=== PATIENT | female | born 1985 | race Caucasian/White ===

== ENCOUNTER 2022-04-27 12:28 | Outpatient (CLI) | payer BC, SELFPAY ==
[2022-04-27 14:29] LABS: Chloride* 105 mmol/L (96-114)
[2022-04-27 14:30] LABS: Potassium* 5.1 mmol/L (3.6-5.1); Sodium* 136 mmol/L (135-149)
[2022-04-27 14:32] LABS: Carbon Dioxide* 24 mmol/L (20-32); Creatinine* 0.7 mg/dL (0.5-1.5); Estimated Glomerular Filt Rate 114.88
[2022-04-27 14:33] LABS: Blood Urea Nitrogen* 11 mg/dL (5-24); Calcium* 9.3 mg/dL (8.4-10.6); Glucose* 92 mg/dL (60-115)
== END 2022-04-27 12:29 | disposition home or self-care (01) ==
LOC: FBOREF 12:33
PROVIDERS: PCP Family Medicine; Visit Provider Family Medicine
DX: Z01.818 Encounter for other preprocedural examination (principal); M25.561 Pain in right knee
CPT/HCPCS: 80048

== ENCOUNTER 2022-05-15 17:19 | Emergency (ER) | payer BC, SELFPAY ==
[2022-05-15 17:32] VITALS: BP 103/67; PULSE 86; RESP 18; TEMP 36.3; O2SAT 99; BMI 28.3
--- NOTE | 2022-05-15 17:51 | ED.GENADULT ---
HPI - General Adult General Time Seen by Provider: 17:51 Date Seen: 05/15/22 Chief complaint: Jaw Injury/Pain Stated complaint: RIGHT JAW SWELLING,HEADACHE,NAUSEA,CONGESTION Time Seen by Provider: 05/15/22 17:25 Source: patient Mode of arrival: ambulatory Limitations: no limitations History of Present Illness HPI narrative: Patient is a 37 year white female who is scheduled for tubal ligation on Monday, but presents with right neck lymph node swelling over the last 2 days. She has no other real symptoms other than occasional fatigue little bit of diarrhea. She has not had loss of taste or smell or other COVID symptoms. No cough. Nursing staff reports that she has had some congestion and a headache. She denies abdominal pain. She has not been recently ill other than the nasal congestion. We will run a COVID test today. Related Data Home Medications Medication Instructions Recorded Confirmed metformin 500 mg tablet,extended 500 mg PO BID tab 04/27/22 04/27/22 release 24 hr metoprolol succinate 50 mg 50 mg PO QDAY tab 04/27/22 04/27/22 tablet,extended release 24 hr Previous Rx's Medication Instructions Recorded bupropion HCl 300 mg 24 hr tablet, 300 mg PO QDAY #90 tab 04/27/22 extended release clonazepam 1 mg tablet 0.5 - 1 mg PO BID PRN #60 tab 04/27/22 meloxicam 15 mg tablet 15 mg PO QDAY #30 tab 04/27/22 metformin 750 mg tablet,extended 1,500 mg PO QDAY #180 tab 04/28/22 release 24 hr cephalexin 500 mg capsule 500 mg PO BID #14 cap 05/15/22 Allergies Allergy/AdvReac Type Severity Reaction Status Date / Time tramadol Allergy Unknown Verified 04/27/22 12:03 Guinea pig epithelium Allergy Unknown Uncoded 04/27/22 12:03 Review of Systems Status of ROS: Reports: 6 or more systems reviewed and unremarkable except as noted in History and below [facility] Medical History Acute gastric ulcer without hemorrhage or perforation (11/02/18) 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) Cervical intraepithelial neoplasia grade 1 Gastroesophageal reflux disease Generalized anxiety disorder with panic attacks History of herpes simplex infection History of insulin resistance Hyperhidrosis of axilla Irritable bowel syndrome with diarrhea Palpitations Polycystic ovary syndrome Posttraumatic stress disorder (10/05/18) Restless legs syndrome 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) Surgical History History of laparoscopy Status post surgical removal of pilonidal cyst Social History Narrative: Medical marijuana use Single , 1 son, [employer] for mother, THC Smoking Status: Current every day smoker Exam Narrative: Exam Narrative: Objective: HEENT is unremarkable other than a right angle of the jaw as cervical adenitis mild tenderness, lymph node is swollen, mobile. Neck is supple Rest of HEENT is unremarkable Const: Vital Signs, click to edit/add: Vital Signs - 24 hr 05/15/22 17:32 Temperature 97.4 F L Pulse Rate [Pulse Oximeter] 86 Respiratory Rate 18 [facility] 103/67 Pulse Oximetry 99 Course Vital Signs Vital signs: Initial Vital Signs Temperature 97.4 F L 05/15/22 17:32 Temperature Source Temporal Artery Scan 05/15/22 17:32 Pulse Rate 86 05/15/22 17:32 Respiratory Rate 18 05/15/22 17:32 Blood Pressure 103/67 05/15/22 17:32 Blood Pressure Mean 79 05/15/22 17:32 Blood Pressure Position Supine 05/15/22 17:32 Pulse Oximetry 99 05/15/22 17:32 Oxygen Delivery Method 05/15/22 17:32 Vital Signs Temperature 97.4 F L 05/15/22 17:32 Pulse Rate 86 05/15/22 17:32 Respiratory Rate 18 05/15/22 17:32 Blood Pressure 103/67 05/15/22 17:32 Pulse Oximetry 99 05/15/22 17:32 Temperature 97.4 F L 05/15/22 17:32 Pulse Rate 86 05/15/22 17:32 Respiratory Rate 18 05/15/22 17:32 Blood Pressure 103/67 05/15/22 17:32 Pulse Oximetry 99 05/15/22 17:32 Medical Decision Making MDM Narrative Medical decision making narrative: Patient has cervical adenitis, will start her on Keflex 5 500 mg 2 tablets now in the ED, will check a SARs COVID test, she will cancel her surgery for Monday as she this is elective surgery. Should be on antibiotics for. Time, see some resolution of the right cervical adenitis. Before proceeding with surgery would recommend recheck with regular doctor in the next 4-5 days, will call back with the SARs/COVID result when it returns. Have her on Keflex 500 b.i.d. x7 days. Discharge Plan Discharge Clinical Impression: Acute cervical adenitis Patient Disposition: Home, Self-Care Condition: Stable Additional Instructions: rest, fluids, keflex x 7 days, update primary 2 days, cancel surgery this week Activity Level: Light activity Discharge Diet: Regular Prescriptions: New cephalexin 500 mg capsule 500 mg PO BID Qty: 14 0RF No Action metoprolol succinate 50 mg tablet extended release 24 hr 50 mg PO QDAY 0RF Label Comments: TAKE 1 TABLET BY MOUTH DAILY metformin 500 mg tablet extended release 24 hr 500 mg PO BID 0RF meloxicam 15 mg tablet 15 mg PO QDAY Qty: 30 0RF bupropion HCl 300 mg tablet extended release 24 hr 300 mg PO QDAY Qty: 90 1RF clonazepam 1 mg tablet 0.5 - 1 mg PO BID PRN (Reason: anxiety) Qty: 60 0RF metformin 750 mg tablet extended release 24 hr 1,500 mg PO QDAY Qty: 180 3RF Follow Up/Referrals: Calin Arango MD [Primary Care Provider] - Stand Alone Forms: [employer] Info Instructions
[2022-05-15] MEDS: cephALEXin 500 MG CAPSULE 1000 MG PO (17:53)
--- NOTE | 2022-05-15 18:03 | ED.NURSE ---
FAMILY THERAPIST swab for covid, pt would like to be called with results
[2022-05-15 23:21] LABS: SARS PCR* Negative SARS-CoV-2 (Negative)
== END 2022-05-15 18:05 | disposition home or self-care (01) ==
LOC: ED 17:55
PROVIDERS: Emergency Provider Family Medicine; PCP Family Medicine
DX: L04.0 Acute lymphadenitis of face, head and neck (principal)
CPT/HCPCS: 87635; 99283; A9270

== ENCOUNTER 2022-05-18 08:35 | Outpatient (CLI) | payer BC, SELFPAY ==
--- NOTE | 2022-05-18 10:00 | CRLHL7_ITS ---
For Patients: As a result of the Century Cures Act, medical imaging exams and procedure reports are released immediately into your electronic medical record. You may view this report before your referring provider. If you have questions, please contact your health care provider. INDICATION: Neck mass, tumor, or lymph node. TECHNIQUE: CT soft tissue of the neck was acquired with 95 cc of Isovue 370 IV contrast. COMPARISON: None. FINDINGS: Hypodense mass lesion in the right neck anteromedial to the sternocleidomastoid, deep to the parotid, and lateral to the carotid sheath. The mass measures 1.9 x 2.6 x 2.6 cm with nonuniform slightly enhancing rim. Hypodense central measures 26 HU No other mass or lymph node. Skull base: Unremarkable. Pharynx/Larynx/Trachea: Epiglottis is normal. Airway is patent. Adjacent soft tissues are normal. Salivary glands: Unremarkable. Thyroid gland: Unremarkable. No significant nodules. Lymph nodes: No lymphadenopathy. Vessels: Unremarkable for age. Bones: Unremarkable for age. Misc: No inflammation, mass or fluid collection. Lung apices: Unremarkable. IMPRESSION: Hypodense mass lesion in the right neck likely 2nd brachial cleft cyst with slightly prominent rim possibly due to superimposed infection. Necrotic lymph node is less likely although not entirely excluded. Recommend ENT consultation for further management and possible FNA. Please note that all CT scans at this facility use dose modulation, iterative reconstruction, and/or weight-based dosing when appropriate to reduce radiation dose to as low as reasonably achievable. Dictated by Ari Tidwell MD @ 05/18/2022 11:30:48 AM (Electronically Signed)
== END 2022-05-18 08:36 | disposition home or self-care (01) ==
PROVIDERS: PCP Family Medicine; Visit Provider Family Medicine
DX: R22.1 Localized swelling, mass and lump, neck (principal); Q18.0 Sinus, fistula and cyst of branchial cleft
CPT/HCPCS: 70491; Q9967

== ENCOUNTER 2022-06-08 11:03 | Outpatient (RCR) | payer BC, SELFPAY ==
--- NOTE | 2022-06-08 15:15 | PT.OPEX ---
PT [facility] Outpatient Eval PT [facility] Outpatient Eval Start: 06/08/22 07:58 Freq: Status: Active Protocol: Document 06/08/22 07:58 ENM (Rec: 06/08/22 12:06 ENM [id number]) E-signed By Hillary Ponce, DPT Physical Therapy Outpatient Evaluation Insurance Information Insurance Name Medicaid,Blue Cross/Blue Shield Insurance Information/Comments [place] Medical Diagnosis pain in right knee Treating Diagnosis pain in right knee knee, decreased proximal hip strength, impaired balance, decreased glute strength Referring MD Arango Subjective Subjective Patient presents to PT for complaints of the right knee giving out on her. Recently these feelings are becoming more frequent. She feels that every time she moves the knee there is a click and it will pop out. She denies any recent injuries. Back in 6th grade she did dislocate it. Will notice it with walking or going from sitting to standing . States that she feels like the knee is going sideways. She is nervous when performing the stairs, she leads with her left and then holds on tight to the railing. She has pains when the knees give out otherwise she doesn't have much significant discomfort. Does have a constant ache at the top of her knee cap. 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 Images in 2019 No MRI evidence of meniscal tear, ligamentous injury, fracture or osteochondral lesion. 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 Objective Other/Pertinent Objective ROM L knee 3-0-126 R knee 2-0-125 + for pain with knee ext hip flexion IR WNL B no pains ER WNL B no pains ankle DF and PF within normal limits, calf tightness B strength: knee extensors L 3+/5 R 4/5 hip flexors L 3+/5 R 4/5 hip abductors 4-/5 B hip extensors 4-/5 B palpation/joint mobility: patellar mobility normal mobility B + for pain palpating quad tendon and bilateral anterior joint line gait/balance: Patient ambulating with knee hyperextension bilaterally SLS no difficulty on the L, R difficulty maintaining knee extension and stability posture: bilateral increased knee extension, calcaneal eversion greater on R compared to L, 0.5 finger under the arch special tests: anterior drawer - posterior drawer - varus - valgus + for lateral joint line pains and slightly increased laxity Mcmurrays + for clicking and slight pains with IR and ER thessaly + for sharper pains with ER squat- patient with with deep squat, ankle pronation B, heels coming up off floor, wide hips and instability of the knee while performing sit to stand knee valgus and ankle pronation while performing Functional Test Performed & Score LEFS 38/80 Assessment Assessment/Impression Patient is a 37 year old female presenting with right knee pains and feelings of instability. Patient has had these pains and instability for a while but more lately they have been more frequent. They are often brought on with walking, sitting to stand and performing the stairs. She had an MRI 2 years ago with no significant findings although symptoms were present at that time. 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 Her primary goal for PT is to improve pain and knee stability. Upon assessment patients concordant pains brought on with end range knee extension, palpation of joint line and superior patella, Mcmurrays, Thessaly and Valgus knee testing. Patient displays significant ankle pronation with squatting and sit to stands. As well as knee hyperextension bilaterally in standing and with ambulation. Global proximal hip and glute weakness noted with MMT. As well as significant difficulty maintaining balance and stability with R SLS. Symptoms consistent with likely meniscus pathology. Patient would greatly benefit from skilled PT to address impairments stated above in order to be able to perform all functional mobility and caregiving activities without significant discomfort or difficulty Primary Functional Limitations walking, stairs, sit to stands Plan of Care Rehabilitation Potential Good Physical Therapy Goals In 8 weeks: 1. Patient will be IND with HEP and self management of symptoms 2. Patient will be able to walk with less than 2/10 and no reports of knee buckling to demonstrate improvements in walking tolerance 3. Patient will be able to perform the stairs with less reliance of railing and improved confidence for household navigation 3. Patient will be able to perform x5 squat with improved knee form and posture to decrease risk of reinjury with caregiving activities 4. Patient will perform sit to stands consistently throughout her day without reports of knee catching or instability for improved ease of transfers 5. Patient will improve LEFS from 38 to 47 (MDC 9) to demonstrate improvements in LE functional ability Coordination/Communication With Referral Source Treatment Plan/Direct Interventions Electrical Stimulation,Gait Training,Ice/Cold/ Vasopneumatic,Joint Mobilization,Manual Therapy, Neuromuscular Re-ed,Self-Care/ Home Management,Therapeutic Activities,Therapeutic Exercises Frequency/Duration 1x a week for 8 weeks, as needed for 2-3 visits Patient Will Be Discharged From Therapy Completion of LTG(s), Independent w/HEP Evaluation Billing Untimed Code Treatment Minutes 29 Complexity Moderate Certification Information Initial Certification Date 06/08/22 Ending Certification Date 08/31/22 Provider Signature Shows Agreement With POC & Medical Necessity Physician Comment/Change Comment or Changes Physician NPI Number #
== END 2022-08-24 13:51 | disposition home or self-care (01) ==
PROVIDERS: PCP Family Medicine; Visit Provider Family Medicine
DX: M25.561 Pain in right knee (principal); Z51.89 Encounter for other specified aftercare
CPT/HCPCS: 97110; 97162

== ENCOUNTER 2022-06-09 09:03 | Day surgery (SDC) | payer BC, SELFPAY ==
[2022-06-09] VITALS (20 sets, daily range): BP systolic 66–108; BP diastolic 21–73; PULSE 44–90; RESP 10–16; TEMP 35.9–36.6; O2SAT 90–100; BMI 33.7
[2022-06-09] MEDS: LACTATED RINGERS 1000 ML 1,000 ML 100 ML IV (09:30)
[2022-06-09] MEDS: LACTATED RINGERS 1000 ML 1,000 ML 35 ML IV (09:30)
[2022-06-09] MEDS: SODIUM CHLORIDE 0.9 % (FLUSH) 10 ML SYRINGE IVF (09:30)
--- NOTE | 2022-06-09 12:36 | W.ANESCHARGE ---
Anesthesia Charges Start Date/Time Anesthesia Start Date: 06/09/22 Anesthesia Start Time: 11:25 Stop Date/Time Anesthesia Stop Date: 06/09/22 Anesthesia Stop Time: 12:35 Summary Emergency: No
--- NOTE | 2022-06-09 12:44 | W.PM.GYNPROC ---
Procedure Note Date Seen: 06/09/22 Procedure Details: PREOPERATIVE DIAGNOSIS: Undesired fertility POSTOPERATIVE DIAGNOSIS: Same PROCEDURE: Laparoscopic bilateral salpingectomy SURGEON: Neelam Leong MD ANESTHESIA: General IV FLUIDS: 800 mL crystalloid URINE OUTPUT: 100 mL EBL: Less than 5 mL FINDINGS: 1. Upon pelvic exam under anesthesia, the cervix and vagina were normal in appearance. Uterus was mobile and anteverted, of normal size and texture. There were no palpable adnexal masses. 2. Upon laparoscopy, survey of the upper abdomen revealed a normal appearance to the inferior edge of the liver, gallbladder and stomach. Bowels were grossly normal appearance, as was the appendix. Survey of the pelvis revealed normal appearance to the uterus. Bilateral tubes and ovaries were normal in appearance. The cul-de-sac and bladder reflection were normal in appearance. COMPLICATIONS: None PROCEDURE IN DETAIL: Patient was taken to the operating room with IV running. She was positioned in dorsal lithotomy position with her legs fully supported in Yellofin stirrups. General anesthesia was administered. She was prepped and draped in the usual sterile fashion. Bimanual exam was performed for the above-noted findings. Speculum was inserted. A single-toothed uterine manipulator was inserted through the cervix into the lower uterine segment, and affixed to the anterior cervical lip. Speculum was removed. Johnson catheter was placed. Patient's legs were placed in neutral position. Attention was turned to patient's abdomen. The infraumbilical area was infiltrated with small amount of Marcaine. An infraumbilical incision was made with a scalpel and carried through to the underlying layer of fascia with a hemostat. The 5 mm Fios Kii trocar was assembled with laparoscope within, and insufflator attached. While tenting up the abdomen manually, the trocar was passed through the anterior abdominal wall into the peritoneal cavity. Trocar was removed. Pneumoperitoneum was achieved. Survey of abdomen and pelvis revealed the above-noted findings. Two additional port sites were created. The first was in the patient's left lower quadrant, just superior medial to the left ASIS. The second was a hand's breath superior to and slightly medial to the 1st. Each was infiltrated with small amount of Marcaine prior to incision. A 5 mm incision was made at each site, making sure the large vessels were out of harm's way. A 5 mm Fios Kii port was inserted at each site, under direct visualization and without complication. The balloon on each of the ports was inflated, holding each in place. The left fallopian tube was grasped at its fimbriated edge. It was divided from its vascular supply with the LigaSure device, and dissection was moved laterally to medially through the mesosalpinx, reaching the left uterine cornua. The tube was then cauterized and transected at the cornua. It was removed from the abdomen and sent to pathology. Attention was then turned to the right fallopian tube, for which the vascular supply was similarly cauterized and transected with the LigaSure. Dissection moved laterally to medially through the mesosalpinx, reaching the right uterine cornua. Tube was cauterized and transected at the cornua. Hemostasis was noted at both sites. All instruments were removed from the laparoscopic ports. Insufflation was released. Balloon tips on all port sites were deflated. Each port was removed. The skin of each port site was closed with a subcuticular stitch of 4-0 Monocryl. Surgical glue was applied above this. The uterine manipulator was removed. Speculum exam revealed some bleeding of the anterior lip of the cervix, addressed with silver nitrate stick. Johnson catheter was removed. Patient tolerated procedure well and was taken to recovery area in stable condition.
[2022-06-09] MEDS: ePHEDrine sulfate 5 MG/ML inj IVP ×2 (12:55→13:29)
[2022-06-09] MEDS: diphenhydrAMINE 50 MG/ML inj IVP (12:57)
[2022-06-09] MEDS: PHENYLEPHRINE 100 MCG/ML SYRINGE IVP ×4 (13:10→13:45)
--- NOTE | 2022-06-09 14:39 | PC.NURSE ---
anesthesia is aware of low bp. pt is completely asymptomatic. she is fully alert, eating drinking. head is only very slightly elevated so she can safely drink. fluids are open. cuff has been changed, site changed. no difference
[2022-06-10 09:01] LABS: Ur HCG Qualitative* Negative (Negative)
--- NOTE | 2022-06-20 09:35 | SUR.OPER ---
OUT OF ROOM AND ANESTHESIA END TIMES CALCULATED FROM ANESTHESIA'S DOCUMENTATION OF THEIR TIMES.
== END 2022-06-09 15:07 | disposition home or self-care (01) ==
PROVIDERS: Obstetrics & Gynecology; PCP Family Medicine; Visit Provider Obstetrics & Gynecology
PROC: (CPT 58661; principal; 2022-06-09 10:15)
DX: Z30.2 Encounter for sterilization (principal)
CPT/HCPCS: 58661; 00840; 36415; 81025; 84703; 85018; 86850; 86900; 86901; 88302; J0330; J1100; J1200; J1885; J2250; J2370; J2405; J2704; J2710; J3010; J7120

== ENCOUNTER 2022-08-08 08:51 | Outpatient (CLI) | payer BC, SELFPAY ==
[2022-08-08 13:46] LABS: Chloride* 101 mmol/L (96-114); Sodium* 138 mmol/L (135-149)
[2022-08-08 13:48] LABS: Creatinine* 0.9 mg/dL (0.5-1.5); Estimated Glomerular Filt Rate 85 ml/min
[2022-08-08 13:49] LABS: Blood Urea Nitrogen* 18 mg/dL (5-24); Carbon Dioxide* 27 mmol/L (20-32); Glucose* 89 mg/dL (60-115)
[2022-08-08 14:39] LABS: SARS PCR* Negative SARS-CoV-2 (Negative)
== END 2022-08-08 08:52 | disposition home or self-care (01) ==
PROVIDERS: PCP Family Medicine; Visit Provider Family Medicine
DX: Z01.818 Encounter for other preprocedural examination (principal)
CPT/HCPCS: 80048; 87635

== ENCOUNTER 2022-11-16 14:04 | Outpatient (CLI) | payer BC, SELFPAY ==
[2022-11-16 17:35] LABS: Albumin* 3.8 g/dL (3.3-5.0); Chloride* 110 mmol/L (96-114); Potassium* 4.3 mmol/L (3.6-5.1); Sodium* 139 mmol/L (135-149)
[2022-11-16 17:37] LABS: Bilirubin Total* 0.6 mg/dL (0.1-1.5); Carbon Dioxide* 25 mmol/L (20-32); Creatinine* 0.6 mg/dL (0.5-1.5); Estimated Glomerular Filt Rate 119 ml/min
[2022-11-16 17:38] LABS: Alanine Aminotransferase* 50 U/L (4-35); Alkaline Phosphatase* 39 U/L (40-150); Aspartate Amino Transferase* 113 U/L (12-35); Blood Urea Nitrogen* 6 mg/dL (5-24); Calcium* 9.3 mg/dL (8.4-10.6); Glucose* 85 mg/dL (60-115); Total Protein* 6.4 g/dL (6.0-8.3)
[2022-11-16 20:54] LABS: Creatine Kinase* 4253 U/L (41-117)
== END 2022-11-16 14:05 | disposition home or self-care (01) ==
PROVIDERS: PCP Family Medicine; Visit Provider Internal Medicine
DX: M62.82 Rhabdomyolysis (principal)
CPT/HCPCS: 80053; 82550; 87086

== ENCOUNTER 2022-11-21 11:07 | Emergency (ER) | payer BC, SELFPAY ==
[2022-11-21 11:11] VITALS: BP 110/71; PULSE 65; RESP 18; TEMP 36.8; O2SAT 100; BMI 27.8
[2022-11-21] MEDS: 0.9 % SODIUM CHLORIDE 1000 ml 1,000 ML 6000 ML IV (11:53)
[2022-11-21 12:00] LABS: Basophils Absolute Auto 0.01 K/uL (0.00-0.30); Basophils Percent Auto 0.1 % (0.0-3.0); Eosinophils Absolute Auto 0.28 K/uL (0.00-0.50); Eosinophils Percent Auto 3.7 % (0.0-7.0); Hematocrit 34.3 % (33.0-51.0); Hemoglobin* 11.8 gm/dL (12.0-16.0); Immature Granulocytes Abs Auto 0.01 K/uL (0.00-0.30); Immature Granulocytes Pct Auto 0.1 %; Lymphocytes Absolute Auto 2.44 K/uL (0.90-2.90); Lymphocytes Percent Auto 32.1 % (20-44); Mean Corpuscular HGB Conc 34 gm/dL (32-36); Mean Corpuscular Hemoglobin 31 pg (26-34); Mean Corpuscular Volume 90 fL (80-100); Monocytes Percent Auto 5.7 % (0.0-11.0); Neutrophils Absolute Auto 4.43 K/uL (1.7-7.0); Neutrophils Percent Auto 58.3 % (42.0-72.0); Platelet Count* 503 K/uL (140-440); RDW Coefficient of Variation % 13.6 % (11.5-15.5); Red Blood Count 3.81 m/uL (4.00-5.20)
[2022-11-21 12:03] LABS: Slide Review Reflex No
[2022-11-21 12:11] LABS: Chloride* 110 mmol/L (96-114); Sodium* 140 mmol/L (135-149)
[2022-11-21 12:12] LABS: Potassium* 3.4 mmol/L (3.6-5.1)
[2022-11-21 12:14] LABS: Carbon Dioxide* 27 mmol/L (20-32); Creatinine* 0.7 mg/dL (0.5-1.5); Est. Creatinine Clearance* 95.94; Estimated Glomerular Filt Rate 115 ml/min
[2022-11-21 12:15] LABS: Alanine Aminotransferase* 29 U/L (4-35); Alkaline Phosphatase* 45 U/L (40-150); Amylase* 83 U/L (18-89); Aspartate Amino Transferase* 22 U/L (12-35); Bilirubin Direct* 0.2 mg/dL (0.0-0.5); Bilirubin Total* 0.4 mg/dL (0.1-1.5); Blood Urea Nitrogen* 17 mg/dL (5-24); Creatine Kinase* 84 U/L (41-117); Glucose* 97 mg/dL (60-115); Total Protein* 6.8 g/dL (6.0-8.3)
[2022-11-21 12:19] LABS: C Reactive Protein* < 0.5 mg/dL (0.5-1.0)
--- NOTE | 2022-11-21 12:34 | ED_ITS ---
"HPI - General Adult General Chief complaint: Back Injury/Pain Stated complaint: mid lower back pain Time Seen by Provider: 11/21/22 11:08 History of Present Illness HPI narrative: Patient is a 37 year white female who has got multiple medical issues, follows with Dr. Arango, was admitted by her report with rhabdomyolysis to the [facility] for an overnight hydration episode within the last week or 2. She is feeling better and then today feels a little more fatigued presents to the ED. she reports she has had a history kidney stones, her medication and chart is reviewed. She denies hematuria, denies shortness of breath, denies chest pain, she gets occasional achiness in her back. She has no skin rashes no fever. Related Data Home Medications Medication Instructions Recorded Confirmed valacyclovir 1 gram tablet 1,000 mg PO DAILY 05/23/22 10/10/22 Cannabinoids PO 08/05/22 10/10/22 Previous Rx's Medication Instructions Recorded metformin 750 mg tablet,extended 1,500 mg PO QDAY #180 tabs 04/28/22 release 24 hr metoprolol succinate 50 mg 50 mg PO QDAY #90 tabs 07/11/22 tablet,extended release 24 hr meloxicam 15 mg tablet 15 mg PO QDAY #90 tabs 09/06/22 prochlorperazine maleate 10 mg 10 mg PO TID PRN nausea and 09/15/22 tablet (Compazine) vomiting #30 tabs escitalopram oxalate 5 mg tablet 5 - 20 mg PO QDAY #70 tabs 10/04/22 (Lexapro) sumatriptan succinate 6 mg/0.5 mL 6 mg (0.5 mL) subcut BID PRN 10/18/22 subcutaneous solution migraine headache #2.5 mL dextroamphetamine-amphetamine ER 10 mg PO QAM #7 caps 10/20/22 10 mg 24hr capsule,extend release (Adderall XR) dextroamphetamine-amphetamine ER 20 mg PO QAM #90 caps 10/20/22 20 mg 24hr capsule,extend release (Adderall XR) clonazepam 1 mg tablet 0.5 - 1 mg PO BID PRN anxiety #60 11/14/22 tabs Allergies Allergy/AdvReac Type Severity Reaction Status Date / Time tramadol Allergy Unknown Verified 11/16/22 13:43 Guinea pig epithelium Allergy Unknown Uncoded 11/16/22 13:43 Review of Systems Status of ROS: Reports: 10 or more systems reviewed and unremarkable except as noted in History and below PFSH FOR[facility]LY [facility] Medical History Acute gastric ulcer without hemorrhage or perforation (11/02/18) Anxiety 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) Borderline personality disorder Cervical intraepithelial neoplasia grade 1 Depression Gastroesophageal reflux disease Generalized anxiety disorder with panic attacks History of herpes simplex infection History of insulin resistance Hyperhidrosis of axilla Irritable bowel syndrome with diarrhea Marijuana use Migraine Palpitations Polycystic ovary syndrome Post-traumatic stress Posttraumatic stress disorder (10/05/18) Restless legs syndrome Rhabdomyolysis 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) Surgical History History of laparoscopy History of tubal ligation Second branchial cleft cyst Status post surgical removal of pilonidal cyst Social History Narrative: Medical marijuana use 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, 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, 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, 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 Smoking Status: Current every day smoker How often do you have a drink containing alcohol: monthly or less How many standard drinks containing alcohol do you have on a typical day: 1 or 2 AUDIT-C Alcohol total score: 1 Non-prescribed substance use: denies use Caffeine: Yes Little interest or pleasure in doing things: more than half the days Feeling down, depressed, or hopeless: nearly every day service: No Exam Narrative: Exam Narrative: Objective: Patient's vital signs unremarkable she is alert orient x3, no distress, no cyanosis HEENT unremarkable pulse regular abdomen benign soft nontender back exam is unremarkable no CVA tenderness Extremities good perfusion neurologic nonfocal Const: Vital Signs, click to edit/add: Vital Signs - 24 hr 11/21/22 11:11 Temperature 98.2 F Pulse Rate [Right Pulse Oximeter] 65 Respiratory Rate 18 Blood Pressure [Ri ght Upper Arm] 110/71 Pulse Oximetry 100 Oxygen Delivery Me thod Room Air Course Vital Signs Vital signs: Initial Vital Signs Temperature 98.2 F 11/21/22 11:11 Temperature Source Temporal Artery Scan 11/21/22 11:11 Pulse Rate 65 11/21/22 11:11 Respiratory Rate 18 11/21/22 11:11 Blood Pressure 110/71 11/21/22 11:11 Blood Pressure Mean 84 11/21/22 11:11 Blood Pressure Position Sitting 11/21/22 11:11 Pulse Oximetry 100 11/21/22 11:11 Oxygen Delivery Method 11/21/22 11:11 Vital Signs Temperature 98.2 F 11/21/22 11:11 Pulse Rate 65 11/21/22 11:11 Respiratory Rate 18 11/21/22 11:11 Blood Pressure 110/71 11/21/22 11:11 Pulse Oximetry 100 11/21/22 11:11 Oxygen Delivery Method 11/21/22 11:11 Temperature 98.2 F 11/21/22 11:11 Pulse Rate 65 11/21/22 11:11 Respiratory Rate 18 11/21/22 11:11 Blood Pressure 110/71 11/21/22 11:11 Pulse Oximetry 100 11/21/22 11:11 Oxygen Delivery Method 11/21/22 11:11 Medical Decision Making MDM Narrative Medical decision making narrative: Patient is a 37 year white female on multiple medicines and has multiple medical problems with an episode of rhabdomyolysis by her history at [place]. Will recheck her CK recheck her electrolytes given IV fluid bolus of 1 L. Addendum: Patient's laboratory studies look very reassuring specifically her CK is normal sees, CRP is negative, white count is normal, hemoglobin is 11.8, platelet count is slightly elevated at 503,000 hundred three thousand potassium low normal at 3.4. Liver function profile negative., amylase normal. This point I would recommend for many that she go home rest light activity, continue her present medications, follow-up with primary care in the next 2-3 days. Push adequate fluids. Return as needed. Lab Data Labs: Lab Results 11/21/22 11/21/22 11/21/22 Range/Units 11:45 11:45 11:45 WBC 7.60 (4.50-11.00) K/uL RBC 3.81 L (4.00-5.20) m/uL Hgb 11.8 L (12.0-16.0) gm/dL Hct 34.3 (33.0-51.0) % MCV 90 (80-100) fL MCH 31 (26-34) pg MCHC 34 (32-36) gm/dL RDW Coeff of Shira 13.6 (11.5-15.5) % Plt Count 503 H (140-440) K/uL Neut % (Auto) 58.3 (42.0-72.0) % Lymph % (Auto) 32.1 (20-44) % Terrell % (Auto) 5.7 (0.0-11.0) % Eos % (Auto) 3.7 (0.0-7.0) % Baso % (Auto) 0.1 (0.0-3.0) % Neut # (Auto) 4.43 (1.7-7.0) K/uL Lymph # (Auto) 2.44 (0.90-2.90) K/uL Terrell # (Auto) 0.40 (0.00-0.90) K/UL Eos # (Auto) 0.28 (0.00-0.50) K/uL Baso # (Auto) 0.01 (0.00-0.30) K/uL Sodium 140 (135-149) mmol/L Potassium 3.4 L (3.6-5.1) mmol/L Chloride 110 (96-114) mmol/L Carbon Dioxide 27 (20-32) mmol/L BUN 17 (5-24) mg/dL Creatinine 0.7 (0.5-1.5) mg/dL Estimated Creat Clear 95.94 Estimated GFR 115 ml/min Glucose 97 (60-115) mg/dL Calcium 9.0 (8.4-10.6) mg/dL Total Bilirubin 0.4 (0.1-1.5) mg/dL Direct Bilirubin 0.2 (0.0-0.5) mg/dL AST 22 (12-35) U/L ALT 29 (4-35) U/L Alkaline Phosphatase 45 (40-150) U/L Total Creatine Kinase 84 (41-117) U/L C-Reactive Protein < 0.5 L (0.5-1.0) mg/dL Total Protein 6.8 (6.0-8.3) g/dL Albumin 4.0 (3.3-5.0) g/dL Amylase 83 (18-89) U/L Discharge Plan Discharge Clinical Impression: Fatigue Patient Disposition: Home w/ Parent or Adult Condition: Stable Additional Instructions: Rest, fluids, Tylenol as needed, follow-up with primary care in the next couple of days. Lab studies today look reassuring. Activity Level: Light activity Discharge Diet: Regular Prescriptions: No Action Cannabinoids PO escitalopram oxalate [Lexapro] 5 mg tablet 5 - 20 mg PO QDAY Qty: 70 0RF Rx Instructions: take 1 t qd x 1 wk, then 2 t qd x 1 wk, then 3 t qd x 1 wk, then 4 t qd for anxiety valacyclovir 1 gram tablet 1,000 mg PO DAILY metformin 750 mg tablet extended release 24 hr 1,500 mg PO QDAY Qty: 180 3RF metoprolol succinate 50 mg tablet extended release 24 hr 50 mg PO QDAY Qty: 90 1RF meloxicam 15 mg tablet 15 mg PO QDAY Qty: 90 1RF prochlorperazine maleate [Compazine] 10 mg tablet 10 mg PO TID PRN (Reason: nausea and vomiting) Qty: 30 1RF sumatriptan succinate 6 mg/0.5 mL solution 6 mg subcut BID PRN (Reason: migraine headache) Qty: 2.5 5RF Rx Instructions: INJECT 6 MG SC AT ONSET OF HEADACHE, MAY REPEAT ONCE IN 1 HR PRN, MAX 2 INJECTIONS/24 HRS dextroamphetamine-amphetamine [Adderall XR] 10 mg capsule,extended release 24hr 10 mg PO QAM Qty: 7 0RF dextroamphetamine-amphetamine [Adderall XR] 20 mg capsule,extended release 24hr 20 mg PO QAM Qty: 90 0RF Rx Instructions: start after seven days of 10 mg tab daily clonazepam 1 mg tablet 0.5 - 1 mg PO BID PRN (Reason: anxiety) Qty: 60 0RF Follow Up/Referrals: Calin Arango MD [Primary Care Provider] - Stand Alone Forms: Mult[employer] | QuizScore Info Instructions"
== END 2022-11-21 12:44 | disposition home or self-care (01) ==
PROVIDERS: Emergency Provider Family Medicine; PCP Family Medicine
DX: R53.83 Other fatigue (principal)
CPT/HCPCS: 36415; 80048; 80076; 82150; 82550; 85025; 86140; 99283; 99284; J7030

== ENCOUNTER 2022-11-24 09:48 | Outpatient (CLI) | payer BC, SELFPAY ==
[2022-11-24 13:51] LABS: Chloride* 109 mmol/L (96-114)
[2022-11-24 13:52] LABS: Albumin* 4.1 g/dL (3.3-5.0); Potassium* 5.1 mmol/L (3.6-5.1); Sodium* 139 mmol/L (135-149)
[2022-11-24 13:54] LABS: Creatinine* 0.6 mg/dL (0.5-1.5); Estimated Glomerular Filt Rate 119 ml/min
[2022-11-24 13:55] LABS: Alanine Aminotransferase* 25 U/L (4-35); Alkaline Phosphatase* 47 U/L (40-150); Aspartate Amino Transferase* 24 U/L (12-35); Bilirubin Total* 0.4 mg/dL (0.1-1.5); Blood Urea Nitrogen* 20 mg/dL (5-24); Calcium* 9.6 mg/dL (8.4-10.6); Carbon Dioxide* 25 mmol/L (20-32); Creatine Kinase* 60 U/L (41-117); Glucose* 93 mg/dL (60-115); Total Protein* 6.8 g/dL (6.0-8.3)
== END 2022-11-24 09:49 | disposition home or self-care (01) ==
PROVIDERS: PCP Family Medicine; Visit Provider Family Medicine
DX: M62.82 Rhabdomyolysis (principal)
CPT/HCPCS: 80053; 82550; 83735

== ENCOUNTER 2023-04-04 11:02 | Outpatient (CLI) | payer BC, SELFPAY | END 2023-04-04 11:03 | disposition home or self-care (01) | PROVIDERS: PCP Family Medicine; Visit Provider Nurse Practitioner Family | DX: Z79.899 Other long term (current) drug therapy (principal) | CPT/HCPCS: 80061; 82306; 84443 ==

== ENCOUNTER 2023-08-10 13:02 | Outpatient (CLI) | payer BC, SELFPAY ==
--- OUTSIDE RECORDS SUMMARY | 2023-08-13 17:05 | XMS_ITS | Continuity of Care Document ---
Author Name Unknown Organization [facility] Address [address] [place] [address] Phone Care Team Providers Care Fiberglass Quality Technician Name Role Phone Kaila BENJAMIN, PhD, Jag Unavailable Unavai lable Allergies, Adverse Reactions, Alerts Substance Reaction Status Criticality tramadol Active No Information Medications Medication Instructions Dosage Effective Dates (start - stop) Status Comments VALACYCLOVIR (unknown strength) Not Available - Active SUMATRIPTAN (unknown strength) Not Available - Active SPIRONOLACTONE (unknown strength) Not Available - Active PRAMIPEXOLE DIHYDROCHLORIDE (unknown strength) Not Available - Active ONDANSETRON ODT (unknown strength) Not Available - Active NORLYDA (unknown strength) Not Available - Active METFORMIN HCL (unknown strength) Not Available - Active LORAZEPAM (unknown strength) Not Available - Active LIDOCAINE (unknown strength) Not Available - Active GLYCOPYRROLATE (unknown strength) Not Available - Active GABAPENTIN (unknown strength) Not Available - Active CYCLOBENZAPRINE HCL (unknown strength) Not Available - Active BACLOFEN (unknown strength) Not Available - Active Procedures Procedure Date Office/Outpatient Visit,New, Mod 2020 X-Ray Exam Of Neck Spine, 4+ Views Advance Directives Directive Yes / No Effective Date File Name No Information Encounters Encounter Description Practice Location Reason(s) For Visit Diagnoses Date Provider Providers Copied on Encounter [facility], [address], [place], [id number], [place] tel:[phone] [facility] No Information [facility]. [facility], [address], [place], [address], [place]. tel:[phone] Office/Outpat ient Visit,New, Mod [facility], [address], [facility] [place] [place], [id number], [place] tel:[phone] [facility] No Information 1 Kaila Rm. [facility], [address], [place], [address], [place]. tel:[phone] Referring Provider: Calin Arango, [address], [address]. tel:[phone] Family History Family Member Type Diagnosis Age At Onset No Information Payers Payer name Insurance type Covered libertarian ID Authordanyell hargrove(s) BS [employer] (BRENDA) [id number] Social History Type Description Quantity Date Captured Comments Sex Female Smoking Status No Information Chief Complaint And Reason For Visit No Information Reason For Referral Reason For Referral No Information History Of Present Illness Encounter Date Complaint History Of Prese nt Illness No Information Functional Status Date Functional Assessmen t No Information Instructions Date Instruction Additional Infor mation No Information Assessments Type Assessment Date No Information Patient Care Teams Name Effective Dates (start - stop) Status Members No Information
== END 2023-08-10 13:03 | disposition home or self-care (01) ==
LOC: NFLDREF 08-13 17:04
PROVIDERS: PCP Family Medicine; Referring Provider Family Medicine; Visit Provider Family Medicine
DX: R30.0 Dysuria (principal); F41.1 Generalized anxiety disorder; F41.0 Panic disorder [episodic paroxysmal anxiety]; L73.2 Hidradenitis suppurativa; M54.9 Dorsalgia, unspecified
CPT/HCPCS: 81001

== ENCOUNTER 2023-08-25 13:41 | Emergency (ER) | payer BC, SELFPAY ==
[2023-08-25 13:59] VITALS: BP 105/69; PULSE 74; RESP 16; TEMP 36.7; O2SAT 100; BMI 22.3
--- NOTE | 2023-08-25 14:18 | CRLHL7_ITS ---
For Patients: As a result of the Century Cures Act, medical imaging exams and procedure reports are released immediately into your electronic medical record. You may view this report before your referring provider. If you have questions, please contact your health care provider. INDICATION: Chest pain and shortness of breath. TECHNIQUE: Chest 2 views. COMPARISON: November 06, 2017. FINDINGS: Cardiovascular and mediastinum: Heart size and vasculature are normal in caliber and appearance. Lungs and pleural spaces: Lungs are clear. No sign of infiltrate or mass. No sign of pleural effusion. No pneumothorax. Bones and soft tissues: No significant findings. IMPRESSION: No acute or significant findings. Dictated by Ruben Carrasco MD @ 08/25/2023 3:42:52 PM (Electronically Signed)
--- OUTSIDE RECORDS SUMMARY | 2023-08-25 14:31 | XMS_ITS | Continuity of Care Document ---
Author Name Unknown Organization [facility] Address [address] [place] [address] Phone Care Team Providers Care Faculty Research Assistant Name Role Phone Kaila BENJAMIN, PhD, Jag [...] Copied on Encounter [facility], [address], [place], [id number], [place] tel:[phone] [facility] No Information Kaila Rm. [facility], [address], [place], [address], [place]. tel:[phone] Office/Outpat ient Visit,New, Mod [facility], [address], [facility] [place], [id number], [place] tel:[phone] [facility] No Information 1 Kaila [facility]m. [facility], [address], [place], [address], [place]. tel:[phone] Referring Provider: Calin Arango, [address], [address]. tel:[phone] Family History Family Member Type Diagnosis Age At Onset No Information Payers Payer name Insurance type Covered alliance party ID Authordanyell hargrove(s) BS [employer] (BRENDA) [id number] Social History Type Description Quantity Date Captured [...]
[2023-08-25 14:41] LABS: Basophils Absolute Auto 0.02 K/uL (0.00-0.30); Basophils Percent Auto 0.2 % (0.0-3.0); Eosinophils Absolute Auto 0.32 K/uL (0.00-0.50); Eosinophils Percent Auto 3.5 % (0.0-7.0); Hematocrit 39.7 % (33.0-51.0); Hemoglobin* 13.2 gm/dL (12.0-16.0); Immature Granulocytes Abs Auto 0.01 K/uL (0.00-0.30); Immature Granulocytes Pct Auto 0.1 %; Lymphocytes Absolute Auto 3.64 K/uL (0.90-2.90); Lymphocytes Percent Auto 39.3 % (20-44); Mean Corpuscular HGB Conc 33 gm/dL (32-36); Mean Corpuscular Hemoglobin 33 pg (26-34); Mean Corpuscular Volume 99 fL (80-100); Neutrophils Absolute Auto 4.54 K/uL (1.7-7.0); Neutrophils Percent Auto 48.9 % (42.0-72.0); Platelet Count* 547 K/uL (140-440); RDW Coefficient of Variation % 12.8 % (11.5-15.5); Red Blood Count 4.02 m/uL (4.00-5.20); White Blood Count* 9.27 K/uL (4.50-11.00)
[2023-08-25 14:48] LABS: Albumin* 4.2 g/dL (3.3-5.0); Chloride* 96 mmol/L (96-114); Sodium* 137 mmol/L (135-149)
[2023-08-25 14:49] LABS: Potassium* 3.4 mmol/L (3.6-5.1)
[2023-08-25 14:50] LABS: Creatinine* 0.8 mg/dL (0.5-1.5); Est. Creatinine Clearance* 83.14; Estimated Glomerular Filt Rate 97 ml/min
[2023-08-25 14:51] LABS: Alanine Aminotransferase* 42 U/L (4-35); Alkaline Phosphatase* 48 U/L (40-150); Anion Gap 13 mEq/L (7-15); Aspartate Amino Transferase* 40 U/L (12-35); Bilirubin Total* 0.5 mg/dL (0.1-1.5); Blood Urea Nitrogen* 11 mg/dL (5-24); Calcium* 9.1 mg/dL (8.4-10.6); Carbon Dioxide* 28 mmol/L (20-32); Glucose* 76 mg/dL (60-115); Lipase* 52 U/L (23-300); Total Protein* 7.2 g/dL (6.0-8.3)
[2023-08-25 14:54] LABS: Slide Review Reflex No
[2023-08-25] MEDS: KETOROLAC 15 MG/ML inj IVP (15:03)
[2023-08-25] MEDS: diphenhydrAMINE 50 MG/ML inj 25 MG IVP (15:03)
[2023-08-25] MEDS: METOCLOPRAMIDE HCL 5 MG/ML INJ 10 MG IVP (15:03)
[2023-08-25] MEDS: LACTATED RINGERS 1000 ML 1,000 ML IV (15:03)
[2023-08-25 15:25] LABS: PCR FLU A Negative PCR FLU A (Negative); PCR FLU B Negative PCR FLU B (Negative)
[2023-08-25 15:28] LABS: SARS PCR* Negative SARS-CoV-2 (Negative)
--- NOTE | 2023-08-25 15:34 | ED_ITS ---
HPI - General Adult General Chief complaint: Nausea/Vomiting Stated complaint: here yest, chest pain/nausea-Rx reaction Percocet? Time Seen by Provider: 08/25/23 14:08 Related Data Home Medications Medication Instructions Recorded Confirmed Cannabinoids PO 08/05/22 08/10/23 Previous Rx's Medication Instructions Recorded meloxicam 15 mg tablet 15 mg PO QDAY #90 tabs 09/06/22 sumatriptan succinate 6 mg/0.5 mL 6 mg (0.5 mL) subcut Q1-4H PRN 11/28/22 subcutaneous pen injector (Imitrex migraine headache #2 mL STATdose Pen) valacyclovir 1 gram tablet 1,000 mg PO DAILY #90 tabs 12/08/22 metoprolol succinate 50 mg 50 mg PO QDAY #90 tabs 04/19/23 tablet,extended release 24 hr lamotrigine 100 mg tablet 100 mg PO BID #60 tabs 06/01/23 (Lamictal) dextroamphetamine-amphetamine ER 20 mg PO QAM #30 caps 07/06/23 20 mg 24hr capsule,extend release (Adderall XR) clonazepam 1 mg tablet 0.5 - 1 mg (0.5 - 1 x 1 mg) PO BID 08/10/23 PRN anxiety #40 tabs oxycodone 5 mg tablet 5 mg PO Q6H PRN pain #6 caps 08/25/23 Allergies Allergy/AdvReac Type Severity Reaction Status Date / Time tramadol Allergy Unknown Verified 08/25/23 14:06 Guinea pig epithelium Allergy Unknown Uncoded 08/10/23 11:52 PFSH PFSH Medical History (Updated 08/25/23 @ 16:14 by Dipak Marina DO) Major depression, recurrent ?F33.9 - Major depressive disorder, recurrent, unspecified (ICD-10) Rhabdomyolysis ?M62.82 - Rhabdomyolysis (ICD-10) 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) ?M26.609 - Unspecified temporomandibular joint disorder, unspecified side (ICD-10) Restless legs syndrome ?G25.81 - Restless legs syndrome (ICD-10) Posttraumatic stress disorder (10/05/18) ?F43.10 - Post-traumatic stress disorder, unspecified (ICD-10) Polycystic ovary syndrome ?E28.2 - Polycystic ovarian syndrome (ICD-10) Migraine ?G43.909 - Migraine, unspecified, not intractable, without status migrainosus (ICD-10) Irritable bowel syndrome with diarrhea ?K58.0 - Irritable bowel syndrome with diarrhea (ICD-10) Hyperhidrosis of axilla ?L74.510 - Primary focal hyperhidrosis, axilla (ICD-10) History of insulin resistance ?Z86.39 - Personal history of other endocrine, nutritional and metabolic disease (ICD-10) History of herpes simplex infection ?Z86.19 - Personal history of other infectious and parasitic diseases (ICD- 10) Generalized anxiety disorder with panic attacks ?F41.1 - Generalized anxiety disorder (ICD-10) ?F41.0 - Panic disorder [episodic paroxysmal anxiety] (ICD-10) Gastroesophageal reflux disease ?K21.9 - Gastro-esophageal reflux disease without esophagitis (ICD-10) Cervical intraepithelial neoplasia grade 1 ?N87.0 - Mild cervical dysplasia (ICD-10) 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) ?F98.8 - Other specified behavioral and emotional disorders with onset usually occurring in childhood and adolescence (ICD-10) Acute gastric ulcer without hemorrhage or perforation (11/02/18) ?K25.3 - Acute gastric ulcer without hemorrhage or perforation (ICD-10) Surgical History History of tubal ligation ?Z98.51 - Tubal ligation status (ICD-10) Second branchial cleft cyst ?Q18.0 - Sinus, fistula and cyst of branchial cleft (ICD-10) Status post surgical removal of pilonidal cyst ?Z98.890 - Other specified postprocedural states (ICD-10) History of laparoscopy ?Z98.890 - Other specified postprocedural states (ICD-10) Family History (Updated 11/26/22 @ 21:48 by Calin Arango MD) Son Autism Social History (Updated 08/10/23 @ 13:02 by Shahrzad Palomo ~ [facility], [facility]) Narrative: Medical marijuana use, Single, 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 (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), 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, 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, 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 What is your current living situation?: I presently have a place to live Problems where you live: mold In the past 12 months, utilities in danger of being shut off: yes In past 12 months, lack of transportation kept you from medical appts, meetings, work, or getting things needed for daily living: no In the past 12 mos, have been you worried that your food would run out before you had money to buy more?: sometimes true In the past 12 mos, the food you bought just didn't last and you didn't have money to buy more?: sometimes true Smoking Status: Never smoker How often do you have a drink containing alcohol: monthly or less How many standard drinks containing alcohol do you have on a typical day: 1 or 2 AUDIT-C Alcohol total score: 1 Non-prescribed substance use: denies use Caffeine: Yes How often does anyone, including family, friends and others, physically hurt you : never How often does anyone, including family, friends and others, insult or talk down to you: sometimes How often does anyone, including family, friends and others, threaten you with harm: never How often does anyone, including family, friends and others, scream or curse at you: never Little interest or pleasure in doing things: more than half the days Feeling down, depressed, or hopeless: nearly every day service: No Exam Narrative: Exam Narrative: Const: Well-nourished, Well-developed, in mild distress Eyes: PERRL, no conjunctival injection, and symmetrical lids HENT: Atraumatic external nose and ears. Moist mucous membranes. Neck: Symmetric, trachea midline, No thyromegaly. CVS: RRR, No murmurs or gallops. Peripheral pulses 2+ and equal in all extremities RESP: Unlabored respiratory effort. Clear to auscultation bilaterally. GI: Nontender/Nondistended, No rebound or guarding. MSK:Extremities w/o deformity, Normal Active ROM Skin: Warm, Dry. No rashes or lesions. Neuro: Normal Muscle tone, No focal neurological deficits. Psych: Awake, Alert, & Oriented x3. Appropriate mood and affect. Const: Vital Signs, click to edit/add: Vital Signs - 24 hr 08/25/23 13:59 Temperature 98.0 F Pulse Rate [Pulse Oximeter] 74 Respiratory Rate 16 Blood Pressure [Ri ght Upper Arm] 105/69 Pulse Oximetry 100 Oxygen Delivery Me thod Room Air Course Vital Signs Vital signs: Initial Vital Signs Temperature 98.0 F 08/25/23 13:59 Temperature Source Temporal Artery Scan 08/25/23 13:59 Pulse Rate 74 08/25/23 13:59 Respiratory Rate 16 08/25/23 13:59 Blood Pressure 105/69 08/25/23 13:59 Blood Pressure Mean 81 08/25/23 13:59 Blood Pressure Position Sitting 08/25/23 13:59 Pulse Oximetry 100 08/25/23 13:59 Oxygen Delivery Method Room Air 08/25/23 13:59 Vital Signs Temperature 98.0 F 08/25/23 13:59 Pulse Rate 74 08/25/23 13:59 Respiratory Rate 16 08/25/23 13:59 Blood Pressure 105/69 08/25/23 13:59 Pulse Oximetry 100 08/25/23 13:59 Oxygen Delivery Method Room Air 08/25/23 13:59 Temperature 98.0 F 08/25/23 13:59 Pulse Rate 74 08/25/23 13:59 Respiratory Rate 16 08/25/23 13:59 Blood Pressure 105/69 08/25/23 13:59 Pulse Oximetry 100 08/25/23 13:59 Oxygen Delivery Method Room Air 08/25/23 13:59 Medical Decision Making MDM Narrative Medical decision making narrative: Patient is a 38-year-old female presenting emergency department for headache, fatigue, nausea. Symptoms started shortly after she took a Percocet this morning for her broken toe. Symptoms have not been resolving so she came to the emergency department. Symptoms do seem like they could be viral related and Percocet could have been a coincidence so we will order a COVID and flu test. For headache will give her Toradol, fluids, Reglan, Benadryl. CBC, CMP, COVID/flu to, lipase all ordered. Chest x-ray also ordered along with an EKG. Patient is feeling better after the medication. CBC, CMP, COVID/flu all were within normal limits. She is not have any urinary symptoms and urinalysis is not necessary. Chest x-ray showed no concerning abnormalities. EKG showed some sinus bradycardia but otherwise normal. I spoke to her she states she has had Percocet several years ago in the past without any abnormalities. She usually states she is has gotten oxycodone. At this time patient has not asked for any pain medications specifically and she has not given me the impression that she has a pain medication seeker. He did have a long talk with her about this in the concern with given her a new prescription for narcotics shortly after she just received 1 yesterday. She states she understands. After finishing conversation is decided I will give her 6 pills of oxycodone. She is agreeable to this plan. Patient will be discharged home Lab Data Labs: Lab Results 08/25/23 08/25/23 Range/Units 14:28 14:30 WBC 9.27 (4.50-11.00) K/uL RBC 4.02 (4.00-5.20) m/uL Hgb 13.2 (12.0-16.0) gm/dL Hct 39.7 (33.0-51.0) % MCV 99 (80-100) fL MCH 33 (26-34) pg MCHC 33 (32-36) gm/dL RDW Coeff of Shira 12.8 (11.5-15.5) % Plt Count 547 H (140-440) K/uL Neut % (Auto) 48.9 (42.0-72.0) % Lymph % (Auto) 39.3 (20-44) % [place] % (Auto) 8.0 (0.0-11.0) % Eos % (Auto) 3.5 (0.0-7.0) % Baso % (Auto) 0.2 (0.0-3.0) % Neut # (Auto) 4.54 (1.7-7.0) K/uL Lymph # (Auto) 3.64 H (0.90-2.90) K/uL [place] # (Auto) 0.70 (0.00-0.90) K/UL Eos # (Auto) 0.32 (0.00-0.50) K/uL Baso # (Auto) 0.02 (0.00-0.30) K/uL Abs Immat Gran (auto) 0.01 (0.00-0.30) K/uL Imm/Tot Granulo (auto) 0.1 % Sodium 137 (135-149) mmol/L Potassium 3.4 L (3.6-5.1) mmol/L Chloride 96 (96-114) mmol/L Carbon Dioxide 28 (20-32) mmol/L Anion Gap 13 (7-15) mEq/L BUN 11 (5-24) mg/dL Creatinine 0.8 (0.5-1.5) mg/dL Estimated Creat Clear 83.14 Estimated GFR 97 ml/min Glucose 76 (60-115) mg/dL Calcium 9.1 (8.4-10.6) mg/dL Total Bilirubin 0.5 (0.1-1.5) mg/dL AST 40 H (12-35) U/L ALT 42 H (4-35) U/L Alkaline Phosphatase 48 (40-150) U/L Total Protein 7.2 (6.0-8.3) g/dL Albumin 4.2 (3.3-5.0) g/dL Lipase 52 (23-300) U/L SARS-CoV-2 (PCR) Negative SARS-CoV-2 (Negative) Influenza Type A (PCR) Negative PCR FLU A (Negative) Influenza Type B (PCR) Negative PCR FLU B (Negative) Imaging Data Chest x-ray: Radiologist's impression: No acute or significant findings. Dictated by Ruben Carrasco MD @ 08/25/2023 3:42:52 PM ECG Data Attestation: I personally reviewed and interpreted this ECG as follows: Prior ECG tracings: not available for review Interpretation: Sinus bradycardia rate 54 beats per minute, normal intervals, normal axis, no ST or T-wave abnormalities. Discharge Plan Discharge Clinical Impression: Headache Qualifiers: Headache type: unspecified Headache chronicity pattern: unspecified pattern Intractability: not intractable Qualified Code(s): R51.9 - Headache, unspecified Patient Disposition: Home, Self-Care Condition: Improved Instructions: Acute Headache (ED) Additional Instructions: If symptoms persist follow-up with your primary care provider. Return to emergency department for new or worsening symptoms. Stop taking the Percocet Prescriptions: New oxycodone 5 mg tablet 5 mg PO Q6H PRN (Reason: pain) Qty: 6 0RF No Action Cannabinoids PO clonazepam 1 mg tablet 0.5 - 1 mg PO BID PRN (Reason: anxiety) Qty: 40 0RF sumatriptan succinate [Imitrex STATdose Pen] 6 mg/0.5 mL pen injector 6 mg subcut Q1-4H PRN (Reason: migraine headache) Qty: 2 5RF Rx Instructions: do not exceed 2 doses in a 24 hour period meloxicam 15 mg tablet 15 mg PO QDAY Qty: 90 1RF valacyclovir 1 gram tablet 1,000 mg PO DAILY Qty: 90 3RF metoprolol succinate 50 mg tablet extended release 24 hr 50 mg PO QDAY Qty: 90 1RF lamotrigine [Lamictal] 100 mg tablet 100 mg PO BID Qty: 60 2RF dextroamphetamine-amphetamine [Adderall XR] 20 mg capsule,extended release 24hr 20 mg PO QAM Qty: 30 0RF Follow Up/Referrals: Calin Arango MD [Primary Care Provider] - Stand Alone Forms: [employer] Info Instructions
== END 2023-08-25 16:26 | disposition home or self-care (01) ==
PROVIDERS: Emergency Provider Student in an Organized Health Care Education/Training Program; PCP Family Medicine
DX: R51.9 Headache, unspecified (principal)
CPT/HCPCS: 36415; 71046; 80053; 81001; 83690; 85025; 87631; 93005; 96374; 96375; 99283; 99284; J1200; J1885; J2765; J7120

== ENCOUNTER 2023-12-02 16:20 | Emergency (ER) | payer BC, SELFPAY ==
[2023-12-02 16:26] VITALS: BP 132/74; PULSE 53; RESP 15; TEMP 36.6; O2SAT 100; BMI 24.0
--- NOTE | 2023-12-02 16:31 | ED.GENADULT ---
HPI - General Adult General Chief complaint: Weakness Stated complaint: flu Time Seen by Provider: 12/02/23 16:22 History of Present Illness HPI narrative: Patient reports testing positive for Influenza A last Monday. She reports continued weakness, muscle burning sensation, headache and anorexia. She did receive Zofran and 500ml NS with EMS. FSG was 103. 38-year-old woman presenting to the emergency department with concern of I think primarily rhabdomyolysis. Reports a history of similar feeling and diagnosis of rhabdomyolysis in the setting of working out and increased stress. Yesterday was so exhausted or just weak she could not even keep her eyes open. Has definitely felt increased stress. She also notes herself to be the single mother of a special needs child. Last week worked out couple of times prior to diagnosis. Otherwise she has been feeling unwell over the last 6 or 7 days with a diagnosis of influenza A. Has been having dry heaves. Historically would equate tendency to nausea or vomiting secondary to anxiety. This is also why she takes extended-release metoprolol. Feels a burning in her muscles. Nausea is improved since Zofran with EMS. Noting that dissolved Zofran tends not to be effective that her nausea comes on so fast. EMS is also initiated IV hydration. She has not noted any hematuria. Related Data Home Medications Medication Instructions Recorded Confirmed Cannabinoids PO 08/05/22 08/10/23 Previous Rx's Medication Instructions Recorded sumatriptan succinate 6 mg/0.5 mL 6 mg (0.5 mL) subcut Q1-4H PRN 11/28/22 subcutaneous pen injector (Imitrex migraine headache #2 mL STATdose Pen) valacyclovir 1 gram tablet 1,000 mg PO DAILY #90 tabs 12/08/22 metoprolol succinate 50 mg 50 mg PO QDAY #90 tabs 04/19/23 tablet,extended release 24 hr oxycodone 5 mg tablet 5 mg PO Q6H PRN pain #6 caps 08/25/23 lamotrigine 100 mg tablet 100 mg PO BID #60 tabs 08/31/23 (Lamictal) meloxicam 15 mg tablet 15 mg PO QDAY #90 tabs 09/13/23 minocycline 100 mg capsule 200 mg (2 x 100 mg) PO QDAY #180 09/13/23 caps clonazepam 1 mg tablet 0.5 - 1 mg (0.5 - 1 x 1 mg) PO BID 10/13/23 PRN anxiety #40 tabs dextroamphetamine-amphetamine ER 20 mg PO QAM #30 caps 10/13/23 20 mg 24hr capsule,extend release (Adderall XR) dextroamphetamine-amphetamine ER 20 mg PO QAM #30 caps 10/13/23 20 mg 24hr capsule,extend release (Adderall XR) dextroamphetamine-amphetamine ER 20 mg PO QAM #30 caps 11/05/23 20 mg 24hr capsule,extend release (Adderall XR) Allergies Allergy/AdvReac Type Severity Reaction Status Date / Time tramadol Allergy Unknown Verified 08/25/23 14:06 Guinea pig epithelium Allergy Unknown Uncoded 08/10/23 11:52 PFSH [facility] Medical History (Updated 12/02/23 @ 18:28 by Calin Gifford MD) Major depression, recurrent ?F33.9 - Major depressive disorder, recurrent, unspecified (ICD-10) Rhabdomyolysis ?M62.82 - Rhabdomyolysis (ICD-10) 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) ?M26.609 - Unspecified temporomandibular joint disorder, unspecified side (ICD-10) Restless legs syndrome ?G25.81 - Restless legs syndrome (ICD-10) Posttraumatic stress disorder (10/05/18) ?F43.10 - Post-traumatic stress disorder, unspecified (ICD-10) Polycystic ovary syndrome ?E28.2 - Polycystic ovarian syndrome (ICD-10) Migraine ?G43.909 - Migraine, unspecified, not intractable, without status migrainosus (ICD-10) Irritable bowel syndrome with diarrhea ?K58.0 - Irritable bowel syndrome with diarrhea (ICD-10) Hyperhidrosis of axilla ?L74.510 - Primary focal hyperhidrosis, axilla (ICD-10) History of insulin resistance ?Z86.39 - Personal history of other endocrine, nutritional and metabolic disease (ICD-10) History of herpes simplex infection ?Z86.19 - Personal history of other infectious and parasitic diseases (ICD-10) Generalized anxiety disorder with panic attacks ?F41.1 - Generalized anxiety disorder (ICD-10) ?F41.0 - Panic disorder [episodic paroxysmal anxiety] (ICD-10) Gastroesophageal reflux disease ?K21.9 - Gastro-esophageal reflux disease without esophagitis (ICD-10) Cervical intraepithelial neoplasia grade 1 ?N87.0 - Mild cervical dysplasia (ICD-10) 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) ?F98.8 - Other specified behavioral and emotional disorders with onset usually occurring in childhood and adolescence (ICD-10) Acute gastric ulcer without hemorrhage or perforation (11/02/18) ?K25.3 - Acute gastric ulcer without hemorrhage or perforation (ICD-10) Surgical History History of tubal ligation ?Z98.51 - Tubal ligation status (ICD-10) Second branchial cleft cyst ?Q18.0 - Sinus, fistula and cyst of branchial cleft (ICD-10) Status post surgical removal of pilonidal cyst ?Z98.890 - Other specified postprocedural states (ICD-10) History of laparoscopy ?Z98.890 - Other specified postprocedural states (ICD-10) Family History Son Autism Social History Narrative: Medical marijuana use, Single, 1 son (Autism), 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, 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, 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 What is your current living situation?: I presently have a place to live Problems where you live: mold In the past 12 months, utilities in danger of being shut off: yes In past 12 months, lack of transportation kept you from medical appts, meetings, work, or getting things needed for daily living: no In the past 12 mos, have been you worried that your food would run out before you had money to buy more?: sometimes true In the past 12 mos, the food you bought just didn't last and you didn't have money to buy more?: sometimes true Smoking Status: Never smoker How often do you have a drink containing alcohol: monthly or less How many standard drinks containing alcohol do you have on a typical day: 1 or 2 AUDIT-C Alcohol total score: 1 Non-prescribed substance use: marijuana (any form) Non-prescribed substance use details: THC Caffeine: Yes How often does anyone, including family, friends and others, physically hurt you: never How often does anyone, including family, friends and others, insult or talk down to you: sometimes How often does anyone, including family, friends and others, threaten you with harm: never How often does anyone, including family, friends and others, scream or curse at you: never Little interest or pleasure in doing things: more than half the days Feeling down, depressed, or hopeless: nearly every day service: No Exam Narrative: Exam Narrative: Tired. Speaking his of quite fatigued. Oropharynx is sticky. Const: Vital Signs, click to edit/add: Vital Signs - 24 hr 12/02/23 16:26 Temperature 97.8 F Pulse Rate [Pulse Oximeter] 53 L Respiratory Rate 15 Blood Pressure [Ri ght Upper Arm] 132/74 Pulse Oximetry 100 Oxygen Delivery Me thod Room Air Course Vital Signs Vital signs: Initial Vital Signs Temperature 97.8 F 12/02/23 16:26 Temperature Source Temporal Artery Scan 12/02/23 16:26 Pulse Rate 53 L 12/02/23 16:26 Respiratory Rate 15 12/02/23 16:26 Blood Pressure 132/74 12/02/23 16:26 Blood Pressure Mean 93 12/02/23 16:26 Pulse Oximetry 100 12/02/23 16:26 Oxygen Delivery Method Room Air 12/02/23 16:26 Vital Signs Temperature 97.8 F 12/02/23 16:26 Pulse Rate 53 L 12/02/23 16:26 Respiratory Rate 15 12/02/23 16:26 Blood Pressure 132/74 12/02/23 16:26 Pulse Oximetry 100 12/02/23 16:26 Oxygen Delivery Method Room Air 12/02/23 16:26 Temperature 97.8 F 12/02/23 16:26 Pulse Rate 53 L 12/02/23 16:26 Respiratory Rate 15 12/02/23 16:26 Blood Pressure 132/74 12/02/23 16:26 Pulse Oximetry 100 12/02/23 16:26 Oxygen Delivery Method Room Air 12/02/23 16:26 Medications Administered Medications: Discontinued Medications Generic Name Dose Route Start Last Admin Trade Name Freq PRN Reason Stop Dose Admin Sodium Chloride 1,000 mls @ 1,000 mls/hr 12/02/23 16:45 12/02/23 18:05 0.9 % Sodium Chloride 1000 Ml IV 12/02/23 17:44 Infused .Q1H ONE Infusion Medical Decision Making MDM Narrative Medical decision making narrative: Noted to be a little bradycardic here today relative to usual. Indeed atypical for dehydration however does take metoprolol with what is thought to be anxiety related persistent tachycardia. She has continued to take this medication not missing doses. Review of records shows that in the past has been in the low 50s though generally in the mid upper 70s. EKG done today reviewed by me shows a sinus bradycardia otherwise unremarkable. Rate of 52. We can certainly evaluate for rhabdomyolysis. I do not see any reason for this to be present. I do think though that would benefit from hydration. IV is established. Given L normal saline. Labs are reassuring with serum and urine absent of evidence for rhabdo On reassessment appears to have a better energy; reportedly feeling better. She appears reassured as well. See patient discharge plan Lab Data Lab results reviewed: Yes I reviewed the patient's lab results Labs: Lab Results 12/02/23 12/02/23 Range/Units 16:56 17:00 WBC 5.14 (4.50-11.00) K/uL RBC 4.38 (4.00-5.20) m/uL Hgb 14.0 (12.0-16.0) gm/dL Hct 41.0 (33.0-51.0) % MCV 94 (80-100) fL MCH 32 (26-34) pg MCHC 34 (32-36) gm/dL RDW Coeff of Shira 12.9 (11.5-15.5) % Plt Count 361 (140-440) K/uL Neut % (Auto) 36.1 L (42.0-72.0) % Lymph % (Auto) 55.1 H (20-44) % [place] % (Auto) 6.6 (0.0-11.0) % Eos % (Auto) 1.6 (0.0-7.0) % Baso % (Auto) 0.0 (0.0-3.0) % Neut # (Auto) 1.90 (1.7-7.0) K/uL Lymph # (Auto) 2.80 (0.90-2.90) K/uL [place] # (Auto) 0.30 (0.00-0.90) K/UL Eos # (Auto) 0.08 (0.00-0.50) K/uL Baso # (Auto) 0.00 (0.00-0.30) K/uL Abs Immat Gran (auto) 0.03 (0.00-0.30) K/uL Imm/Tot Granulo (auto) 0.6 % Sodium 137 (135-149) mmol/L Potassium 4.2 (3.6-5.1) mmol/L Chloride 106 (96-114) mmol/L Carbon Dioxide 26 (20-32) mmol/L Anion Gap 5 L (7-15) mEq/L BUN 18 (5-24) mg/dL Creatinine 0.8 (0.5-1.5) mg/dL Estimated Creat Clear 83.14 Estimated GFR 97 ml/min Glucose 88 (60-115) mg/dL Calcium 8.9 (8.4-10.6) mg/dL Total Creatine Kinase 79 (41-117) U/L C-Reactive Protein 0.5 (0.5-1.0) mg/dL Urine Color Yellow (Yellow) Urine Appearance Clear (Clear) Urine pH 7.5 (5.0-8.5) Ur Specific Burden 1.015 (1.000-1.030) Urine Protein Negative (Negative) Urine Glucose (UA) Negative (Negative) Urine Ketones Negative (Negative) Urine Blood Negative (Negative) Urine Nitrite Negative (Negative) Urine Bilirubin Negative (Negative) Urine Urobilinogen 0.2 (0.2-1.0) Ur Leukocyte Esterase Negative (Negative) Urine RBC 0-2 (0-2) Urine WBC 0-2 (0-5) Ur Squamous Epith Cells Few (None-Few) Urine Bacteria None (None) Discharge Plan Discharge Clinical Impression: Malaise, Bradycardia, Dehydration Patient Disposition: Home, Self-Care Condition: Improved Instructions: Fatigue (ED) Additional Instructions: Focus on hydration. See how things go over this next week. May want to, given your desire to work out regularly, review metoprolol dosing with primary care provider/prescriber. You do not show any evidence of rhabdomyolysis here today. Prescriptions: No Action Cannabinoids PO sumatriptan succinate [Imitrex STATdose Pen] 6 mg/0.5 mL pen injector 6 mg subcut Q1-4H PRN (Reason: migraine headache) Qty: 2 5RF Rx Instructions: do not exceed 2 doses in a 24 hour period oxycodone 5 mg tablet 5 mg PO Q6H PRN (Reason: pain) Qty: 6 0RF valacyclovir 1 gram tablet 1,000 mg PO DAILY Qty: 90 3RF metoprolol succinate 50 mg tablet extended release 24 hr 50 mg PO QDAY Qty: 90 1RF lamotrigine [Lamictal] 100 mg tablet 100 mg PO BID Qty: 60 2RF meloxicam 15 mg tablet 15 mg PO QDAY Qty: 90 3RF minocycline 100 mg capsule 200 mg PO QDAY Qty: 180 1RF clonazepam 1 mg tablet 0.5 - 1 mg PO BID PRN (Reason: anxiety) Qty: 40 1RF dextroamphetamine-amphetamine [Adderall XR] 20 mg capsule,extended release 24hr 20 mg PO QAM Qty: 30 0RF dextroamphetamine-amphetamine [Adderall XR] 20 mg capsule,extended release 24hr 20 mg PO QAM Qty: 30 0RF dextroamphetamine-amphetamine [Adderall XR] 20 mg capsule,extended release 24hr 20 mg PO QAM Qty: 30 0RF Follow Up/Referrals: Calin Arango MD [Primary Care Provider] - Stand Alone Forms: [facility] Info Instructions
[2023-12-02] MEDS: 0.9 % SODIUM CHLORIDE 1000 ml 1,000 ML IV (17:00)
[2023-12-02 17:03] LABS: Appearance Urine Clear (Clear); Bilirubin Urine Negative (Negative); Blood Urine Negative (Negative); Color Urine Yellow (Yellow); Glucose Urine Negative (Negative); Ketones Urine Negative (Negative); Leukocyte Esterase Urine Negative (Negative); Nitrite Urine Negative (Negative); Protein Urine Negative (Negative); Specific Gravity Urine 1.015 (1.000-1.030); Urobilinogen Urine 0.2 (0.2-1.0); pH Urine 7.5 (5.0-8.5)
[2023-12-02 17:08] LABS: Eosinophils Absolute Auto 0.08 K/uL (0.00-0.50); Eosinophils Percent Auto 1.6 % (0.0-7.0); Immature Granulocytes Abs Auto 0.03 K/uL (0.00-0.30); Immature Granulocytes Pct Auto 0.6 %; Lymphocytes Percent Auto 55.1 % (20-44); Mean Corpuscular HGB Conc 34 gm/dL (32-36); Mean Corpuscular Hemoglobin 32 pg (26-34); Mean Corpuscular Volume 94 fL (80-100); Monocytes Percent Auto 6.6 % (0.0-11.0); Neutrophils Percent Auto 36.1 % (42.0-72.0); Platelet Count* 361 K/uL (140-440); RDW Coefficient of Variation % 12.9 % (11.5-15.5); Red Blood Count 4.38 m/uL (4.00-5.20); White Blood Count* 5.14 K/uL (4.50-11.00)
[2023-12-02 17:13] LABS: RBC Urine 0-2 (0-2); Squamous Epithelial Cell Urine Few (None-Few); WBC Urine 0-2 (0-5)
[2023-12-02 17:14] LABS: Slide Review Reflex No
--- OUTSIDE RECORDS SUMMARY | 2023-12-02 17:16 | XMS_ITS | Clinical Summary ---
Author Name Unknown Organization [facility] [employer] [facility] [employer] [facility] Address [place], [place] [address] Care Team Providers Care Powder Operator Name Role Phone Calin Arango MD Primary Care Provider + Allergies Active Allergy Reactions Criticality Noted Date Comments Nsaids (Non-Steroidal Anti-I nflammatory Drug) GI Upset 12/26/2020 Tramadol Hives 07/16/2009 Medications Medication Sig Dispensed Refills Start Date End Date Status SUMAtriptan (IMITREX) 6 mg/0.5 mL crtgIndications:Mi graine syndrome Inject 6 mg subcutaneous 2 times daily if needed for Migraine. Give at minimum 2hrs apart. Max Dose: 12 mg in 24 hours. 1 Kit 1 08/15/2019 Active valACYclovir (VALTREX) 500 mg tablet Take 1,000 mg by mouth once daily. 0 Active clonazePAM (KLONOPIN) 1 mg tablet TAKE 1/2 TO 1 TABLET BY MOUTH TWICE DAILY NEEDED FOR ANXIETY 0 07/13/2022 Active metoprolol succinate (TOPROL XL) 50 mg sustained-release tablet Take 50 mg by mouth once daily. 0 07/11/2022 Active metFORMIN (GLUCOPHAGE XR) 750 mg Extended-Release tablet Take 1,500 mg by mouth once daily. 0 11/09/2022 Active prochlorperazine (COMPAZINE) 10 mg tablet Take 10 mg by mouth 3 times daily if needed for Nausea/Vomiting. 0 Active methylPREDNISolone (MEDROL DOSEPAK) 4 mg tabletIndications: Chronic bilateral low back pain, unspecified whether sciatica present Take by mouth as instructed per packaging. 21 Tablet 0 03/02/2023 Active lidocaine 5 % topical patchIndications:C hronic bilateral low back pain, unspecified whether sciatica present Apply to intact skin to cover most painful area for max 12hr per 24hr period. 30 Patch 0 03/02/2023 Active gabapentin (NEURONTIN) 300 mg capsuleIndications :Chronic bilateral low back pain, unspecified whether sciatica present Take 1 Capsule (300 mg) by mouth at bedtime. 7 Capsule 0 03/02/2023 Active lidocaine 5 % topical patchIndications:S ciatica, unspecified laterality Apply to intact skin to cover most painful area for max 12hr per 24hr period. 14 Patch 0 08/16/2023 Active HYDROcodone-acetam inophen (5-325 mg/tablet)Indicati ons:Sciatica, unspecified laterality Take 1 Tablet by mouth every 4 hours if needed for Pain. Max acetaminophen dose: 4000 mg in 24 hrs. 10 Tablet 0 08/16/2023 Active crutchIndications: Closed displaced fracture of distal phalanx of right great toe, initial encounter For home use. 2 Each 0 08/24/2023 Active lamoTRIgine (LAMICTAL) 100 mg tablet Take 100 mg by mouth two times daily. 0 11/09/2023 Active meloxicam 15 mg tablet Take 15 mg by mouth once daily. 0 11/08/2023 Active dextroamphetamine- amphetamine (ADDERALL XR) 20 mg Extended-Release capsule Take 20 mg by mouth every morning. 0 11/06/2023 Active benzonatate (TESSALON) 200 mg capsuleIndications :Acute cough Take 1 Capsule (200 mg) by mouth 3 times daily if needed for Cough. 21 Capsule 0 11/26/2023 Active albuterol HFA (PRO-AIR; VENTOLIN; PROVENTIL) 90 mcg/actuation inhalerIndications :Acute cough,SOB (shortness of breath) Inhale 2 Puffs by mouth every 4 hours if needed for Shortness Of Breath. 18 g 0 11/26/2023 Active Hospital, Clinic, or Other Facility Administered Medication Ordered Dose Route Frequency Start Date End Date Status albuterol 0.083% (2.5 mg/3 mL) neb solution 2.5 mgIndications:Acute cough,SOB (shortness of breath) 2.5 mg NEB ONE TIME 11/26/2023 11/26/2023 Ended Active Problems Problem Noted Date Diagnosed Date Non-traumatic rhabdomyolysis 11/14/2022 YAAKOV (acute kidney injury) 11/14/2022 Neck abscess 08/19/2022 Branchial cleft cyst 08/19/2022 Severe recurrent major depre ssion without psychotic features 08/06/2022 Generalized anxiety disorder 08/06/2022 Esophagitis, reflux 05/28/2019 Acute gastric ulcer without hemorrhage or perfor ation 11/02/2018 PTSD (post-traumatic stress disorder) 10/05/2018 Attention deficit disorder (ADD) without hyperac tivity 03/21/2018 Panic attacks 03/21/2018 Pap smear of cervix with ASCUS, cannot exclude H GSIL 11/23/2015 Overview: 11/2015 ASCH 12/2015 [place]: BERRY 1 12/2016 NIL / HPV negative 01/2018 NIL/HPV negative Plan: Pap/HPV due 01/2021 PCOS (polycystic ovarian syndrome) 07/30/2014 Oligomenorrhea 07/30/2014 Right lower quadrant pain 07/30/2014 Anxiety 06/30/2014 Overview: Not on meds Depression 06/30/2014 Establishing care with new doctor, encounter for 06/30/2014 Infertility 06/30/2014 Insomnia 06/30/2014 Migraine 06/30/2014 Nausea 06/30/2014 Nicotine use disorder 06/30/2014 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 Overview: [facility] Agoraphobia with panic disorder 05/02/2013 Adjustment disorder with mixed anxiety and depre ssed mood 05/02/2013 Generalized anxiety disorder 01/15/2013 IBS (irritable bowel syndrome) Pilonidal cyst without abscess Diarrhea Resolved Problems Problem Noted Date Diagnosed Date Resolved Date Controlled substance agreement signed 04/18/2018 10/05/2018 Overview: Signed 04/18/18 Dr Cadnis [place] [facility] Post-trauma response 03/21/2018 018 Bilateral kidney stones 10/12/201509/22 ADD (attention deficit disorder) 06/18/2011 10/05/2018 Allergic rhinitis 06/18/2011 10/05/2018 Issue of repeat prescriptions 05/25/2011 10/05/2018 Overview: IBS - taking Percocet and Ansaid Encounters Date Type Department Care Team Description 11/27/2023 4:30 PM VIDEOGAME DESIGNER Telemedicine [address] [phone] Calin Alvarenga PsyD, LP Telehealth; Individual Therapy 11/27/2023 Travel 11/26/2023 2:55 PM VIDEOGAME DESIGNER Ancillary Procedure [address] [phone] 11/26/2023 12:55 PM VIDEOGAME DESIGNER Office Visit [facility] [address] [place] [phone] Sowmya Rasmussen NP Person Under Investigation (PUI) (Body aches, fatigue, cough, tightness in chest, sore throat x 2 days) 11/26/2023 Travel 11/23/[address] [phone] Calin Alvarenga PsyD, LP Appointment Request (Emergency appointment ) 11/15/2023 5:30 PM VIDEOGAME DESIGNER Office Visit [address] [phone] Calin Alvarenga PsyD, LP Individual Therapy 11/15/2023 Travel 11/01/[address] [phone] Calin Alvarenga PsyD, LP Appointment (Pt looking for appt with Provider in October or early November 2023) 10/25/2023 4:30 PM VIDEOGAME DESIGNER Office Visit [address] [address] Calin Alvarenga PsyD, LP Individual Therapy 10/25/2023 Travel 10/18/2023 4:30 PM VIDEOGAME DESIGNER Office Visit [address] [place] [address] Calin Alvarenga PsyD, HALIE Individual Therapy 10/18/2023 Travel 10/11/2023 4:30 PM VIDEOGAME DESIGNER Office Visit [address] [place] [address] Calin Alvarenga PsyD, HALIE Individual Therapy 10/11/2023 Travel 10/04/2023 4:30 PM VIDEOGAME DESIGNER Office Visit [address] [place] [address] Calin Alvarenga PsyD, HALIE [facility] 10/04/2023 Travel 09/27/2023 4:30 PM VIDEOGAME DESIGNER Office Visit [address] [place] [address] Calin Alvarenga PsyD, HALIE Individual Therapy 09/27/2023 Travel 09/20/2023 4:30 PM VIDEOGAME DESIGNER Office Visit [address] [place] [address] Calin Alvarenga PsyD, HALIE Individual Therapy 09/20/2023 Travel 09/13/2023 4:30 PM VIDEOGAME DESIGNER Office Visit [address] [place] [address] Calin Alvarenga PsyD, HALIE Individual Therapy 09/13/2023 Travel 09/06/2023 4:30 PM VIDEOGAME DESIGNER Office Visit [address] [place] [address] Calin Alvarenga PsyD, HALIE Individual Therapy 09/06/2023 Travel from Last 3 Months Immunizations Name Administration Dates Next Due DT (Age < 7 years) 01/14/2010 Influenza, IIV3 (Age >=3 years) 08/30/2013,09/03 Influenza, IIV4 07/21/2017,07/27/2016 Tdap 05/03/2011 Family History Medical History Relation Name Comments Heart Disease Father Cancer Maternal Grandmother Lung Cancer-colon Maternal Grandmother Diabetes Mother Cancer-breast Paternal Aunt Good Health Sister 1 Anxiety disorder Sister 2 Good Health Sister 2 Relation Name Status Comments Father Alive Maternal Grandmother Mother Alive Paternal Aunt Sister 1 Alive Sister 2 Alive Social History Tobacco Use Types Packs/Day Years Used Date Smoking Tobacco: Every Day Cigarettes Smokeless Tobacco: Never Tobacco Cessation:Ready to Q uit: No; Counseling Given: Yes Alcohol Use Standard Drinks/Week Comments Not Currently 0 (1 standard drink = 0.6 oz pur e alcohol) PHQ-2 Answer Date Recorded PHQ-2 TOTAL SCORE 6 11/21/2023 Social Connections Answer Date Recorded Frequency of Communication with Friends and Fami ly Not on file 01/30/2023 Sex and Gender Information Value Date Recorded Sex Assigned at Not on file Gender Identity Not on file Sexual Orientation Not on file Obstetrics History Para Term AB IAB SAB Ectopic Multiple Livin g Live Births 1 1 1 1 Date Outcome GA Total Labor Labor/2nd/3rd Weight Sex Delivery Anes PTL Rosario A1 A5 Name Cl in Term Last Filed Vital Signs Vital Sign Reading Time Taken Comments Blood Pressure 107/56 11/26/2023 1:59 PM VIDEOGAME DESIGNER Pulse 67 11/26/2023 3:36 PM VIDEOGAME DESIGNER Temperature 37.5 ??C (99.5 ??F) 11/26/2023 1:59 PM CS T Respiratory Rate 18 11/26/2023 3:36 PM VIDEOGAME DESIGNER Oxygen Saturation 99% 11/26/2023 3:36 PM VIDEOGAME DESIGNER Inhaled Oxygen Concentration - - Weight 68.8 kg (151 lb 11.2 oz) 11/26/2023 1:59 PM VIDEOGAME DESIGNER Height 162.6 cm (5' 4) 08/24/2023 1:47 PM CDT Body Mass Index 26.04 08/24/2023 1:47 PM CDT Plan of Treatment Upcoming Encounters Date Type Department Care Team (Late st Contact Info) Description 12/25/2023 3:30 PM VIDEOGAME DESIGNER Telemedicine [facility] [address] [place] [address] Calin Alvarenga, PsyD, LP [address] [place] [address] 01/08/2024 3:30 PM CDT Telemedicine [address] [place] [address] Calin Alvarenga, Ruth Ann, LP [address] [facility] [place] [address] 01/22/2024 3:30 PM CDT Telemedicine [facility] [address] [facility] [place] [address] Calin Alvarenga PsyD, LP [address] [facility] [place] [address] 02/05/2024 3:30 PM CDT Telemedicine [facility] [address] [facility] [place] [address] Calin Alvarenga, Ruth Ann, LP [address] [facility] [place] [address] Health Maintenance Due Date Last Done Comments COVID-19 vaccine series (#1) 1986 Hepatitis C screening for age 18-79 01/13/2004 BMI (ht and wt on same day) for age 18+ 06/07/2020 06/07/2019, 05/17/2019, 05/14/2019, Additional history exists Tetanus booster 05/03/2021 05/03/2011 Pap test for age 21-65 05/02/2022 9, 05/02/2019, 02/02/2018, Additional history exists Influenza for age 9-49 06/23/2023 7, 07/27/2016, 08/30/2013, Additional history exists Depression screening for age 12+ 11/27/2024 11/27/2023, 11/23/2023, 11/15/2023, Additional history exists Tdap Completed 05/03/2011 HIV for age 15-65 Completed 01/30/2018 Pneumococcal series for age 6-64 Aged Out No longer eligible based on patient's age to complete this topic Procedures Procedure Name Priority Date/Time Associated Diagnosis Comments XR CHEST 2 VIEWS PA AND LATERAL STAT 11/26/2023 2:55 PM VIDEOGAME DESIGNER Acute cough SOB (shortness of breath) INFLUENZA A/B PCR Routine 11/26/2023 2:0 2 PM VIDEOGAME DESIGNER Sore throat COVID-19 MOLECULAR Routine 11/26/2023 2: 02 PM VIDEOGAME DESIGNER Sore throat STREP A PCR STAT 11/26/2023 2:02 PM VIDEOGAME DESIGNER Sore throat THROAT RAPID STREP A WITH REFLEX STAT 11/26/2023 2:02 PM VIDEOGAME DESIGNER Sore throat from Last 3 Months Results * XR CHEST 2 VIEWS PA AND LATERAL (11/26/2023 2:55 PM VIDEOGAME DESIGNER) Anatomical Region Laterality Modality CHEST, THORAX, Lung, HEART Compu matt Radiography 11/26/2023 3:45 PM VIDEOGAME DESIGNER Impressions 11/26/2023 3:45 PM VIDEOGAME DESIGNER Negative chest. Dictated by Abbi Welch MD @ 11/26/2023 3:45:38 PM (Electronically Signed) Narrative 11/26/2023 3:45 PM VIDEOGAME DESIGNER For Patients: ??As a result of the Cures Act, medical imaging exams and procedure reports are released immediately into your electronic medical record. ??You may view this report before your referring provider. ??If you have questions, please contact your health care provider. INDICATION: Cough TECHNIQUE: Two view chest. FINDINGS: The lungs are clear. The heart, mediastinum and pulmonary vessels are of normal size. There is no evidence of pleural disease. Procedure Note Abbi Welch MD - 11/26/2023 For Patients: As a result of the Cures Act, medical imagingexams and procedure reports are released immediately into your electronicmedical record. You may view this report before your referring provider.If you have questions, please contact your health care provider. INDICATION: Cough TECHNIQUE: Two view chest. FINDINGS: The lungs are clear. The heart, mediastinum and pulmonary vessels are ofnormal size. There is no evidence of pleural disease. IMPRESSION: Negative chest. Dictated by Abbi Welch MD @ 11/26/2023 3:45:38 PM (Electronically Signed) Sowmya Rasmussen NP GENERAL IMAGING * COVID-19 MOLECULAR (11/26/2023 2:02 PM VIDEOGAME DESIGNER) COVID 19 [facility] MOLECULAR Negative Negative 11/27/2023 6:44 PM VIDEOGAME DESIGNER [facility]- NTRAL LABORATORY TESTING LABORATORY [facility] Laboratory 11/27/2023 6:44 PM VIDEOGAME DESIGNER [facility] Comment:Specimen submitted t o [facility] for testing. Other SPECIMEN FROM NASAL FOSSAE / Unknown Non-Blood / Unknown 11/26/2023 2:02 PM VIDEOGAME DESIGNER 11/26/2023 2:29 PM VIDEOGAME DESIGNER Narrative [facility] - 11/27/2023 6:44 PM VIDEOGAME DESIGNER All PCR tests are subject to false negative result due to variability in viral load and collection technique. A negative result does not rule out a SARS-CoV-2 infection. Clinical correlation required. This test has been authorized by FDA under an Emergency Use Authorization (EUA). This test is only authorized for the duration of time the declaration that circumstances exist justifying the authorization of the emergency use of in vitro diagnostic tests for detection of SARS-CoV-2 virus and/or diagnosis of COVID-19 infection under section 564(b)(1) of the Act, 21 U.S.C. 360bbb-3(b) (1), unless the authorization is terminated or revoked sooner. Sowmya Rasmussen NP MICROBIOLOGY [facility] [address] [place] [address], * STREP A PCR (11/26/2023 2:02 PM VIDEOGAME DESIGNER) GROUP A STREP Negative 11/27/2023 2:35 PM VIDEOGAME DESIGNER [facility] TRAL LABORATORY Throat SPECIMEN FROM THROAT / Unknown Non-Blood / Unknown 11/26/2023 2:02 PM VIDEOGAME DESIGNER 11/26/2023 2:28 PM VIDEOGAME DESIGNER Sowmya Rasmussen NP [facility] [address] [place] [address], * (ABNORMAL) INFLUENZA A/B PCR (11/26/2023 2:02 PM VIDEOGAME DESIGNER) INFLUENZA A PCR Positive(A) 11/27/2023 6:44 PM VIDEOGAME DESIGNER [facility] INFLUENZA B PCR Negative 11/27/2023 6:44 PM VIDEOGAME DESIGNER [facility] Other SPECIMEN FROM NASAL FOSSAE / Unknown Non-Blood / Unknown 11/26/2023 2:02 PM VIDEOGAME DESIGNER 11/26/2023 2:29 PM VIDEOGAME DESIGNER Sowmya Rasmussen NP MICROBIOLOGY Performing Organization Address [facility]/ZIP Co de Phone Number [facility] [address] [place] [address], * THROAT RAPID STREP A WITH REFLEX [55615.1] - age 0 through 17 yrs (11/26/2023 2:02 PM VIDEOGAME DESIGNER) STREP A ANTIGEN Negative 11/26/2023 2:28 PM VIDEOGAME DESIGNER [facility] Comment:PCR to follow. Throat SPECIMEN FROM THROAT / Unknown Non-Blood / Unknown 11/26/2023 2:02 PM VIDEOGAME DESIGNER 11/26/2023 2:07 PM VIDEOGAME DESIGNER Sowmya Rasmussen NP MICROBIOLOGY [facility] [address] [place] [address] from Last 3 Months Additional Health Concerns Infection Onset Date Last Indicated INFLUENZA 11/26/2023 11/26/2023 Advance Directives Latest Code Status on File Code Status Date Activated Date Inactivated Comments Full Code 11/14/2022 2:17 PM 11/15/2022 2:50 PM Question Answer Comments Code Status Discussion: Reviewed Preferences Code Status History Code Status Date Activated Date Inactivated Comments Full Code 08/19/2022 8:12 PM 08/22/2022 2:18 PM Question Answer Comments Code Status Discussion: Reviewed Preferences Full Code 05/21/2019 1:35 PM 05/21/2019 6:37 PM Question Answer Comments Code Status Discussion: Discussed Full Code 10/12/2018 1:05 PM 10/12/2018 5:12 PM Question Answer Comments Code Status Discussion: Discussed Full Code 04/18/2017 2:03 PM 04/18/2017 7:30 PM Care Teams Powder Operator Relationship Specialty Start Date End Date Calin Arango MD [address] [place] [id number] PCP - General Family Practice 07/10/20
[2023-12-02 17:19] LABS: Chloride* 106 mmol/L (96-114); Sodium* 137 mmol/L (135-149)
[2023-12-02 17:21] LABS: Creatinine* 0.8 mg/dL (0.5-1.5); Est. Creatinine Clearance* 83.14; Estimated Glomerular Filt Rate 97 ml/min; Potassium* 4.2 mmol/L (3.6-5.1)
[2023-12-02 17:22] LABS: Anion Gap 5 mEq/L (7-15); Blood Urea Nitrogen* 18 mg/dL (5-24); Carbon Dioxide* 26 mmol/L (20-32); Creatine Kinase* 79 U/L (41-117); Glucose* 88 mg/dL (60-115)
[2023-12-02 17:23] LABS: Calcium* 8.9 mg/dL (8.4-10.6)
[2023-12-02 17:25] LABS: C Reactive Protein* 0.5 mg/dL (0.5-1.0)
== END 2023-12-02 18:44 | disposition home or self-care (01) ==
PROVIDERS: Emergency Provider Family Medicine; PCP Family Medicine
DX: R53.81 Other malaise (principal); E86.0 Dehydration; R00.1 Bradycardia, unspecified
CPT/HCPCS: 36415; 80048; 81001; 82550; 85025; 86140; 93005; 96360; 99284; J7030

== ENCOUNTER 2023-12-13 11:10 | Emergency (ER) | payer BC, SELFPAY ==
[2023-12-13] VITALS (18 sets, daily range): BP systolic 103–129; BP diastolic 53–78; PULSE 60–82; RESP 20; TEMP 36.8; O2SAT 97–100; BMI 25.4
--- NOTE | 2023-12-13 11:45 | ED_ITS ---
HPI - Weakness General Time Seen by Provider: 11:46 Date Seen: 12/13/23 Chief complaint: Weakness Stated complaint: Dizzy, fluctuating heartrate, vomiting Time Seen by Provider: 12/13/23 11:45 Source: patient Mode of arrival: ambulatory Limitations: no limitations History of Present Illness HPI Narrative: Patient is a very pleasant 38-year-old female with history of depression, rhabdomyolysis secondary to metformin use, recent influenza infection who comes to the emergency room with fatigue. Patient describes profound fatigue ongoing in association with a sore throat that developed a couple of days ago. Patient notes continued nasal drainage since the flu but this is minimal and clear. She has however had continued occasional cough with greenish brown production. She is a smoker. Today she also has a headache and an episode of vomiting this morning. She states that she has shortness breath with any sort of movement including talking. Two weeks ago patient was diagnosed with influenza A. She states the body aches were quite severe but she only had a mild upper respiratory symptoms. Her cough is actually been improving since that time. Over the past few days however she has had worsening energy levels. She quit working out thinking that that may help. She notes that the fatigue actually occurred prior to the influenza and she was seen here because she was worried that she may have had rhabdo my lysis again. She was seen in the ER and this was not the case. She does acknowledge increased stressors at work and she is a single mother of a special needs child. She has no history of thyroid issues. She does have a history of PCOS. She does have medical cannabis but has use that only minimally. Alcohol use is rare. She is not sexually active and denies any possibility of pregnancies as she had bilateral to removal. Related Data Home Medications Medication Instructions Recorded Confirmed Cannabinoids PO 08/05/22 12/11/23 Previous Rx's Medication Instructions Recorded sumatriptan succinate 6 mg/0.5 mL 6 mg (0.5 mL) subcut Q1-4H PRN 11/28/22 subcutaneous pen injector (Imitrex migraine headache #2 mL STATdose Pen) meloxicam 15 mg tablet 15 mg PO QDAY #90 tabs 09/13/23 minocycline 100 mg capsule 200 mg (2 x 100 mg) PO QDAY #180 09/13/23 caps clonazepam 1 mg tablet 0.5 - 1 mg (0.5 - 1 x 1 mg) PO BID 10/13/23 PRN anxiety #40 tabs dextroamphetamine-amphetamine ER 25 mg PO QAM #30 caps 12/11/23 25 mg 24hr capsule,extend release (Adderall XR) dextroamphetamine-amphetamine ER 25 mg PO QAM #30 caps 12/11/23 25 mg 24hr capsule,extend release (Adderall XR) escitalopram oxalate 10 mg tablet 10 mg PO QDAY #30 tabs 12/11/23 (Lexapro) lamotrigine 100 mg tablet 100 mg PO BID #180 tabs 12/11/23 (Lamictal) valacyclovir 1 gram tablet 1,000 mg PO DAILY #90 tabs 12/11/23 Allergies Allergy/AdvReac Type Severity Reaction Status Date / Time tramadol Allergy Unknown Verified 08/25/23 14:06 Guinea pig epithelium Allergy Unknown Uncoded 08/10/23 11:52 Review of Systems Status of ROS: Reports: 10 or more systems reviewed and unremarkable except as noted in History and below Const: Reports: fatigue and malaise; Denies: fever or chills Eyes: Denies: change in vision ENMT: Reports: throat pain and nasal discharge; Denies: neck pain, throat swelling, difficulty swallowing, ear pain, ear discharge or nasal congestion Cardio: Reports: shortness of breath with exertion; Denies: chest pain or swelling of feet/ankles Resp: Reports: shortness of breath and cough; Denies: wheezing GI: Reports: nausea and vomiting; Denies: abdominal pain, diarrhea or difficulty swallowing : Denies: painful urination Musculo: Denies: neck pain Integ/Breast: Denies: rash Neuro: Reports: headache; Denies: numbness in extremities Endo: Reports: fatigue Allergy/Immuno: Denies: throat swelling or wheezing PFSH PFS Medical History Major depression, recurrent ?F33.9 - Major depressive disorder, recurrent, unspecified (ICD-10) Rhabdomyolysis ?M62.82 - Rhabdomyolysis (ICD-10) 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) ?M26.609 - Unspecified temporomandibular joint disorder, unspecified side (ICD-10) Restless legs syndrome ?G25.81 - Restless legs syndrome (ICD-10) Posttraumatic stress disorder (10/05/18) ?F43.10 - Post-traumatic stress disorder, unspecified (ICD-10) Polycystic ovary syndrome ?E28.2 - Polycystic ovarian syndrome (ICD-10) Migraine ?G43.909 - Migraine, unspecified, not intractable, without status migrainosus (ICD-10) Irritable bowel syndrome with diarrhea ?K58.0 - Irritable bowel syndrome with diarrhea (ICD-10) Hyperhidrosis of axilla ?L74.510 - Primary focal hyperhidrosis, axilla (ICD-10) History of insulin resistance ?Z86.39 - Personal history of other endocrine, nutritional and metabolic disease (ICD-10) History of herpes simplex infection ?Z86.19 - Personal history of other infectious and parasitic diseases (ICD- 10) Generalized anxiety disorder with panic attacks ?F41.1 - Generalized anxiety disorder (ICD-10) ?F41.0 - Panic disorder [episodic paroxysmal anxiety] (ICD-10) Gastroesophageal reflux disease ?K21.9 - Gastro-esophageal reflux disease without esophagitis (ICD-10) Cervical intraepithelial neoplasia grade 1 ?N87.0 - Mild cervical dysplasia (ICD-10) 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) ?F98.8 - Other specified behavioral and emotional disorders with onset usually occurring in childhood and adolescence (ICD-10) Acute gastric ulcer without hemorrhage or perforation (11/02/18) ?K25.3 - Acute gastric ulcer without hemorrhage or perforation (ICD-10) Surgical History History of tubal ligation ?Z98.51 - Tubal ligation status (ICD-10) Second branchial cleft cyst ?Q18.0 - Sinus, fistula and cyst of branchial cleft (ICD-10) Status post surgical removal of pilonidal cyst ?Z98.890 - Other specified postprocedural states (ICD-10) History of laparoscopy ?Z98.890 - Other specified postprocedural states (ICD-10) Family History Son Autism Social History Narrative: Medical marijuana use, Single, 1 son (Autism), [employer] for mother, THC, social EtOH What is your current living situation?: I presently have a place to live Problems where you live: mold In the past 12 months, utilities in danger of being shut off: yes In past 12 months, lack of transportation kept you from medical appts, meetings, work, or getting things needed for daily living: no In the past 12 mos, have been you worried that your food would run out before you had money to buy more?: sometimes true In the past 12 mos, the food you bought just didn't last and you didn't have money to buy more?: sometimes true Smoking Status: Never smoker How often do you have a drink containing alcohol: monthly or less How many standard drinks containing alcohol do you have on a typical day: 1 or 2 AUDIT-C Alcohol total score: 1 Non-prescribed substance use: marijuana (any form) Non-prescribed substance use details: THC Caffeine: Yes How often does anyone, including family, friends and others, physically hurt you : never How often does anyone, including family, friends and others, insult or talk down to you: sometimes How often does anyone, including family, friends and others, threaten you with harm: never How often does anyone, including family, friends and others, scream or curse at you: never Little interest or pleasure in doing things: more than half the days Feeling down, depressed, or hopeless: nearly every day service: No Exam Narrative: Exam Narrative: Patient is awake and oriented. She is lying on the cot in room 2. She seems very fatigued. However, GCS of 15 and she is answering questions appropriately. EOM is full with pupils equal round reactive. TMs without erythema or fluid. Neck is supple without lymphadenopathy. Oral cavity without erythema, exudate. Neck is supple. No hesitation with neck movement or meningeal signs. Heart with regular rate and rhythm and lungs are clear in all lung [place]. Abdomen soft nontender. Lower extremities without edema. Upper and lower extremity strength intact. Const: Vital Signs, click to edit/add: Vital Signs - 24 hr 12/13/23 11:34 12/13/23 12:11 12/13/23 12:15 Temperature 98.2 F Pulse Rate 63 68 Pulse Rate [Pulse Oximeter] 66 Respiratory Rate 20 Blood Pressure Blood Pressure [Ri ght Upper Arm] 122/73 Pulse Oximetry 99 98 99 Oxygen Delivery Me thod Room Air 12/13/23 12:30 12/13/23 12:56 12/13/23 13:00 Temperature Pulse Rate 60 64 64 Pulse Rate [Pulse Oximeter] Respiratory Rate Blood Pressure 129/64 Blood Pressure [Ri ght Upper Arm] Pulse Oximetry 98 100 100 Oxygen Delivery Me thod 12/13/23 13:01 12/13/23 13:02 12/13/23 13:15 Temperature Pulse Rate 64 65 71 Pulse Rate [Pulse Oximeter] Respiratory Rate Blood Pressure 118/78 Blood Pressure [Ri ght Upper Arm] Pulse Oximetry 100 98 97 Oxygen Delivery Me thod 12/13/23 13:30 12/13/23 13:31 12/13/23 13:46 Temperature Pulse Rate 77 82 77 Pulse Rate [Pulse Oximeter] Respiratory Rate Blood Pressure 118/67 Blood Pressure [Ri ght Upper Arm] Pulse Oximetry 98 99 100 Oxygen Delivery Me thod 12/13/23 14:00 12/13/23 14:01 12/13/23 14:15 Temperature Pulse Rate 80 72 80 Pulse Rate [Pulse Oximeter] Respiratory Rate Blood Pressure 113/60 Blood Pressure [Ri ght Upper Arm] Pulse Oximetry 98 98 97 Oxygen Delivery Me thod 12/13/23 14:30 12/13/23 14:31 12/13/23 14:45 Temperature Pulse Rate 76 77 76 Pulse Rate [Pulse Oximeter] Respiratory Rate Blood Pressure 103/53 L Blood Pressure [Ri ght Upper Arm] Pulse Oximetry 98 98 99 Oxygen Delivery Me thod Documenting provider has reviewed patient's vital signs: yes Course Course ED Course: Differential diagnosis includes but is not limited to new viral infection, chronic fatigue, rhabdomyolysis, be 12 deficiency, low magnesium, hypothyroidism, urinary tract infection. At this time patient has no evidence of elevated pulse, elevated temperature or hypoxia. Will obtain chest x-ray, lab values to include CBC, comprehensive panel, CRP, mono, strep, triple swab, TSH, magnesium, vitamin-D. Patient is given 1 L of normal saline and Zofran 4 mg. Reevaluation(s) Reevaluation #1: Patient is requesting medication for pain. Will use Toradol 15 mg IV. Vital Signs Vital signs: Initial Vital Signs Temperature 98.2 F 12/13/23 11:34 Temperature Source Temporal Artery Scan 12/13/23 11:34 Pulse Rate 66 12/13/23 11:34 Pulse Rhythm Regular 12/13/23 11:34 Respiratory Rate 20 12/13/23 11:34 Blood Pressure 122/73 12/13/23 11:34 Blood Pressure Mean 89 12/13/23 11:34 Blood Pressure Position Sitting 12/13/23 11:34 Pulse Oximetry 99 12/13/23 11:34 Oxygen Delivery Method Room Air 12/13/23 11:34 Vital Signs Temperature 98.2 F 12/13/23 11:34 Pulse Rate 66 12/13/23 11:34 Respiratory Rate 20 12/13/23 11:34 Blood Pressure 122/73 12/13/23 11:34 Pulse Oximetry 99 12/13/23 11:34 Oxygen Delivery Method Room Air 12/13/23 11:34 Temperature 98.2 F 12/13/23 11:34 Pulse Rate 76 12/13/23 14:45 Respiratory Rate 12/13/23 11:34 Blood Pressure 103/53 L 12/13/23 14:31 Pulse Oximetry 99 12/13/23 14:45 Oxygen Delivery Method Room Air 12/13/23 11:34 Medications Administered Medications: Discontinued Medications Generic Name Dose Route Start Last Admin Trade Name Freq PRN Reason Stop Dose Admin Sodium Chloride 1,000 mls @ 1,000 mls/hr 12/13/23 12:17 12/13/23 13:46 0.9 % Sodium Chloride 1000 Ml IV 12/13/23 13:16 Infused .Q1H PAWEL Infusion Ketorolac Tromethamine 15 mg 12/13/23 13:58 12/13/23 14:17 Ketorolac 15 Mg/Ml Inj IVP 12/13/23 13:59 15 mg ONCE ONE Administration Ondansetron HCl 4 mg 12/13/23 12:15 12/13/23 12:25 Ondansetron 2 Mg/Ml Inj IVP 12/13/23 12:16 4 mg ONCE ONE Administration MDM - Weakness MDM Narrative Medical decision making narrative: 1. Post viral fatigue-at this time we have no evidence of a new infection, rhabdomyolysis, mono strep or vitamin deficiency. I am at a loss to explain why patient is feeling this fatigued. She did receive a L of fluid, and evaluation. No evidence of pneumonia on x-ray. She was prepared for this as we spoke about it when she 1st arrived that I may not be able to find exactly what is causing this. I would have her follow-up with her primary MD for recheck possibly further examination. 2. Headache-patient received Toradol 15 mg IV during her stay. 3. Disposition-home at this time. Seek medical attention for worsening symptoms. To the best of her ability try to rest and push fluids. Medical Records Attestation: I reviewed the patient's medical records. Lab Data Attestation: I reviewed the patient's lab results. Labs: Lab Results 12/13/23 12/13/23 12/13/23 Range/Units 12:26 12:34 12:45 WBC 9.75 (4.50-11.00) K/uL RBC 3.94 L (4.00-5.20) m/uL Hgb 12.5 (12.0-16.0) gm/dL Hct 36.6 (33.0-51.0) % MCV 93 (80-100) fL MCH 32 (26-34) pg MCHC 34 (32-36) gm/dL RDW Coeff of Shira 13.4 (11.5-15.5) % Plt Count 424 (140-440) K/uL Neut % (Auto) 63.9 (42.0-72.0) % Lymph % (Auto) 27.7 (20-44) % Crowley % (Auto) 6.8 (0.0-11.0) % Eos % (Auto) 0.9 (0.0-7.0) % Baso % (Auto) 0.1 (0.0-3.0) % Neut # (Auto) 6.23 (1.7-7.0) K/uL Lymph # (Auto) 2.70 (0.90-2.90) K/uL Crowley # (Auto) 0.70 (0.00-0.90) K/UL Eos # (Auto) 0.09 (0.00-0.50) K/uL Baso # (Auto) 0.01 (0.00-0.30) K/uL Abs Immat Gran (auto) 0.06 (0.00-0.30) K/uL Imm/Tot Granulo (auto) 0.6 % Sodium 136 (135-149) mmol/L Potassium 3.8 (3.6-5.1) mmol/L Chloride 105 (96-114) mmol/L Carbon Dioxide 24 (20-32) mmol/L Anion Gap 7 (7-15) mEq/L BUN 14 (5-24) mg/dL Creatinine 0.6 (0.5-1.5) mg/dL Estimated Creat Clear 110.86 Estimated GFR 118 ml/min Glucose 89 (60-115) mg/dL Calcium 9.1 (8.4-10.6) mg/dL Magnesium 2.0 (1.5-2.6) mg/dL Total Bilirubin 0.4 (0.1-1.5) mg/dL AST 22 (12-35) U/L ALT 17 (4-35) U/L Alkaline Phosphatase 67 (40-150) U/L Total Creatine Kinase 52 (41-117) U/L C-Reactive Protein < 0.5 L (0.5-1.0) mg/dL Total Protein 7.0 (6.0-8.3) g/dL Albumin 4.0 (3.3-5.0) g/dL Lipase 86 (23-300) U/L Vitamin B12 402 (243-894) pg/mL 25-OH Vitamin D Total 51 (30-80) ng/mL TSH 1.170 (0.270-4.200) uIU/mL Urine Color (Yellow) Urine Appearance (Clear) Urine pH (5.0-8.5) Ur Specific [place] (1.000-1.030) Urine Protein (Negative) Urine Glucose (UA) (Negative) Urine Ketones (Negative) Urine Blood (Negative) Urine Nitrite (Negative) Urine Bilirubin (Negative) Urine Urobilinogen (0.2-1.0) Ur Leukocyte Esterase (Negative) Urine RBC (0-2) Urine WBC (0-5) Ur Squamous Epith Cells (None-Few) Urine Bacteria (None) SARS-CoV-2 (PCR) Negative SARS-CoV-2 (Negative) Monoscreen Negative (Negative) Influenza Type A (PCR) Negative PCR FLU A (Negative) Influenza Type B (PCR) Negative PCR FLU B (Negative) RSV (PCR) Negative PCR RSV (Negative) Group A Strep DNA NOT DETECTED (Not Detectd) Lab Acknowledgement Test Added 12/13/23 Range/Units 13:30 WBC (4.50-11.00) K/uL RBC (4.00-5.20) m/uL Hgb (12.0-16.0) gm/dL Hct (33.0-51.0) % MCV (80-100) fL MCH (26-34) pg MCHC (32-36) gm/dL RDW Coeff of Shira (11.5-15.5) % Plt Count (140-440) K/uL Neut % (Auto) (42.0-72.0) % Lymph % (Auto) (20-44) % Crowley % (Auto) (0.0-11.0) % Eos % (Auto) (0.0-7.0) % Baso % (Auto) (0.0-3.0) % Neut # (Auto) (1.7-7.0) K/uL Lymph # (Auto) (0.90-2.90) K/uL Crowley # (Auto) (0.00-0.90) K/UL Eos # (Auto) (0.00-0.50) K/uL Baso # (Auto) (0.00-0.30) K/uL Abs Immat Gran (auto) (0.00-0.30) K/uL Imm/Tot Granulo (auto) % Sodium (135-149) mmol/L Potassium (3.6-5.1) mmol/L Chloride (96-114) mmol/L Carbon Dioxide (20-32) mmol/L Anion Gap (7-15) mEq/L BUN (5-24) mg/dL Creatinine (0.5-1.5) mg/dL Estimated Creat Clear Estimated GFR ml/min Glucose (60-115) mg/dL Calcium (8.4-10.6) mg/dL Magnesium (1.5-2.6) mg/dL Total Bilirubin (0.1-1.5) mg/dL AST (12-35) U/L ALT (4-35) U/L Alkaline Phosphatase (40-150) U/L Total Creatine Kinase (41-117) U/L C-Reactive Protein (0.5-1.0) mg/dL Total Protein (6.0-8.3) g/dL Albumin (3.3-5.0) g/dL Lipase (23-300) U/L Vitamin B12 (243-894) pg/mL 25-OH Vitamin D Total (30-80) ng/mL TSH (0.270-4.200) uIU/mL Urine Color Yellow (Yellow) Urine Appearance Clear (Clear) Urine pH 7.0 (5.0-8.5) Ur Specific [place] 1.015 (1.000-1.030) Urine Protein Negative (Negative) Urine Glucose (UA) Negative (Negative) Urine Ketones Negative (Negative) Urine Blood Negative (Negative) Urine Nitrite Negative (Negative) Urine Bilirubin Negative (Negative) Urine Urobilinogen 0.2 (0.2-1.0) Ur Leukocyte Esterase Negative (Negative) Urine RBC 0-2 (0-2) Urine WBC 0-2 (0-5) Ur Squamous Epith Cells None (None-Few) Urine Bacteria None (None) SARS-CoV-2 (PCR) (Negative) Monoscreen (Negative) Influenza Type A (PCR) (Negative) Influenza Type B (PCR) (Negative) RSV (PCR) (Negative) Group A Strep DNA (Not Detectd) Lab Acknowledgement Imaging Data Chest x-ray: Attestation: I have reviewed the pertinent imaging results. My impression: No obvious infiltrate Radiologist's impression: Normal cardiac contour. Mediastinal structures appear normal by plain film. Lungs and pleural spaces appear normal. Normal osseous structures. Impression: Normal plain film examination of the chest ECG Data Attestation: I personally reviewed and interpreted this ECG as follows: ECG interpretation date: 12/13/23 Interpretation: EKG by my read shows sinus bradycardia at a rate of 55 I do not note any acute ST or T-wave changes. In addition QT and MD intervals within normal limits. Discharge Plan Discharge Clinical Impression: Weakness Patient Disposition: Home, Self-Care Condition: Improved Additional Instructions: At this time laboratory values are reassuring and I I am unable to explain your symptoms that your experiencing. This could perhaps be an additional virus on top of the influenza that she work still recovering from. At this time x-ray shows no evidence of pneumonia, your white count and inflammatory markers are reassuring. Your liver function tests are normal. Your vitamin-D, TSH are also normal. You have tested negative for COVID, mono, influenza a and B, RSV and strep. At this time I would like you to follow-up with your primary doc for further evaluation if you have ongoing symptoms. Return to the emergency room as needed. Prescriptions: No Action Cannabinoids PO lamotrigine [Lamictal] 100 mg tablet 100 mg PO BID Qty: 180 3RF dextroamphetamine-amphetamine [Adderall XR] 25 mg capsule,extended release 24hr 25 mg PO QAM Qty: 30 0RF dextroamphetamine-amphetamine [Adderall XR] 25 mg capsule,extended release 24hr 25 mg PO QAM Qty: 30 0RF escitalopram oxalate [Lexapro] 10 mg tablet 10 mg PO QDAY Qty: 30 1RF Rx Instructions: 1/2 QD x 6 days then 1 QD sumatriptan succinate [Imitrex STATdose Pen] 6 mg/0.5 mL pen injector 6 mg subcut Q1-4H PRN (Reason: migraine headache) Qty: 2 5RF Rx Instructions: do not exceed 2 doses in a 24 hour period meloxicam 15 mg tablet 15 mg PO QDAY Qty: 90 3RF minocycline 100 mg capsule 200 mg PO QDAY Qty: 180 1RF clonazepam 1 mg tablet 0.5 - 1 mg PO BID PRN (Reason: anxiety) Qty: 40 1RF valacyclovir 1 gram tablet 1,000 mg PO DAILY Qty: 90 3RF Follow Up/Referrals: Calin Arango MD [Primary Care Provider] - Stand Alone Forms: MyHealth Info Instructions
--- NOTE | 2023-12-13 12:15 | XR_ITS ---
Final Report Patient: BLAYNE MOLINA Facility:?[facility] Patient ID:?[id number] Site Patient ID:?[id number]. Site :?[id number] Study:?XRay Chest 2V-12/13/2023 1:00:08 PM Ordering Physician:?DR. DAVE Final Report: Indication: Weakness and dizziness Technique: Two views of the chest were acquired Comparison: August 25, 2023 Findings: Normal cardiac contour. Mediastinal structures appear normal by plain film. Lungs and pleural spaces appear normal. Normal osseous structures. Impression: Normal plain film examination of the chest. Dictated by Nick Allen MD @ 12/13/2023 1:24:09 PM (Electronic Signature)
--- OUTSIDE RECORDS SUMMARY | 2023-12-13 12:20 | XMS_ITS | Continuity of Care Document ---
Author Name Unknown Organization [facility] Address [address] [place] [address] Phone Care Team Providers Care Shift Mgr Name Role Phone Kaila BENJAMIN, PhD, Jag Unavailable Unavai lable Allergies, Adverse Reactions, Alerts Substance Reaction Status Criticality tramadol Active No Information Medications Medication Instructions Dosage Effective Dates (start - stop) Status Comments BACLOFEN (unknown strength) Not Available - Active CYCLOBENZAPRINE HCL (unknown strength) Not Available - Active GABAPENTIN (unknown strength) Not Available - Active GLYCOPYRROLATE (unknown strength) Not Available - Active LIDOCAINE (unknown strength) Not Available - Active LORAZEPAM (unknown strength) Not Available - Active METFORMIN HCL (unknown strength) Not Available - Active NORLYDA (unknown strength) Not Available - Active ONDANSETRON ODT (unknown strength) Not Available - Active PRAMIPEXOLE DIHYDROCHLORIDE (unknown strength) Not Available - Active SPIRONOLACTONE (unknown strength) Not Available - Active SUMATRIPTAN (unknown strength) Not Available - Active VALACYCLOVIR (unknown strength) Not Available - Active Procedures Procedure Date Office/Outpatient Visit,New, Mod 2020 X-Ray Exam Of Neck Spine, 4+ Views Advance Directives Directive Yes / No Effective Date File Name No Information Encounters Encounter Description Practice Location Reason(s) For Visit Diagnoses Date Provider Providers Copied on Encounter [facility], [address], [place], [id number], [place] tel:[phone] [facility] No Information Kaila Rm. [facility], [address], [place], [address], [place]. tel:[phone] Office/Outpat ient Visit,New, Mod [facility], [address], [place], [place], [id number], [place] tel:[phone] [facility] No Information 1 Kaila Rm. [facility], [address], [place], [address], [place]. tel: [phone] Referring Provider: Calin Arango, [address], [address]. tel:[phone] Family History Family Member Type Diagnosis Age At Onset No Information Payers Payer name Insurance type Covered green party ID Authoriza tion(s) No Information Social History Type Description Quantity Date Captured [...]
--- OUTSIDE RECORDS SUMMARY | 2023-12-13 12:20 | XMS_ITS | Continuity of Care Document ---
Author Name Unknown Organization [facility] Address [address] [place] [address] Phone Care Team Providers Care Staff Psychologist Name Role Phone Kaila BENJAMIN, PhD, Jag [...] Copied on Encounter [facility], [address], [place], [id number], [place] tel:[phone] [facility] No Information Kaila Rm. [facility], [address], [place], [address], [place]. tel:[phone] Office/Outpat ient Visit,New, Mod [facility], [address], [place], [place], [id number], [place] tel:[phone] [facility] No Information [address] [facility], [address], [place], [address], [place]. tel:[phone] Referring Provider: Calin Arango, [address], [address]. tel:[phone] Family History Family Member Type Diagnosis Age At Onset No Information Payers Payer name Insurance type Covered republican ID Authoriza tion(s) No Information Social History [...]
--- OUTSIDE RECORDS SUMMARY | 2023-12-13 12:20 | XMS_ITS | Clinical Summary ---
Author Name Unknown Organization [facility] Address [place], [place] [address] Care Team Providers Care Tornado Chaser Name Role Phone Calin Arango MD Primary [...] H GSIL 11/23/2015 Overview: 11/2015 [facility] 12/2015 [place]: BERRY 1 12/2016 NIL / HPV negative 01/2018 NIL/HPV negative Plan: Pap/HPV due 01/2021 PCOS (polycystic ovarian syndrome) 07/30/2014 Oligomenorrhea 07/30/2014 Right lower quadrant pain 07/30/2014 Anxiety 06/30/2014 Overview: Not on meds Depression 06/30/2014 Establishing care with new doctor, encounter for 06/30/2014 Infertility 06/30/2014 Insomnia 06/30/2014 Migraine 06/30/2014 Nausea 06/30/2014 Nicotine use disorder 06/30/2014 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 Overview: [place] [facility] Agoraphobia with panic disorder 05/02/2013 Adjustment disorder with mixed anxiety and depre ssed mood 05/02/2013 Generalized anxiety disorder 01/15/2013 IBS (irritable bowel syndrome) Pilonidal cyst without abscess Diarrhea Resolved Problems Problem Noted Date Diagnosed Date Resolved Date Controlled substance agreement signed 04/18/2018 10/05/2018 Overview: Signed 04/18/18 Dr Candis Kearney Psychiatry Post-trauma response 03/21/2018 018 Bilateral kidney stones 10/12/201509/22 ADD (attention deficit disorder) 06/18/2011 10/05/2018 Allergic rhinitis 06/18/2011 10/05/2018 Issue of repeat prescriptions 05/25/2011 10/05/2018 Overview: IBS - taking Percocet and Ansaid Encounters Date Type Department Care Team Description 11/27/2023 4:30 PM YARD MOTOR OPERATOR Telemedicine [address] [phone] Calin Alvarenga PsyD, LP Telehealth; Individual Therapy 11/27/2023 Travel 11/26/2023 2:55 PM YARD MOTOR OPERATOR Ancillary Procedure [address] [phone] 11/26/2023 12:55 PM YARD MOTOR OPERATOR Office Visit [facility] [address] [place] [phone] Sowmya Rasmussen NP Person Under Investigation (PUI) (Body aches, fatigue, cough, tightness in chest, sore throat x 2 days) 11/26/2023 Travel 11/23/[address] [address] Calin Alvarenga PsyD, LP Appointment Request (Emergency appointment ) 11/15/2023 5:30 PM YARD MOTOR OPERATOR Office Visit [address] [address] Calin Alvarenga PsyD, LP Individual Therapy 11/15/2023 Travel 11/01/[address] [phone] Calin Alvarenga PsyD, LP Appointment (Pt looking for appt with Provider in October or early November 2023) 10/25/2023 4:30 PM YARD MOTOR OPERATOR Office Visit [address] [phone] Calin Alvarenga PsyD, LP Individual Therapy 10/25/2023 Travel 10/18/2023 4:30 PM YARD MOTOR OPERATOR Office Visit [address] [place] [address] Calin Alvarenga PsyD, HALIE Individual Therapy 10/18/2023 Travel 10/11/2023 4:30 PM YARD MOTOR OPERATOR Office Visit [address] [place] [address] Calin Alvarenga PsyD, HALIE Individual Therapy 10/11/2023 Travel 10/04/2023 4:30 PM YARD MOTOR OPERATOR Office Visit [address] [place] [address] Calin Alvarenga PsyD, HALIE [facility] 10/04/2023 Travel 09/27/2023 4:30 PM YARD MOTOR OPERATOR Office Visit [address] [place] [address] Calin Alvarenga PsyD, HALIE Individual Therapy 09/27/2023 Travel 09/20/2023 4:30 PM YARD MOTOR OPERATOR Office Visit [address] [place] [address] Calin Alvarenga PsyD, HALIE Individual Therapy 09/20/2023 Travel 09/13/2023 4:30 PM YARD MOTOR OPERATOR Office Visit [address] [place] [address] Calin Alvarenga PsyD, HALIE Individual Therapy 09/13/2023 Travel from Last 3 Months Immunizations Name [...] Comments Blood Pressure 107/56 11/26/2023 1:59 PM YARD MOTOR OPERATOR Pulse 67 11/26/2023 3:36 PM YARD MOTOR OPERATOR Temperature 37.5 ??C (99.5 ??F) 11/26/2023 1:59 PM CS T Respiratory Rate 18 11/26/2023 3:36 PM YARD MOTOR OPERATOR Oxygen Saturation 99% 11/26/2023 3:36 PM YARD MOTOR OPERATOR Inhaled Oxygen Concentration - - Weight 68.8 kg (151 lb 11.2 oz) 11/26/2023 1:59 PM YARD MOTOR OPERATOR Height 162.6 cm (5' 4) 08/24/2023 1:47 PM CDT Body Mass Index 26.04 08/24/2023 1:47 PM CDT Plan of Treatment Upcoming Encounters Date Type Department Care Team (Late st Contact Info) Description 12/25/2023 3:30 PM YARD MOTOR OPERATOR Telemedicine [address] [phone] Calin Alvarenga, Ruth Ann, LP [address] [place] [phone] 01/08/2024 3:30 PM CDT Telemedicine [address] [phone] Calin Alvarenga, Ruth Ann, LP [address] [place], [place] [phone] 01/22/2024 3:30 PM CDT Telemedicine [address] [place] [phone] Calin Alvarenga, HansyD, LP [address] [place] [address] 02/05/2024 3:30 PM CDT Telemedicine [facility] [address] [place] [address] Calin Alvarenga, HansyD, LP [address] [place] [address] Health Maintenance Due Date Last Done Comments [...] PA AND LATERAL STAT 11/26/2023 2:55 PM YARD MOTOR OPERATOR Acute cough SOB (shortness of breath) INFLUENZA A/B PCR Routine 11/26/2023 2:0 2 PM YARD MOTOR OPERATOR Sore throat COVID-19 MOLECULAR Routine 11/26/2023 2: 02 PM YARD MOTOR OPERATOR Sore throat STREP A PCR STAT 11/26/2023 2:02 PM YARD MOTOR OPERATOR Sore throat THROAT RAPID STREP A WITH REFLEX STAT 11/26/2023 2:02 PM YARD MOTOR OPERATOR Sore throat from Last 3 Months Results * XR CHEST 2 VIEWS PA AND LATERAL (11/26/2023 2:55 PM YARD MOTOR OPERATOR) Anatomical Region Laterality Modality CHEST, THORAX, Lung, HEART Compu matt Radiography 11/26/2023 3:45 PM YARD MOTOR OPERATOR Impressions 11/26/2023 3:45 PM YARD MOTOR OPERATOR Negative chest. Dictated by Abbi Welch MD @ 11/26/2023 3:45:38 PM (Electronically Signed) Narrative 11/26/2023 3:45 PM YARD MOTOR OPERATOR For Patients: ??As a result of the [...] IMAGING * COVID-19 MOLECULAR (11/26/2023 2:02 PM YARD MOTOR OPERATOR) COVID 19 [facility] MOLECULAR Negative Negative 11/27/2023 6:44 PM YARD MOTOR OPERATOR [facility] NTRAL LABORATORY TESTING LABORATORY [facility] 11/27/2023 6:44 PM YARD MOTOR OPERATOR [facility] NTRAL [facility] Comment:Specimen submitted t o [facility] for testing. Other SPECIMEN FROM NASAL FOSSAE / Unknown Non-Blood / Unknown 11/26/2023 2:02 PM YARD MOTOR OPERATOR 11/26/2023 2:29 PM YARD MOTOR OPERATOR Narrative [facility] - 11/27/2023 6:44 PM YARD MOTOR OPERATOR All PCR tests are subject to false [...] or revoked sooner. Sowmya Rasmussen NP MICROBIOLOGY Performing Organization Address [facility] Co de Phone Number [facility] [address] [place] [address], [place] * STREP A PCR (11/26/2023 2:02 PM YARD MOTOR OPERATOR) GROUP A STREP Negative 11/27/2023 2:35 PM YARD MOTOR OPERATOR [facility] TRAL LABORATORY Throat SPECIMEN FROM THROAT / Unknown Non-Blood / Unknown 11/26/2023 2:02 PM YARD MOTOR OPERATOR 11/26/2023 2:28 PM YARD MOTOR OPERATOR Sowmya Rasmussen NP MICROBIOLOGY Performing Organization Address [facility]/ZIP Co de Phone Number [facility] [address] [place] [address], [place] * (ABNORMAL) INFLUENZA A/B PCR (11/26/2023 2:02 PM YARD MOTOR OPERATOR) INFLUENZA A PCR Positive(A) 11/27/2023 6:44 PM YARD MOTOR OPERATOR [facility] TRAL LABORATORY INFLUENZA B PCR Negative 11/27/2023 6:44 PM YARD MOTOR OPERATOR [facility] TRAL LABORATORY Other SPECIMEN FROM NASAL FOSSAE / Unknown Non-Blood / Unknown 11/26/2023 2:02 PM YARD MOTOR OPERATOR 11/26/2023 2:29 PM YARD MOTOR OPERATOR Sowmya Rasmussen NP MICROBIOLOGY [facility] [address] [place] [address], * THROAT RAPID STREP A WITH REFLEX [38752.1] - age 0 through 17 yrs (11/26/2023 2:02 PM YARD MOTOR OPERATOR) STREP A ANTIGEN Negative 11/26/2023 2:28 PM YARD MOTOR OPERATOR [facility] Comment:PCR to follow. Throat SPECIMEN FROM THROAT / Unknown Non-Blood / Unknown 11/26/2023 2:02 PM YARD MOTOR OPERATOR 11/26/2023 2:07 PM YARD MOTOR OPERATOR Sowmya Rasmussen NP MICROBIOLOGY [facility] [address] [place] [address] from Last 3 Months Advance Directives Latest Code Status on File [...] 2:03 PM 04/18/2017 7:30 PM Care Teams Tornado Chaser Relationship Specialty Start Date End Date Calin Arango MD [address] [place] [address] PCP - General Family Practice 07/10/20
[2023-12-13] MEDS: ONDANSETRON 2 MG/ML inj 4 MG IVP (12:25)
[2023-12-13] MEDS: 0.9 % SODIUM CHLORIDE 1000 ml 1,000 ML IV (12:30)
[2023-12-13 13:09] LABS: Chloride* 105 mmol/L (96-114); Sodium* 136 mmol/L (135-149)
[2023-12-13 13:10] LABS: Basophils Absolute Auto 0.01 K/uL (0.00-0.30); Basophils Percent Auto 0.1 % (0.0-3.0); Eosinophils Absolute Auto 0.09 K/uL (0.00-0.50); Eosinophils Percent Auto 0.9 % (0.0-7.0); Hematocrit 36.6 % (33.0-51.0); Hemoglobin* 12.5 gm/dL (12.0-16.0); Immature Granulocytes Abs Auto 0.06 K/uL (0.00-0.30); Immature Granulocytes Pct Auto 0.6 %; Lymphocytes Percent Auto 27.7 % (20-44); Mean Corpuscular HGB Conc 34 gm/dL (32-36); Mean Corpuscular Hemoglobin 32 pg (26-34); Mean Corpuscular Volume 93 fL (80-100); Monocytes Percent Auto 6.8 % (0.0-11.0); Neutrophils Absolute Auto 6.23 K/uL (1.7-7.0); Neutrophils Percent Auto 63.9 % (42.0-72.0); Platelet Count* 424 K/uL (140-440); Potassium* 3.8 mmol/L (3.6-5.1); RDW Coefficient of Variation % 13.4 % (11.5-15.5); Red Blood Count 3.94 m/uL (4.00-5.20); White Blood Count* 9.75 K/uL (4.50-11.00)
[2023-12-13 13:11] LABS: Creatinine* 0.6 mg/dL (0.5-1.5); Est. Creatinine Clearance* 110.86; Estimated Glomerular Filt Rate 118 ml/min; Slide Review Reflex No
[2023-12-13 13:12] LABS: Alkaline Phosphatase* 67 U/L (40-150); Anion Gap 7 mEq/L (7-15); Aspartate Amino Transferase* 22 U/L (12-35); Bilirubin Total* 0.4 mg/dL (0.1-1.5); Blood Urea Nitrogen* 14 mg/dL (5-24); Carbon Dioxide* 24 mmol/L (20-32); Creatine Kinase* 52 U/L (41-117); Lipase* 86 U/L (23-300)
[2023-12-13 13:13] LABS: Alanine Aminotransferase* 17 U/L (4-35); Calcium* 9.1 mg/dL (8.4-10.6); Glucose* 89 mg/dL (60-115)
[2023-12-13 13:17] LABS: C Reactive Protein* < 0.5 mg/dL (0.5-1.0)
[2023-12-13 13:22] LABS: Mono Screen* Negative (Negative)
[2023-12-13 13:27] LABS: Strep A DNA Probe* NOT DETECTED (Not Detectd)
[2023-12-13 13:28] LABS: Vitamin D 25 Hydroxy* 51 ng/mL (30-80)
[2023-12-13 13:49] LABS: PCR FLU A Negative PCR FLU A (Negative); PCR FLU B Negative PCR FLU B (Negative); PCR RSV Negative PCR RSV (Negative); SARS PCR* Negative SARS-CoV-2 (Negative)
[2023-12-13 14:01] LABS: Vitamin B12* 402 pg/mL (243-894)
[2023-12-13] MEDS: KETOROLAC 15 MG/ML inj IVP (14:17)
[2023-12-13 14:57] LABS: Appearance Urine Clear (Clear); Bilirubin Urine Negative (Negative); Blood Urine Negative (Negative); Color Urine Yellow (Yellow); Glucose Urine Negative (Negative); Ketones Urine Negative (Negative); Leukocyte Esterase Urine Negative (Negative); Nitrite Urine Negative (Negative); Protein Urine Negative (Negative); Specific Gravity Urine 1.015 (1.000-1.030); Urobilinogen Urine 0.2 (0.2-1.0)
[2023-12-13 14:59] LABS: RBC Urine 0-2 (0-2); WBC Urine 0-2 (0-5)
== END 2023-12-13 14:54 | disposition home or self-care (01) ==
PROVIDERS: Emergency Provider Family Medicine; PCP Family Medicine
DX: R53.1 Weakness (principal)
CPT/HCPCS: 36415; 71046; 80053; 81001; 82306; 82550; 82607; 83690; 83735; 84443; 85025; 86140; 86308; 87631; 87651; 96374; 96375; 99284; J1885; J2405; J7030

== ENCOUNTER 2024-01-15 12:50 | Outpatient (CLI) | payer BC, SELFPAY ==
--- NOTE | 2024-01-15 13:00 | MR_ITS ---
Patient: BLAYNE MOLINA Facility:?[facility] RIS Patient ID:?[id number] Site Patient ID:?[id number]. Site :?[id number] Study:?MRI-Shoulder Left WO-01/15/2024 1:51:38 PM Ordering Physician:ALEX Final Report: EXAM: MRI OF THE LEFT SHOULDER, WITHOUT CONTRAST CLINICAL INDICATION: Left shoulder pain. COMPARISON PLAIN FILMS: None available at time of interpretation. COMPARISON CROSS-SECTIONAL IMAGING STUDIES: None available at time of interpretation. TECHNICAL: Axial, sagittal oblique and coronal oblique T1, PD, PD FS and T2-weighted images. Shoulder surface coil. FINDINGS: ROTATOR CUFF TENDONS AND MUSCLES AND DELTOID: Supraspinatus: No tendinosis, tendon tearing, muscle atrophy or muscle edema. Infraspinatus: No tendinosis, tendon tearing, muscle atrophy or muscle edema. Subscapularis: No tendinosis, tendon tearing, muscle atrophy or muscle edema. Teres Minor: No tendinosis, tendon tearing, muscle atrophy or muscle edema. Deltoid: No muscle atrophy or edema. - BURSA: Subacromial-subdeltoid: No abnormal bursal edema, thickening or bursal fluid. - BICEPS TENDON, LONG HEAD: The long head of the biceps tendon is appropriately positioned within the bicipital groove without tendon subluxation or dislocation. The biceps lara mechanism is intact. The biceps anchor appears grossly intact. There is no significant tendinosis or tendon tearing. - CORACOACROMIAL ARCH: Acromial Morphology: Type 1 acromial morphology. No abnormal lateral or anterior downward sloping of the acromion. No significant subacromial spur. No os acromiale. Acromiohumeral Interval: Normal. Coracohumeral Interval: Normal. - ACROMIOCLAVICULAR JOINT REGION: AC Joint: No significant arthrosis, inferior hypertrophy, joint space widening, findings of acute injury or AC joint capsulitis. Ligaments: The coracoclavicular ligaments are intact. - GLENOHUMERAL JOINT: Joint space: No effusion or synovitis. Humeral Head Articular Cartilage: No focal cartilage defect or underlying subchondral marrow changes. Glenoid Articular Cartilage: No focal cartilage defect or underlying subchondral marrow changes. Labrum: No labral tear or paralabral cyst. Alignment: Maintained. Capsule: No capsular edema or abnormal capsular thickening. - OSSEOUS STRUCTURES: No fracture, marrow edema or marrow replacement process. - OTHER FINDINGS: There is no abnormality within the suprascapular or spinoglenoid notches nor within the quadrilateral space. No axillary adenopathy or mass. IMPRESSION: 1. Unremarkable MRI of the left shoulder. Dictated by Hernesto Carlson MD @ 01/15/2024 3:46:15 PM Signed by:?Hernesto Carlson MD @01/15/2024 3:46:15 PM (Electronic Signature)
== END 2024-01-15 12:51 | disposition home or self-care (01) ==
LOC: MRI 12:53
PROVIDERS: PCP Family Medicine; Visit Provider Family Medicine
DX: M25.512 Pain in left shoulder (principal)
CPT/HCPCS: 73221

== ENCOUNTER 2024-04-23 08:20 | Outpatient (CLI) | payer BC, OTHER, SELFPAY ==
--- OUTSIDE RECORDS SUMMARY | 2024-04-23 08:27 | XMS_ITS | Continuity of Care Document ---
Author Organization [facility] Address [address] [place] [address] Phone Care Team Providers Care Warehouse Production Worker Name Role Phone Kaila BENJAMIN, PhD, Jag [...] Diagnoses Date Provider Providers Copied on Encounter [facility], [address], [place], [id number], [place] tel:[phone] [facility] No Information Kaila Rm. [facility], [address], [place], [address], [place]. tel:[phone] Office/Outpat ient Visit,New, Mod [facility], [address], [place], [place], [id number], [place] tel:[phone] [facility] No Information 1 Kaila Rm. [facility], [address], [place], [address], [place]. tel:[phone] Referring Provider: Calin Arango, [facility] [address] [place], [address]. tel:[phone] Family History Family Member Type Diagnosis Age [...]
--- OUTSIDE RECORDS SUMMARY | 2024-04-23 08:27 | XMS_ITS | Clinical Summary ---
Author Organization [employer] [facility] Address [place], [place] [address] Care Team Providers Care Shoelace Tipping Machine Operator Name Role Phone Calin Arango MD [...] Take 1,000 mg by mouth once daily. Active clonazePAM (KLONOPIN) 1 mg tablet TAKE 1/2 TO 1 TABLET BY MOUTH TWICE DAILY NEEDED FOR ANXIETY 07/13/2022 Active metoprolol succinate (TOPROL XL) 50 mg sustained-release tablet Take 50 mg by mouth once daily. 07/11/2022 Active metFORMIN (GLUCOPHAGE XR) 750 mg Extended-Release tablet Take 1,500 mg by mouth once daily. 11/09/2022 Active prochlorperazine (COMPAZINE) 10 mg tablet Take 10 mg by mouth 3 times daily if needed for Nausea/Vomiting. Active methylPREDNISolone (MEDROL DOSEPAK) 4 mg tabletIndications: Chronic bilateral low back pain, unspecified whether sciatica present Take by mouth as instructed per packaging. 21 Tablet 03/02/2023 Active lidocaine 5 % topical patchIndications:C hronic bilateral low back pain, unspecified whether sciatica present Apply to intact skin to cover most painful area for max 12hr per 24hr period. 30 Patch 03/02/2023 Active gabapentin (NEURONTIN) 300 mg capsuleIndications :Chronic bilateral low back pain, unspecified whether sciatica present Take 1 Capsule (300 mg) by mouth at bedtime. 7 Capsule 03/02/2023 Active lidocaine 5 % topical patchIndications:S ciatica, unspecified laterality Apply to intact skin to cover most painful area for max 12hr per 24hr period. 14 Patch 08/16/2023 Active HYDROcodone-acetam inophen (5-325 mg/tablet)Indicati ons:Sciatica, unspecified laterality Take 1 Tablet by mouth every 4 hours if needed for Pain. Max acetaminophen dose: 4000 mg in 24 hrs. 10 Tablet 08/16/2023 Active crutchIndications: Closed displaced fracture of distal phalanx of right great toe, initial encounter For home use. 2 Each 08/24/2023 Active lamoTRIgine (LAMICTAL) 100 mg tablet Take 100 mg by mouth two times daily. 11/09/2023 Active meloxicam 15 mg tablet Take 15 mg by mouth once daily. 11/08/2023 Active dextroamphetamine- amphetamine (ADDERALL XR) 20 mg Extended-Release capsule Take 20 mg by mouth every morning. 11/06/2023 Active benzonatate (TESSALON) 200 mg capsuleIndications :Acute cough Take 1 Capsule (200 mg) by mouth 3 times daily if needed for Cough. 21 Capsule 11/26/2023 Active albuterol HFA (PRO-AIR; VENTOLIN; PROVENTIL) 90 mcg/actuation inhalerIndications :Acute cough,SOB (shortness of breath) Inhale 2 Puffs by mouth every 4 hours if needed for Shortness Of Breath. 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 Overview: [place] [facility] Agoraphobia with [...] Encounters Date Type Department Care Team Description 04/01/2024 3:30 PM CDT Office Visit [facility] [address] [place] [address] Calin Alvarenga PsyD, LP Individual Therapy 04/01/2024 Travel 03/27/2024 Telephone [facility] [address] [facility] [address] [place] [address] Calin Alvarenga PsyD, HALIE Appointment 03/25/2024 2:30 PM CDT Office Visit [address] [place] [address] Calin Alvarenga PsyD, LP Individual Therapy 03/25/2024 Travel 03/14/2024 5:30 PM CDT Office Visit [address] [place] [address] Calin Alvarenga PsyD, LP Individual Therapy 03/14/2024 Travel 03/07/2024 5:30 PM CDT Office Visit [address] [phone] Calin Alvarenga PsyD, LP Individual Therapy 03/07/2024 Travel 02/28/2024 8:00 AM CDT Telemedicine [address] [place] [address] Calin Alvarenga PsyD, HALIE Telehealth; Individual Therapy 02/27/[address] [place] [address] Calin Alvarenga PsyD, HALIE Mental Health Issue 02/19/2024 5:30 PM CDT Office Visit [address] [phone] Calin Alvarenga PsyD, LP Individual Therapy 02/19/2024 Travel 02/14/2024 1:50 PM CDT - 02/14/2024 6:17 PM CDT Emergency [facility] [address] [facility] [place] [place] [address] Ari Calix MD Intractable migraine without status migrainosus, unspecified migraine type (Primary Dx) Discharge Disposition: Home Self Care 02/13/2024 4:30 PM CDT Office Visit [address] [phone] Calin Alvarenga PsyD, LP Individual Therapy 02/13/2024 Travel 02/05/2024 3:30 PM CDT Telemedicine [address] [phone] Calin Alvarenga PsyD, LP Telehealth; Individual Therapy from Last 3 Months Immunizations Name Administration [...] Answer Date Recorded PHQ-2 TOTAL SCORE 6 04/07/2024 Social Connections Answer Date Recorded Frequency of [...] Outcome GA Total Labor Labor/2nd/3rd Weight Sex Type Anes PTL Rosario A1 A5 Name Clin Term Last Filed Vital Signs Vital Sign Reading Time Taken Comments Blood Pressure 115/66 02/14/2024 6:00 PM CDT Pulse 73 02/14/2024 6:00 PM CDT Temperature 36.7 ??C (98.1 ??F) 02/14/2024 1:54 PM CD T Respiratory Rate 20 02/14/2024 1:54 PM CDT Oxygen Saturation 98% 02/14/2024 6:00 PM CDT Inhaled Oxygen Concentration - - Weight 70.2 kg (154 lb 12.8 oz) 02/14/2024 1:54 PM CDT Height 162.6 cm (5' 4) 02/14/2024 1:54 PM CDT Body Mass Index 26.57 02/14/2024 1:54 PM CDT Plan of Treatment Health Maintenance Due Date Last Done Comments Hepatitis C screening for age 18-79 01/13/2004 BMI (ht and wt on same day) for age 18+ 06/07/2020 06/07/2019, 05/17/2019, 05/14/2019, Additional history exists Tetanus booster 05/03/2021 05/03/2011 Pap test for age 21-65 05/02/2022 9, 05/02/2019, 02/02/2018, Additional history exists COVID-19 vaccine series ( season) 2023 Influenza for age 9-49 06/23/2024 7, 07/27/2016, 08/30/2013, Additional history exists Depression screening for age 12+ 04/01/2025 04/01/2024, 03/25/2024, 03/14/2024, Additional history exists Tdap Completed 05/03/2011 HIV for age 15-65 Completed 01/30/2018 Pneumococcal series for age 6-64 Aged Out No longer eligible based on patient's age to complete this topic Procedures Procedure Name Priority Date/Time Associated Diagnosis Comments CT HEAD BRAIN WO STAT 02/14/2024 2:47 PM CDT EKG 12 LEAD STAT 02/14/2024 2:01 PM CDT CORE OVEN TENDER THIN PREP PAP SCREEN IMAGED Routine 05/02/2019 3:15 PM CDT ANTI HIV 1/2 Routine 01/30/2018 2:45 PM CDT STD exposure from Last 3 Months or Most Recently Relevant to Health Maintenance Results * CT HEAD BRAIN WO (02/14/2024 2:47 PM CDT) Anatomical Region Laterality Modality HEAD, BRAIN Computed Tomogra phy 02/14/2024 2:59 PM CDT Impressions 02/14/2024 2:59 PM CDT Slightly suboptimal examination secondary to streak artifact from presumed hair clip. No acute intracranial abnormality. Please note that all CT scans at this facility use dose modulation, iterative reconstruction, and/or weight-based dosing when appropriate to reduce radiation dose to as low as reasonably achievable. Dictated by Rubens Ha MD @ 02/14/2024 2:59:42 PM (Electronically Signed) Narrative 02/14/2024 2:59 PM CDT For Patients: ??As a result of the Cures Act, medical imaging exams and procedure reports are released immediately into your electronic medical record. ??You may view this report before your referring provider. ??If you have questions, please contact your health care provider. INDICATION: sudden severe headache TECHNIQUE: CT of the head was performed without IV contrast. COMPARISON: 04/03/2012. FINDINGS: Parenchyma: No acute hemorrhage, infarction, or mass. ?? Ventricles and extra-axial spaces: Appropriate for age. ?? Visualized paranasal sinuses: Clear. ?? Mastoid air cells: Clear. ?? Bones: No focal abnormality. ?? Additional comment: Slightly suboptimal examination secondary to streak artifact from presumed hair clip. Procedure Note Marvin Ha MD - 02/14/2024 For Patients: As a result of the Cures Act, medical imagingexams and procedure reports are released immediately into your electronicmedical record. You may view this report before your referring provider.If you have questions, please contact your health care provider. INDICATION: sudden severe headache TECHNIQUE: CT of the head was performed without IV contrast. COMPARISON: 04/03/2012. FINDINGS: Parenchyma: No acute hemorrhage, infarction, or mass. Ventricles and extra-axial spaces: Appropriate for age. Visualized paranasal sinuses: Clear. Mastoid air cells: Clear. Bones: No focal abnormality. Additional comment: Slightly suboptimal examination secondary to streakartifact from presumed hair clip. IMPRESSION: Slightly suboptimal examination secondary to streak artifact from presumedhair clip. No acute intracranial abnormality. Please note that all CT scans at this facility use dose modulation,iterative reconstruction, and/or weight-based dosing when appropriate toreduce radiation dose to as low as reasonably achievable. Dictated by Rubens Ha MD @ 02/14/2024 2:59:42 PM (Electronically Signed) Ari Calix MD CT * EKG 12 LEAD (02/14/2024 2:01 PM CDT) [facility] Interpretation Normal sinus rhythm Normal ECG No previous ECGs available BEYOND NOW Ventricular Rate 81 BPM BEYOND NOW Atrial Rate 81 BPM BEYOND NOW P-R Interval 158 ms BEYOND NOW QRS Duration 82 ms BEYOND NOW QT 376 ms [place] NOW QTc 436 ms BEYOND NOW P [place] 48 degrees BEYOND NOW R [place] 45 degrees BEYOND NOW T [place] 36 degrees BEYOND NOW 02/14/2024 2:01 PM CDT 02/14/2024 2:43 PM CDT Oswaldo Ed Triage EKG ORD BEYOND NOW [place], [place] * CORE OVEN TENDER THIN PREP PAP SCREEN IMAGED (05/02/2019 3:15 PM CDT) [facility] Case Report Gynecologic Cytology Report ? Case: [id number] ? Authorizing Provider: ??Zaira Rodriguez ?Collected: ? 05/02/2019 1515 ? MD Ivana ? Ordering Location: ? [facility] ?Received: ?05/06/2019 0858 ? First Screen: ?Areli, Rachana L ? Rescreen: ?Pat Browning ? Specimen: ?CORE OVEN TENDER ThinPrep Vial Screening, Cervical/Vaginal ? 05/16/2019 2:20 PM CDT [facility] INTERPRETATION/ RESULT NEGATIVE FOR INTRAEPITHELIAL LESION OR MALIGNANCY (NIL) (none) 05/16/2019 2:20 PM CDT [facility] LAB[facility]ATORY NISM(S) Shift in donna suggestive of bacterial vaginosis 05/16/2019 2:20 PM CDT [facility]AL LAB[facility]ATORY SPECIMEN ADEQUACY Satisfactory for evaluation Endocervical component present 05/16/2019 2:20 PM CDT [facility] HPV REQUEST HPV and PAP 05/16/2019 2:20 PM CDT [facility] Date of LMP 04/05/2019 05/16/2019 2:20 PM CDT [facility] Last Pap Date 11/27/2018 05/16/2019 2:20 PM CDT [facility]AT[facility] Last Pap Result [facility] 9 2:20 PM CDT [facility] ENTRAL LABORATORY Abnormal Pap or [place] Bx in last 5 years Yes 05/16/2019 2:20 PM CDT [facility] ENTRCT LAB[facility]ATORY Comment:12/22/18 BERRY-I Automated Review Successful 05/16/2019 2:20 PM CDT [facility] ENTR[facility]AT[facility] Comment:Specimen processed s uccessfully by automated manager star device, Mangrove SystemsPrep Imaging System, [employer] ANCILLARY TESTING CORE OVEN TENDER HPV Ordered, Please see separate report 05/16/2019 2:20 PM CDT [facility] ENTRCT LABORATORY Note The pap test is a screening technique, not a diagnostic procedure. ??It is used primarily to screen for squamous cancers and precursor lesions. ??Published studies have shown that it is subject to both false negative and false positive results. ??The pap test should not be used as the sole means to diagnose or exclude pre-malignant and malignant lesions. Cytology is screened and interpreted at [facility] - [address], [place] [address] and [facility] - [address]; [place] [address] and [facility] - [address]; [place] [address] and [facility] [address]; [place] [address] 05/16/2019 2:20 PM CDT [facility] ENTR[facility] Other (Cervical/Vagina l) 05/02/2019 3:15 PM CDT 05/06/2019 8:58 AM CDT Zaira Rodriguez MD PATHOLOGY/ CYTOLOGY [facility] [address] [place] [address], * ANTI HIV 1/2 (01/30/2018 2:45 PM CDT) HIV-1/HIV-2 ANTIBODY Non-Reacti ve Non-Reacti ve 01/30/2018 9:01 PM CDT [facility] Comment:HIV-1 p24 and HIV-1/ HIV-2 Ab not detected. Blood BLOOD SPECIMEN / Unknown Venipuncture / Unknown 01/30/2018 2:45 PM CDT 01/30/2018 2:46 PM CDT Calin Arango MD SEND OUTS [facility] LABORATORY-CENTRAL LABORATORY [address] [place] [address], from Last 3 Months or Most Recently Relevant to Health Maintenance Advance Directives * Full Code (Latest Code Status on File) Date Activated Date Inactivated Comments 11/14/2022 2:17 PM 11/15/2022 2:50 PM Question Answer Comments Code Status Discussion: Reviewed Preferences * Full Code Date Activated Date Inactivated Comments 08/19/2022 8:12 PM 08/22/2022 2:18 PM Question Answer Comments Code Status Discussion: Reviewed Preferences * Full Code Date Activated Date Inactivated Comments 05/21/2019 1:35 PM 05/21/2019 6:37 PM Question Answer Comments Code Status Discussion: Discussed * Full Code Date Activated Date Inactivated Comments 10/12/2018 1:05 PM 10/12/2018 5:12 PM Question Answer Comments Code Status Discussion: Discussed * Full Code Date Activated Date Inactivated Comments 04/18/2017 2:03 PM 04/18/2017 7:30 PM Care Teams Shoelace Tipping Machine Operator Relationship Specialty Start Date End Date Calin Arango MD [address] [place] [id number] PCP - General Family Practice 07/10/20
== END 2024-04-23 08:21 | disposition home or self-care (01) ==
PROVIDERS: PCP Family Medicine; Visit Provider Family Medicine
DX: R53.83 Other fatigue (principal)
CPT/HCPCS: 80048; 82550; 84443; 85025

== ENCOUNTER 2024-05-13 15:32 | Outpatient (CLI) | payer BC, OTHER, SELFPAY ==
--- OUTSIDE RECORDS SUMMARY | 2024-05-13 15:34 | XMS_ITS | Clinical Summary ---
Author Organization [employer] [facility] Address [place], [place] [address] Care Team Providers Care Press Secretary Name Role Phone Calin Arango MD Primary [...] H GSIL 11/23/2015 Overview: 11/2015 ASCH 12/2015 [place]: BERRY 1 12/2016 NIL / HPV negative 01/2018 NIL/HPV negative Plan: Pap/HPV due 01/2021 PCOS (polycystic ovarian syndrome) 07/30/2014 Oligomenorrhea 07/30/2014 Right lower quadrant pain 07/30/2014 Anxiety 06/30/2014 Overview: Not on meds Depression 06/30/2014 Establishing care with new doctor, encounter for 06/30/2014 Infertility 06/30/2014 Insomnia 06/30/2014 Migraine 06/30/2014 Nausea 06/30/2014 Nicotine use disorder 06/30/2014 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 Overview: [place] [facility] Agoraphobia with [...] Encounters Date Type Department Care Team Description 04/23/2024 Lab Requisition [facility] [phone] Calin Arango MD 04/01/2024 3:30 PM CDT Office Visit [address] [place] [address] Calin Alvarenga PsyD, LP Individual Therapy 04/01/2024 Travel 03/27/[address] [place] [address] Calin Alvarenga PsyD, HALIE Appointment 03/25/2024 2:30 PM CDT Office Visit [address] [place] [address] Calin Alvarenga PsyD, LP Individual Therapy 03/25/2024 Travel 03/14/2024 5:30 PM CDT Office Visit [address] [place] [address] Calin Alvarenga PsyD, LP Individual Therapy 03/14/2024 Travel 03/07/2024 5:30 PM CDT Office Visit [address] [place] [address] Calin Alvarenga PsyD, LP Individual Therapy 03/07/2024 Travel 02/28/2024 8:00 AM CDT Telemedicine [address] [place] [address] Calin Alvarenga PsyD, HALIE Telehealth; Individual Therapy 02/27/[address] [place] [address] Calin Alvarenga PsyD, HALIE Mental Health Issue 02/19/2024 5:30 PM CDT Office Visit [address] [place] [address] Calin Alvarenga PsyD, LP Individual Therapy 02/19/2024 Travel 02/14/2024 1:50 PM CDT - 02/14/2024 6:17 PM CDT Emergency [address] [place] [address] Ari Calix MD Intractable migraine without status migrainosus, unspecified migraine type (Primary Dx) Discharge Disposition: Home Self Care 02/13/2024 4:30 PM CDT Office Visit [facility] [address] [place] [address] Calin Alvarenga, PsBarbie, LP Individual Therapy 02/13/2024 Travel from Last 3 Months Immunizations Name [...] Additional history exists Tetanus booster 05/03/2021 05/03/2011 COVID-19 vaccine series ( season) 2023 Influenza for age 9-49 06/23/2024 7, 07/27/2016, 08/30/2013, Additional history exists Depression screening for age 12+ 04/01/2025 04/01/2024, 03/25/2024, 03/14/2024, Additional history exists Pap test for age 21-65 04/23/2027 , 05/02/2019, 05/02/2019, Additional history exists Tdap Completed 05/03/2011 HIV for age 15-65 Completed 01/30/2018 Pneumococcal series for age 6-64 Aged Out No longer eligible based on patient's age to complete this topic Procedures Procedure Name Priority Date/Time Associated Diagnosis Comments LAB TRACKING EVENT Routine 04/23/2024 8: 45 AM CDT BLANKING MACHINE OPERATOR THIN PREP PAP SCREEN IMAGED- Unsuccessful Attempt Routine 04/23/2024 8:45 AM CDT HPV THIN PREP Routine 04/23/2024 8:[address] HEAD BRAIN WO STAT 02/14/2024 2:47 PM CDT EKG 12 LEAD STAT 02/14/2024 2:01 PM CDT ANTI HIV 1/2 Routine 01/30/2018 2:45 PM CDT STD exposure from Last 3 Months or Most Recently Relevant to Health Maintenance Results * LAB TRACKING EVENT (04/23/2024 8:45 AM CDT) Other (Other) Client Collect / Unknown 04/23/2024 8:45 AM CDT 04/23/2024 10:01 PM CDT Calin Arango MD LAB BILL ONLY [facility]-CENTRAL LABORATORY [address] [place] [address], * BLANKING MACHINE OPERATOR THIN PREP PAP SCREEN IMAGED (04/23/2024 8:45 AM CDT) - Unsuccessful Attempt Case Report Gynecologic Cytology Report ? Case: [id number] ? Authorizing Provider: ??Calin Arango MD ??Collected: ? 04/23/2024 0845 ? Ordering Location: ? [facility] ?Received: ?04/24/2024 1212 ? First Screen: ?Baccam, Minie ? Rescreen: ?Notermann, Pat ? Specimen: ?BLANKING MACHINE OPERATOR ThinPrep Vial Screening, Cervical ? 05/01/2024 8:45 AM CDT [facility] ENTRAL LABORATORY INTERPRETATION /RESULT UNSATISFACTORY FOR EVALUATION (UNS) (none) 05/01/2024 8:45 AM T [facility] LABOR[facility] IMEN ADEQUACY Specimen processed and examined, but unsatisfactory for evaluation of epithelial abnormality because of: Scant cellularity 05/01/2024 8:45 AM CDT [facility] HPV REQUEST HPV and PAP 05/01/2024 8:45 AM T [facility] ENTRAL LABORATORY Date of LMP 04/09/2024 05/01/2024 8:45 AM CDT [facility] ENTRAL LABORATORY Last Pap Date 05/02/2019 05/01/2024 8:45 AM T [facility] ENTRSD LABORATORY Last Pap Result NIL 05/01/2024 8:45 AM CDT [facility] Abnormal Pap or [place] Bx in last 5 years No 05/01/2024 8:45 AM CDT [facility] ENTRAL LABORATORY [place] Bx Done Today No 05/01/2024 8:45 AM T [facility] Additional Information 05/01/2024 8:45 AM [facility] ENTRSD LABORATORY Comment: Interpreted at [facility] Central Laboratory - [address], [place] [address] Automated Review Failed 05/01/2024 8:45 AM CDT [facility] Comment:Processing failed, m anual screening required. ThinPrep Imaging System, [employer] ANCILLARY TESTING BLANKING MACHINE OPERATOR HPV Ordered, Please see separate report 05/01/2024 8:45 AM T [facility] Note The pap test is a screening technique, not a diagnostic procedure. It is used primarily to screen for squamous cancers and precursor lesions. Published studies have shown that it is subject to both false negative and false positive results. The pap test should not be used as the sole means to diagnose or exclude pre-malignant and malignant lesions. 05/01/2024 8:45 AM CDT [facility] ENTRAL LAB[facility]AT[facility] Other (Cervical) 04/23/2024 8:45 AM CDT 04/24/2024 12:12 PM CDT Calin Arango MD PATHOLOGY/CYTOLO GY Performing Organization Address [facility] Co de Phone Number [facility] [address] [place] [address], * HPV HIGH RISK (04/23/2024 8:45 AM CDT) TYPE 16 Negative Negative 04/26/2024 5:25 PM CDT [facility] TRAL LABORATORY TYPE 18 Negative Negative 04/26/2024 5:25 PM CDT [facility] TRAL LABORATORY OTHER HIGH RISK TYPES Negative Negative 04/26/2024 5:25 PM CDT [facility] TRAL LABORAT[facility] Other (Cervical) 04/23/2024 8:45 AM CDT 04/24/2024 12:12 PM CDT Narrative [facility] - 04/26/2024 5:25 PM CDT HPV types 16, 18, 31, 33, 35, 39, 45, 51, 52, 56, 58, 59, 66 and 68 DNA were undetectable or below the pre-set threshold. Methodology: Visualnest Christopher 4800 HPV Test Calin Arango MD MICROBIOLOGY Performing Organization Address [facility] Co de Phone Number [facility] [address] [place] [address], [place] * CT HEAD BRAIN WO (02/14/2024 2:47 [...] EKG 12 LEAD (02/14/2024 2:01 PM CDT) Pathologist [facility] Interpretation Normal sinus rhythm Normal ECG No previous ECGs available BEYOND NOW Ventricular Rate 81 BPM BEYOND NOW Atrial Rate 81 BPM BEYOND NOW P-R Interval 158 ms BEYOND NOW QRS Duration 82 ms BEYOND NOW QT 376 ms BEYOND NOW QTc 436 ms BEYOND NOW P [place] 48 degrees BEYOND NOW R [place] 45 degrees BEYOND NOW T [place] 36 degrees BEYOND NOW 02/14/2024 2:01 PM CDT 02/14/2024 2:43 PM CDT Oswaldo Ed Triage EKG ORD Performing Organization Address [facility] Co de Phone Number BEYOND NOW [place], [place] * ANTI HIV 1/2 (01/30/2018 2:45 PM CDT) Pathologist [facility] HIV-1/HIV-2 ANTIBODY Non-Reacti ve Non-Reacti ve 01/30/2018 9:01 PM CDT [facility] Comment:HIV-1 p24 and HIV-1/ HIV-2 Ab not detected. Blood BLOOD SPECIMEN / Unknown Venipuncture / Unknown 01/30/2018 2:45 PM CDT 01/30/2018 2:46 PM CDT Calin Arango MD SEND OUTS [facility]-CENTRAL LABORATORY [address] [place] [address], from Last 3 Months or Most Recently [...] 2:03 PM 04/18/2017 7:30 PM Care Teams Press Secretary Relationship Specialty Start Date End Date Calin Arango MD [address] [place] [address] PCP - General Family Practice 07/10/20
--- OUTSIDE RECORDS SUMMARY | 2024-05-13 15:34 | XMS_ITS | Continuity of Care Document ---
Author Organization [facility] Address [address] [place] [address] Phone Care Team Providers Care Pharmacy Manager Name Role Phone Kaila BENJAMIN, PhD, Jag [...] Copied on Encounter [facility], [address], [place], [id number], [place] tel:[phone] [facility] No Information Kaila Rm. [facility], [address], [place], [address], [place]. tel:[phone] Office/Outpat ient Visit,New, Mod [facility], [address], [place], [place], [id number], [place] tel:[phone] [facility] No Information 1 Kaila Rm. [facility], [address], [place], [address], [place]. tel:[phone] Referring Provider: Calin Arango, [facility] [address] [place], [address]. tel:[phone] Family History Family Member Type Diagnosis Age At Onset No Information Payers Payer name Insurance type Covered libertarian ID Authoriza tion(s) No Information Social History [...]
[2024-05-13 16:43] LABS: Clue Cells <20% Clue Cells Seen (None Seen); Trichomonas No Trichomonas Seen (None Seen); Yeast No Yeast Seen (None Seen)
== END 2024-05-13 15:33 | disposition home or self-care (01) ==
LOC: FBOREF 15:32
PROVIDERS: PCP Family Medicine; Visit Provider Family Medicine
DX: N89.8 Other specified noninflammatory disorders of vagina (principal)
CPT/HCPCS: 87210

== ENCOUNTER 2024-05-27 12:52 | Emergency (ER) | payer OTHER, SELFPAY ==
[2024-05-27 13:01] VITALS: BP 107/74; PULSE 82; RESP 18; TEMP 37.6; O2SAT 98; BMI 26.6
--- NOTE | 2024-05-27 14:00 | ED.GENADULT ---
HPI - General Adult General Chief complaint: Anxiety Stated complaint: fatigue, nausea, anxiety Time Seen by Provider: 05/27/24 13:08 History of Present Illness HPI narrative: Not sleeping or eating for 3 weeks per patient has had a lot of traumatic events happen in this time, chest feels tight. Is able to drink and keep fluids down, but not able to eat. Patient does have a therapist- had a friend commit suicide, family issues and break up with significant other. Patient states she knows what a panic attack feels like, and chest tightness does not happen with her No thoughts of harming herself 39-year-old woman presenting to the emergency department with a number of concerns. Primary of which is to be able to sleep. Have been having significant trouble sleeping or last few weeks. She says her Klonopin is not even working anymore and so has not actually taken it for couple of days. She has been having recurrent episodes of feeling like her heart is racing and then it will feel like her throat is closing. She has been having trouble keeping down anything beyond basic liquids. Results in vomiting protein shakes or anything more substantial. Numerous stressors also in the setting of having a special needs child. Does endorse a history of evening attacks of anxiety that were treated with Xanax but subsequently due to other medical concerns was switched from that to Klonopin. Symptoms seem to go back at least a couple of years but flaring again over the last 3 weeks. Has had extensive gastrointestinal workup around 2 years ago and there was some concern of ulcers. She says she has had numerous endoscopies and colonoscopies. Reports a history of rhabdomyolysis and elevated creatinine with similar events, inability to maintain oral intake, in the past. Offers later in conversation that she believes she is coming to the end of a period of rosy in the setting of bipolar diagnosis. Related Data Home Medications ?Medication ?Instructions ?Recorded ?Confirmed Cannabinoids 08/05/22 05/27/24 Previous Rx's ?Medication ?Instructions ?Recorded sumatriptan succinate 6 mg/0.5 mL 6 mg (0.5 mL) subcut Q1-4H PRN 11/28/22 subcutaneous pen injector (Imitrex migraine headache #2 mL STATdose Pen) meloxicam 15 mg tablet 15 mg PO QDAY #90 tabs 09/13/23 minocycline 100 mg capsule 200 mg (2 x 100 mg) PO QDAY #180 09/13/23 caps valacyclovir 1 gram tablet 1,000 mg PO DAILY #90 tabs 12/11/23 citalopram 20 mg tablet 20 mg PO QDAY #30 tabs 02/27/24 lamotrigine 100 mg tablet 100 mg PO BID #60 tabs 02/27/24 (Lamictal) methocarbamol 500 mg tablet 500 mg PO QHS #7 tabs 04/16/24 clonazepam 1 mg tablet 0.5 - 1 mg (0.5 - 1 x 1 mg) PO BID 04/18/24 PRN anxiety #40 tabs dextroamphetamine-amphetamine 15 15 mg PO BID #60 tabs 04/18/24 mg tablet (Adderall) Allergies Allergy/AdvReac Type Severity Reaction Status Date / Time tramadol Allergy Unknown Verified 05/13/24 14:48 Guinea pig epithelium Allergy Unknown Uncoded 05/13/24 14:48 seasons Allergy Uncoded 05/13/24 14:48 Review of Systems Status of ROS: Reports: 6 or more systems reviewed and unremarkable except as noted in History and below [facility] Medical History Rhabdomyolysis ?M62.82 - Rhabdomyolysis (ICD-10) Dysuria ?R30.0 - Dysuria (ICD-10) Bipolar 2 disorder ?F31.81 - Bipolar II disorder (ICD-10) Major depression, recurrent ?F33.9 - Major depressive disorder, recurrent, unspecified (ICD-10) 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) ?M26.609 - Unspecified temporomandibular joint disorder, unspecified side (ICD-10) Restless legs syndrome ?G25.81 - Restless legs syndrome (ICD-10) Posttraumatic stress disorder (10/05/18) ?F43.10 - Post-traumatic stress disorder, unspecified (ICD-10) Polycystic ovary syndrome ?E28.2 - Polycystic ovarian syndrome (ICD-10) Migraine ?G43.909 - Migraine, unspecified, not intractable, without status migrainosus (ICD-10) Irritable bowel syndrome with diarrhea ?K58.0 - Irritable bowel syndrome with diarrhea (ICD-10) Hyperhidrosis of axilla ?L74.510 - Primary focal hyperhidrosis, axilla (ICD-10) History of insulin resistance ?Z86.39 - Personal history of other endocrine, nutritional and metabolic disease (ICD-10) History of herpes simplex infection ?Z86.19 - Personal history of other infectious and parasitic diseases (ICD-10) Generalized anxiety disorder with panic attacks ?F41.1 - Generalized anxiety disorder (ICD-10) ?F41.0 - Panic disorder [episodic paroxysmal anxiety] (ICD-10) Gastroesophageal reflux disease ?K21.9 - Gastro-esophageal reflux disease without esophagitis (ICD-10) Cervical intraepithelial neoplasia grade 1 ?N87.0 - Mild cervical dysplasia (ICD-10) 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) ?F98.8 - Other specified behavioral and emotional disorders with onset usually occurring in childhood and adolescence (ICD-10) Acute gastric ulcer without hemorrhage or perforation (11/02/18) ?K25.3 - Acute gastric ulcer without hemorrhage or perforation (ICD-10) Surgical History History of tubal ligation ?Z98.51 - Tubal ligation status (ICD-10) Second branchial cleft cyst ?Q18.0 - Sinus, fistula and cyst of branchial cleft (ICD-10) Status post surgical removal of pilonidal cyst ?Z98.890 - Other specified postprocedural states (ICD-10) History of laparoscopy ?Z98.890 - Other specified postprocedural states (ICD-10) Family History Son Autism Social History Narrative: Medical marijuana use, Single, 1 son (Autism), 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, 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, social EtOH What is your current living situation?: I presently have a place to live Problems where you live: mold In the past 12 months, utilities in danger of being shut off: yes In past 12 months, lack of transportation kept you from medical appts, meetings, work, or getting things needed for daily living: no In the past 12 mos, have been you worried that your food would run out before you had money to buy more?: sometimes true In the past 12 mos, the food you bought just didn't last and you didn't have money to buy more?: sometimes true Smoking Status: Never smoker How often do you have a drink containing alcohol: monthly or less How many standard drinks containing alcohol do you have on a typical day: 1 or 2 AUDIT-C Alcohol total score: 1 Non-prescribed substance use: marijuana (any form) Non-prescribed substance use details: THC Caffeine: Yes How often does anyone, including family, friends and others, physically hurt you: never How often does anyone, including family, friends and others, insult or talk down to you: sometimes How often does anyone, including family, friends and others, threaten you with harm: never How often does anyone, including family, friends and others, scream or curse at you: never Little interest or pleasure in doing things: nearly every day Feeling down, depressed, or hopeless: nearly every day service: No Exam Narrative: Exam Narrative: Has been resting curled up on her right side in the bed. She is quickly tearful. Does appear quite stressed. She is breathing easily. There is no stridor. Lungs appear to be clear. Oropharynx is unremarkable other than some nicotine staining/hairy tongue. Neck is supple without bruits apparent swelling/lymphadenopathy. Heart in regular rate and rhythm without murmur or gallop. Abdomen is soft and generally mildly uncomfortable but no masses. No peritoneal signs. She is well-perfused peripherally without edema. Moving all extremities without difficulty. Const: Vital Signs, click to edit/add: Vital Signs - 24 hr 05/27/24 13:01 Temperature 99.7 F H Pulse Rate [Pulse Oximeter] 82 Respiratory Rate 18 Blood Pressure [Ri ght Upper Arm] 107/74 Pulse Oximetry 98 Oxygen Delivery Me thod Room Air Documenting provider has reviewed patient's vital signs: yes Course Vital Signs Vital signs: Initial Vital Signs Temperature 99.7 F H 05/27/24 13:01 Temperature Source Temporal Artery Scan 05/27/24 13:01 Pulse Rate 82 05/27/24 13:01 Respiratory Rate 18 05/27/24 13:01 Blood Pressure 107/74 05/27/24 13:01 Blood Pressure Mean 85 05/27/24 13:01 Blood Pressure Position Sitting 05/27/24 13:01 Pulse Oximetry 98 05/27/24 13:01 Oxygen Delivery Method Room Air 05/27/24 13:01 Vital Signs Temperature 99.7 F H 05/27/24 13:01 Pulse Rate 82 05/27/24 13:01 Respiratory Rate 18 05/27/24 13:01 Blood Pressure 107/74 05/27/24 13:01 Pulse Oximetry 98 05/27/24 13:01 Oxygen Delivery Method Room Air 05/27/24 13:01 Temperature 99.7 F H 05/27/24 13:01 Pulse Rate 82 05/27/24 13:01 Respiratory Rate 18 05/27/24 13:01 Blood Pressure 107/74 05/27/24 13:01 Pulse Oximetry 98 05/27/24 13:01 Oxygen Delivery Method Room Air 05/27/24 13:01 Medications Administered Medications: Discontinued Medications Generic Name Dose Route Start Last Admin Trade Name Freq PRN Reason Stop Dose Admin Sodium Chloride 1,000 mls @ 1,000 mls/hr 05/27/24 14:18 05/27/24 15:49 0.9 % Sodium Chloride 1000 Ml IV 05/27/24 15:17 Infused .Q1H ONE Infusion Lactated Ringer's 1,000 mls @ 1,000 mls/hr 05/27/24 15:35 05/27/24 15:48 Lactated Ringers 1000 Ml IV 05/27/24 16:34 1,000 mls/hr .Q1H ONE Administration Medical Decision Making MDM Narrative Medical decision making narrative: She is making tears. We can offer further hydration however. She does note historically that no anti medics work. Typically reporting steady dosing of benzodiazepine. I would anticipate hydrating. Check chemistries generally particularly due to repeated vomiting. Maybe a TSH. I wonder if would benefit from propranolol as an anxiolytic though she also notes a resting heart rate sometimes in the 30s. Further conversation reveals she believes she had been taking propranolol some point and was removed due to bradycardia. Anxiety does appear to be the primary issue here today. Reviewing records on last visit to [facility] was seen with daytime somnolence. Ary does have a follow-up with primary care provider tomorrow. Hydrated with IV fluids. Labs are reassuring. Appears more relaxed and comfortable. Will attempt to help with sleep temporarily. Zyprexa might be helpful with side effect of sedation. She does report that trazodone does not work. See patient discharge plan for further discussion Medical Records Medical records reviewed: Yes I reviewed the patient's medical records Lab Data Lab results reviewed: Yes I reviewed the patient's lab results Labs: Lab Results 05/27/24 05/27/24 Range/Units 14:37 15:02 WBC 8.43 (4.50-11.00) K/uL RBC 4.64 (4.00-5.20) m/uL Hgb 14.4 (12.0-16.0) gm/dL Hct 42.8 (33.0-51.0) % MCV 92 (80-100) fL MCH 31 (26-34) pg MCHC 34 (32-36) gm/dL RDW Coeff of Shira 12.7 (11.5-15.5) % Plt Count 458 H (140-440) K/uL Neut % (Auto) 67.4 (42.0-72.0) % Lymph % (Auto) 26.1 (20-44) % Spalding % (Auto) 5.3 (0.0-11.0) % Eos % (Auto) 0.9 (0.0-7.0) % Baso % (Auto) 0.2 (0.0-3.0) % Neut # (Auto) 5.67 (1.7-7.0) K/uL Lymph # (Auto) 2.20 (0.90-2.90) K/uL Spalding # (Auto) 0.40 (0.00-0.90) K/UL Eos # (Auto) 0.08 (0.00-0.50) K/uL Baso # (Auto) 0.02 (0.00-0.30) K/uL Abs Immat Gran (auto) 0.01 (0.00-0.30) K/uL Imm/Tot Granulo (auto) 0.1 % ESR 6 (2-20) mm/hr Sodium 137 (135-149) mmol/L Potassium 4.0 (3.6-5.1) mmol/L Chloride 107 (96-114) mmol/L Carbon Dioxide 22 (20-32) mmol/L Anion Gap 8 (7-15) mEq/L BUN 13 (5-24) mg/dL Creatinine 0.7 (0.5-1.5) mg/dL Estimated Creat Clear 94.10 Estimated GFR 113 ml/min Glucose 95 (60-115) mg/dL Calcium 9.2 (8.4-10.6) mg/dL Magnesium 2.2 (1.5-2.6) mg/dL Total Bilirubin 0.8 (0.1-1.5) mg/dL Direct Bilirubin 0.3 (0.0-0.5) mg/dL AST 26 (12-35) U/L ALT 28 (4-35) U/L Alkaline Phosphatase 44 (40-150) U/L C-Reactive Protein < 0.5 L (0.5-1.0) mg/dL Total Protein 7.1 (6.0-8.3) g/dL Albumin 4.4 (3.3-5.0) g/dL Lipase 76 (23-300) U/L TSH 0.783 (0.270-4.20) uIU/mL Urine Color Yellow (Yellow) Urine Appearance Clear (Clear) Urine pH 7.0 (5.0-8.5) Ur Specific Jupiter 1.020 (1.000-1.030) Urine Protein Negative (Negative) Urine Glucose (UA) Negative (Negative) Urine Ketones Trace A (Negative) Urine Blood Negative (Negative) Urine Nitrite Negative (Negative) Urine Bilirubin Negative (Negative) Urine Urobilinogen 0.2 (0.2-1.0) Ur Leukocyte Esterase Negative (Negative) Urine RBC 0-2 (0-2) Urine WBC 0-2 (0-5) Ur Squamous Epith Cells Moderate A (None-Few) Amorphous Sediment Moderate A (None) Urine Bacteria Few A (None) Ethyl Alcohol < 0.01 L (0.01-0.03) % SARS-CoV-2 (PCR) Negative SARS-CoV-2 (Negative) Influenza Type A (PCR) Negative PCR FLU A (Negative) Influenza Type B (PCR) Negative PCR FLU B (Negative) RSV (PCR) Negative PCR RSV (Negative) ECG Data Attestation: I personally reviewed and interpreted this ECG as follows: (Sinus bradycardia rate of 55) Discharge Plan Discharge Clinical Impression: Insomnia, Other social stressor, Anxiety Patient Disposition: Home, Self-Care Condition: Stable Instructions: Insomnia (ED), Anxiety (ED) Additional Instructions: I am happy to hear you have a follow-up with your primary care provider tomorrow. This olanzapine has added benefit of being a strong sedative and might be helpful for sleep in this regard. Might also try hydroxyzine for general flares of anxiety. Prescribed from [facility]. Prescriptions: No Action (DME) Cannabinoids 0 .ROUTE .MEDSUPPLY methocarbamol 500 mg tablet 500 mg PO QHS Qty: 7 0RF Hold Instructions: Doctor's Order sumatriptan succinate [Imitrex STATdose Pen] 6 mg/0.5 mL pen injector 6 mg subcut Q1-4H PRN (Reason: migraine headache) Qty: 2 5RF Rx Instructions: do not exceed 2 doses in a 24 hour period citalopram 20 mg tablet 20 mg PO QDAY Qty: 30 1RF lamotrigine [Lamictal] 100 mg tablet 100 mg PO BID Qty: 60 1RF meloxicam 15 mg tablet 15 mg PO QDAY Qty: 90 3RF minocycline 100 mg capsule 200 mg PO QDAY Qty: 180 1RF valacyclovir 1 gram tablet 1,000 mg PO DAILY Qty: 90 3RF dextroamphetamine-amphetamine [Adderall] 15 mg tablet 15 mg PO BID Qty: 60 0RF Rx Instructions: administer doses at least 4-6 hours apart clonazepam 1 mg tablet 0.5 - 1 mg PO BID PRN (Reason: anxiety) Qty: 40 0RF Follow Up/Referrals: Calin Arango MD [Primary Care Provider] - Stand Alone Forms: [employer] Info Instructions
[2024-05-27] MEDS: 0.9 % SODIUM CHLORIDE 1000 ml 1,000 ML IV (14:20)
--- OUTSIDE RECORDS SUMMARY | 2024-05-27 14:43 | XMS_ITS | Clinical Summary ---
Author Organization [facility] Address [place], [place] [address] Care Team Providers Care Batch Trucker Name Role Phone Calin Arango MD Primary [...] H GSIL 11/23/2015 Overview: 11/2015 ASCH 12/2015 [place]: BERRY 1 12/2016 NIL / HPV negative 01/2018 NIL/HPV negative Plan: Pap/HPV due 01/2021 PCOS (polycystic ovarian syndrome) 07/30/2014 Oligomenorrhea 07/30/2014 Right lower quadrant pain 07/30/2014 Anxiety 06/30/2014 Overview: Not on meds Depression 06/30/2014 Establishing care with new doctor, encounter for 06/30/2014 Infertility 06/30/2014 Insomnia 06/30/2014 Migraine 06/30/2014 Nausea 06/30/2014 Nicotine use disorder 06/30/2014 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 Overview: [place] [facility] Agoraphobia with [...] Encounters Date Type Department Care Team Description 05/26/2024 Travel 05/23/2024 Telephone [facility] [address] [place] [address] [place] [address] Calin Alvarenga PsyD, HALIE Appointment (Phone Call ) 05/14/2024 Lab Requisition [facility] [phone] Calin Arango MD 04/23/2024 Lab Requisition [facility] [phone] Calin Arango MD 04/01/2024 3:30 PM CDT Office Visit [address] [place] [address] Calin Alvarenga PsyD, HALIE Individual Therapy 04/01/2024 Travel 03/27/[address] [address] Calin Alvarenga PsyD, LP Appointment 03/25/2024 2:30 PM CDT Office Visit [address] [phone] Calin Alvarenga PsyD, HALIE Individual Therapy 03/25/2024 Travel 03/14/2024 5:30 PM CDT Office Visit [address] [phone] Calin Alvarenga PsyD, HALIE Individual Therapy 03/14/2024 Travel 03/07/2024 5:30 PM CDT Office Visit [address] [address] Calin Alvarenga PsyD, HALIE Individual Therapy 03/07/2024 Travel 02/28/2024 8:00 AM CDT Telemedicine [address] [address] Calin Alvarenga PsyD, HALIE Telehealth; Individual Therapy 02/27/[address] [address] Calin Alvarenga PsyD, HALIE Mental Health Issue from Last 3 Months Immunizations Name Administration [...] history exists Depression screening for age 12+ 05/27/2025 05/27/2024, 04/01/2024, 03/25/2024, Additional history exists Pap test for age 21-65 05/13/2027 , 05/13/2024, 04/23/2024, Additional history exists Tdap Completed 05/03/2011 HIV for age 15-65 Completed 01/30/2018 Pneumococcal series for age 6-64 Aged Out No longer eligible based on patient's age to complete this topic Procedures Procedure Name Priority Date/Time Associated Diagnosis Comments LAB TRACKING EVENT Routine 05/13/2024 3: 00 PM CDT OUTSIDE CUTTER THIN PREP PAP SCREEN IMAGED Routine 05/13/2024 3:00 PM CDT HPV THIN PREP Routine 05/13/2024 3:00 PM CDT LAB TRACKING EVENT Routine 04/23/2024 8: 45 AM CDT OUTSIDE CUTTER THIN PREP PAP SCREEN IMAGED- Unsuccessful Attempt Routine 04/23/2024 8:45 AM CDT HPV THIN PREP Routine 04/23/2024 8:45 AM CDT ANTI HIV 1/2 Routine 01/30/2018 2:45 PM CDT STD exposure from Last 3 Months or Most Recently Relevant to Health Maintenance Results * LAB TRACKING EVENT (05/13/2024 3:00 PM CDT) Only the most recent of2 resultswithin the time period is included. Other (Other) Client Collect / Unknown 05/13/2024 3:00 PM CDT 05/14/2024 1:18 PM CDT Calin Arango MD LAB BILL ONLY [facility] [address] [place] [address], * OUTSIDE CUTTER THIN PREP PAP SCREEN IMAGED (05/13/2024 3:00 PM CDT) Only the most recent of2 resultswithin the time period is included. Case Report Gynecologic Cytology Report ? Case: [id number] ? Authorizing Provider: ??Calin Arango MD ??Collected: ? 05/13/2024 1500 ? Ordering Location: ? [facility] ?Received: ?05/14/2024 1403 ? First Screen: ?Dom Friedman ? Specimen: ?OUTSIDE CUTTER ThinPrep Vial Screening, Cervical ? 05/21/2024 12:17 PM CDT [facility] ENTRAL LABORATORY INTERPRETATION/ RESULT NEGATIVE FOR INTRAEPITHELIAL LESION OR MALIGNANCY (NIL) (none) 05/21/2024 12:17 PM CDT [facility] IMEN ADEQUACY Satisfactory for evaluation Endocervical component present 05/21/2024 12:17 PM CDT [facility] HPV REQUEST HPV and PAP 05/21/2024 12:17 PM CDT [facility] Date of LMP 05/06/2024 05/21/2024 12:17 PM CDT [facility] Last Pap Date 05/02/2019 05/21/2024 12:17 PM CDT [facility] Last Pap Result NIL 12:17 PM CDT [facility] Abnormal Pap or [place] Bx in last 5 years No 05/21/2024 12:17 PM CDT [facility] Menstrual Status Regular Periods 05/21/2024 12:17 PM CDT [facility] [place] Bx Done Today No 05/21/2024 12:17 PM CDT [facility] Additional Information 05/21/2024 12:17 PM CDT [facility] Comment: Interpreted at [facility] - [address] [facility] [address], [place] [address] Automated Review Successful 05/21/2024 12:17 PM CDT [facility] Comment:Specimen processed s uccessfully by automated bookkeepers supervisor device, ThinPrep Imaging System, [employer] ANCILLARY TESTING OUTSIDE CUTTER HPV Ordered, Please see separate report 05/21/2024 12:17 PM CDT [facility] Note The pap test is a screening technique, not a diagnostic procedure. It is used primarily to screen for squamous cancers and precursor lesions. Published studies have shown that it is subject to both false negative and false positive results. The pap test should not be used as the sole means to diagnose or exclude pre-malignant and malignant lesions. 05/21/2024 12:17 PM CDT [facility] Other (Cervical) 05/13/2024 3:00 PM CDT 05/14/2024 2:03 PM CDT Calin Arango MD PATHOLOGY/CYTOLO GY [facility] [address] [place] [address], * HPV HIGH RISK (05/13/2024 3:00 PM CDT) Only the most recent of2 resultswithin the time period is included. TYPE 16 Negative Negative 05/17/2024 2:59 PM CDT [facility] TYPE 18 Negative Negative 05/17/2024 2:59 PM CDT [facility] OTHER HIGH RISK TYPES Negative Negative 05/17/2024 2:59 PM CDT [facility] Other (Cervical) 05/13/2024 3:00 PM CDT 05/14/2024 2:03 PM CDT Narrative [facility] - 05/17/2024 2:59 PM CDT HPV types 16, 18, 31, 33, 35, 39, 45, 51, 52, 56, 58, 59, 66 and 68 DNA were undetectable or below the pre-set threshold. Methodology: Tahir Christopher 4800 HPV Test Calin Arango MD MICROBIOLOGY [facility] [address] [place] [address], * ANTI HIV 1/2 (01/30/2018 2:45 PM CDT) Pathologist [facility] HIV-1/HIV-2 ANTIBODY Non-Reacti ve Non-Reacti ve 01/30/2018 9:01 PM CDT [facility] Comment:HIV-1 p24 and HIV-1/ HIV-2 Ab not detected. Blood BLOOD SPECIMEN / Unknown Venipuncture / Unknown 01/30/2018 2:45 PM CDT 01/30/2018 2:46 PM CDT Calin Arango MD SEND OUTS [facility] [address] [place] [address], from Last 3 Months or Most Recently [...] 2:03 PM 04/18/2017 7:30 PM Care Teams Batch Trucker Relationship Specialty Start Date End Date Calin Arango MD [address] [place] [address] PCP - General Family Practice 07/10/20
[2024-05-27 14:46] LABS: Basophils Absolute Auto 0.02 K/uL (0.00-0.30); Basophils Percent Auto 0.2 % (0.0-3.0); Eosinophils Absolute Auto 0.08 K/uL (0.00-0.50); Eosinophils Percent Auto 0.9 % (0.0-7.0); Hematocrit 42.8 % (33.0-51.0); Hemoglobin* 14.4 gm/dL (12.0-16.0); Immature Granulocytes Abs Auto 0.01 K/uL (0.00-0.30); Immature Granulocytes Pct Auto 0.1 %; Lymphocytes Percent Auto 26.1 % (20-44); Mean Corpuscular HGB Conc 34 gm/dL (32-36); Mean Corpuscular Hemoglobin 31 pg (26-34); Mean Corpuscular Volume 92 fL (80-100); Monocytes Percent Auto 5.3 % (0.0-11.0); Neutrophils Absolute Auto 5.67 K/uL (1.7-7.0); Neutrophils Percent Auto 67.4 % (42.0-72.0); Platelet Count* 458 K/uL (140-440); RDW Coefficient of Variation % 12.7 % (11.5-15.5); Red Blood Count 4.64 m/uL (4.00-5.20); White Blood Count* 8.43 K/uL (4.50-11.00)
[2024-05-27 15:02] LABS: Slide Review Reflex No
[2024-05-27 15:04] LABS: Albumin* 4.4 g/dL (3.3-5.0); Chloride* 107 mmol/L (96-114); Sodium* 137 mmol/L (135-149)
[2024-05-27 15:07] LABS: Creatinine* 0.7 mg/dL (0.5-1.5); Estimated Glomerular Filt Rate 113 ml/min
[2024-05-27 15:08] LABS: Alanine Aminotransferase* 28 U/L (4-35); Alkaline Phosphatase* 44 U/L (40-150); Anion Gap 8 mEq/L (7-15); Aspartate Amino Transferase* 26 U/L (12-35); Bilirubin Direct* 0.3 mg/dL (0.0-0.5); Bilirubin Total* 0.8 mg/dL (0.1-1.5); Blood Urea Nitrogen* 13 mg/dL (5-24); Calcium* 9.2 mg/dL (8.4-10.6); Carbon Dioxide* 22 mmol/L (20-32); Glucose* 95 mg/dL (60-115); Lipase* 76 U/L (23-300); Magnesium* 2.2 mg/dL (1.5-2.6); Total Protein* 7.1 g/dL (6.0-8.3)
[2024-05-27 15:11] LABS: C Reactive Protein* < 0.5 mg/dL (0.5-1.0); Ethanol* < 0.01 % (0.01-0.03)
[2024-05-27 15:22] LABS: Appearance Urine Clear (Clear); Bilirubin Urine Negative (Negative); Blood Urine Negative (Negative); Color Urine Yellow (Yellow); Glucose Urine Negative (Negative); Ketones Urine Trace (Negative); Leukocyte Esterase Urine Negative (Negative); Nitrite Urine Negative (Negative); Protein Urine Negative (Negative); Urobilinogen Urine 0.2 (0.2-1.0)
[2024-05-27 15:26] LABS: PCR FLU A Negative PCR FLU A (Negative); PCR FLU B Negative PCR FLU B (Negative); PCR RSV Negative PCR RSV (Negative); SARS PCR* Negative SARS-CoV-2 (Negative)
[2024-05-27] MEDS: LACTATED RINGERS 1000 ML 1,000 ML IV (15:48)
[2024-05-27 15:51] LABS: Amorphous Sediment Urine Moderate; Bacteria Urine Few; RBC Urine 0-2 (0-2); Squamous Epithelial Cell Urine Moderate (None-Few); WBC Urine 0-2 (0-5)
[2024-05-27 15:51] LABS: Thyroid Stimulating Hormone* 0.783 uIU/mL (0.270-4.20)
[2024-05-27 16:24] LABS: Erythrocyte SedimentationRate* 6 mm/hr (2-20)
== END 2024-05-27 16:52 | disposition home or self-care (01) ==
PROVIDERS: Emergency Provider Family Medicine; PCP Family Medicine
DX: F41.9 Anxiety disorder, unspecified (principal); G47.00 Insomnia, unspecified; F43.9 Reaction to severe stress, unspecified
CPT/HCPCS: 36415; 80048; 80076; 81001; 82077; 83690; 83735; 84443; 85025; 85651; 86140; 87086; 87186; 87631; 93005; 99284; J7030; J7120

== ENCOUNTER 2025-03-09 13:08 | Emergency (ER) | payer MEDICAID, SELFPAY ==
[2025-03-09 13:14] VITALS: BP 131/85; PULSE 92; RESP 16; TEMP 36.8; O2SAT 97; BMI 27.8
--- NOTE | 2025-03-09 13:23 | ED_ITS ---
HPI - General Adult General Time Seen by Provider: 13:23 Date Seen: 03/09/25 Chief complaint: Skin/Abscess/Foreign Body Stated complaint: infection on L calf Time Seen by Provider: 03/09/25 13:23 Source: patient and RN notes reviewed Mode of arrival: ambulatory Limitations: no limitations History of Present Illness HPI narrative: Ary is a very pleasant 40-year-old female with recent treatment for cellulitis with Keflex who comes to the emergency room with think creasing area of redness and firmness on her left leg. Patient noted that on Monday morning she woke with a lot of swelling in the left lower lateral leg. Thought perhaps it was a bug bite. She did see her primary doctor Nba at which time he prescribed Keflex. She states that the swelling which is much improved but now over the last 24 hours she has more redness although the area is smaller and firmness. She also complains of feeling feverish and having body aches. No history of MRSA in the past. Cannot recall being bit by a bug or any injury to this area. Related Data Home Medications ?Medication ?Instructions ?Recorded ?Confirmed Cannabinoids 08/05/22 03/09/25 Previous Rx's ?Medication ?Instructions ?Recorded cephalexin 500 mg tablet 500 mg PO TID #30 tabs 03/04/25 citalopram 40 mg tablet 40 mg PO QDAY #90 tabs 03/04/25 clonazepam 1 mg tablet 1 mg PO QHS #90 tabs 03/04/25 dextroamphetamine-amphetamine 30 15 mg (1/2 x 30 mg) PO BID #30 tabs 03/04/25 mg tablet (Adderall) hydroxyzine HCl 25 mg tablet 25 mg PO TID PRN anxiety #90 tabs 03/04/25 lamotrigine 150 mg tablet 150 mg PO BID #180 tabs 03/04/25 meloxicam 15 mg tablet 15 mg PO QDAY #90 tabs 03/04/25 sumatriptan succinate 6 mg/0.5 mL 6 mg (0.5 mL) subcut Q1-4H PRN 03/04/25 subcutaneous pen injector (Imitrex migraine headache #2 mL STATdose Pen) valacyclovir 1 gram tablet 1,000 mg PO DAILY #90 tabs 03/04/25 Allergies Allergy/AdvReac Type Severity Reaction Status Date / Time tramadol Allergy Unknown Verified 03/09/25 13:12 Guinea pig epithelium Allergy Unknown Uncoded 03/04/25 13:56 seasons Allergy Uncoded 03/04/25 13:56 Review of Systems Status of ROS: Reports: 6 or more systems reviewed and unremarkable except as noted in History and below [facility] Medical History Rhabdomyolysis ?M62.82 - Rhabdomyolysis (ICD-10) Dysuria ?R30.0 - Dysuria (ICD-10) Bipolar 2 disorder ?F31.81 - Bipolar II disorder (ICD-10) Major depression, recurrent ?F33.9 - Major depressive disorder, recurrent, unspecified (ICD-10) 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) ?M26.609 - Unspecified temporomandibular joint disorder, unspecified side (ICD-10) Restless legs syndrome ?G25.81 - Restless legs syndrome (ICD-10) Posttraumatic stress disorder (10/05/18) ?F43.10 - Post-traumatic stress disorder, unspecified (ICD-10) Polycystic ovary syndrome ?E28.2 - Polycystic ovarian syndrome (ICD-10) Migraine ?G43.909 - Migraine, unspecified, not intractable, without status migrainosus (ICD-10) Irritable bowel syndrome with diarrhea ?K58.0 - Irritable bowel syndrome with diarrhea (ICD-10) Hyperhidrosis of axilla ?L74.510 - Primary focal hyperhidrosis, axilla (ICD-10) History of insulin resistance ?Z86.39 - Personal history of other endocrine, nutritional and metabolic disease (ICD-10) History of herpes simplex infection ?Z86.19 - Personal history of other infectious and parasitic diseases (ICD- 10) Generalized anxiety disorder with panic attacks ?F41.1 - Generalized anxiety disorder (ICD-10) ?F41.0 - Panic disorder [episodic paroxysmal anxiety] (ICD-10) Gastroesophageal reflux disease ?K21.9 - Gastro-esophageal reflux disease without esophagitis (ICD-10) Cervical intraepithelial neoplasia grade 1 ?N87.0 - Mild cervical dysplasia (ICD-10) 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) ?F98.8 - Other specified behavioral and emotional disorders with onset usually occurring in childhood and adolescence (ICD-10) Acute gastric ulcer without hemorrhage or perforation (11/02/18) ?K25.3 - Acute gastric ulcer without hemorrhage or perforation (ICD-10) Surgical History History of tubal ligation ?Z98.51 - Tubal ligation status (ICD-10) Second branchial cleft cyst ?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.0 - Sinus, fistula and cyst of branchial cleft (ICD-10) Status post surgical removal of pilonidal cyst ?Z98.890 - Other specified postprocedural states (ICD-10) History of laparoscopy ?Z98.890 - Other specified postprocedural states (ICD-10) Family History Son Autism Social History Narrative: Medical marijuana use, Single, 1 son (Autism), 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, 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, social EtOH What is your current living situation?: I presently have a place to live Problems where you live: mold In the past 12 months, utilities in danger of being shut off: no In past 12 months, lack of transportation kept you from medical appts, meetings, work, or getting things needed for daily living: yes In the past 12 mos, have been you worried that your food would run out before you had money to buy more?: never true In the past 12 mos, the food you bought just didn't last and you didn't have money to buy more?: sometimes true Smoking Status: Never smoker How often do you have a drink containing alcohol: monthly or less How many standard drinks containing alcohol do you have on a typical day: 1 or 2 AUDIT-C Alcohol total score: 1 Non-prescribed substance use: marijuana (any form) Non-prescribed substance use details: THC Caffeine: Yes How often does anyone, including family, friends and others, physically hurt you : never How often does anyone, including family, friends and others, insult or talk down to you: sometimes How often does anyone, including family, friends and others, threaten you with harm: never How often does anyone, including family, friends and others, scream or curse at you: rarely service: No Health Related Social Needs: Inadequate housing (Z59.1), food insecurity (Z59.41), transportation insecurity (Z59.82) and Other personal risk factors, not elsewhere classified (Z91.89) Exam Narrative: Exam Narrative: Alert and oriented. No acute distress. Does appear fatigued but nontoxic. Eyes are clear. Moist mucous membranes. Heart with regular rate and rhythm lungs are clear oral cavity without significant erythema in the posterior oropharynx. Neck is supple. Heart with regular rate and rhythm and lungs are clear. Abdomen soft nontender. Examination of the left lower leg shows a quarter-sized area of erythema within that is a nickel sized area that is raised and firm. It is not excessively warm to the touch but it is very tender. Const: Vital Signs, click to edit/add: Vital Signs - 24 hr 03/09/25 13:14 Temperature 98.3 F Pulse Rate [Pulse Oximeter] 92 Respiratory Rate 16 Blood Pressure [Ri ght Upper Arm] 131/85 Pulse Oximetry 97 Oxygen Delivery Me thod Room Air Documenting provider has reviewed patient's vital signs: yes Course Course ED Course: Differential diagnosis includes but is not limited to injury did skin secondary to insect bite, abscess. This is not in the area where I would be worried about thrombophlebitis or DVT. Will attempt ultrasound of this area and I&D if needed. Reevaluation(s) Reevaluation #1: Ultrasound showed questionable compressible area of abscess. It is not excessively large however. I discuss risks benefits incision and drainage in this situation and patient would like to proceed. Informed consent signed. Area was cleansed with alcohol wipe x2. 1% lidocaine with epinephrine was infused in the area. 6 mm incision was made and just be on the dermis purulent thick substance began to drain. We did take a culture of this area. Incision extended superiorly as the wound was explored and there was open area of purulent cottage cheese like drainage. Patient tolerated procedure well. Vital Signs Vital signs: Initial Vital Signs Temperature 98.3 F 03/09/25 13:14 Temperature Source Temporal Artery Scan 03/09/25 13:14 Pulse Rate 92 03/09/25 13:14 Respiratory Rate 16 03/09/25 13:14 Blood Pressure 131/85 03/09/25 13:14 Blood Pressure Mean 100 03/09/25 13:14 Pulse Oximetry 97 03/09/25 13:14 Oxygen Delivery Method Room Air 03/09/25 13:14 Vital Signs Temperature 98.3 F 03/09/25 13:14 Pulse Rate 92 03/09/25 13:14 Respiratory Rate 16 03/09/25 13:14 Blood Pressure 131/85 03/09/25 13:14 Pulse Oximetry 97 03/09/25 13:14 Oxygen Delivery Method Room Air 03/09/25 13:14 Temperature 98.3 F 03/09/25 13:14 Pulse Rate 92 03/09/25 13:14 Respiratory Rate 16 03/09/25 13:14 Blood Pressure 131/85 03/09/25 13:14 Pulse Oximetry 97 03/09/25 13:14 Oxygen Delivery Method Room Air 03/09/25 13:14 Medical Decision Making MDM Narrative Medical decision making narrative: 1. Abscess-patient has no history of MRSA but certainly this was purulent type of drainage expressed from the wound on her left leg. Culture been accomplished. Will have her discontinue Keflex and switch her over to doxycycline for MRSA coverage. 2. Body aches-patient has no fever normal pulse reassuring white count and normal CRP. I do not think that this small area was causing her other symptoms. I am wondering if she baby is coming down with another virus although she did test negative for COVID/influenza and RSV here. 3. Disposition-home at this time. Return for worsening symptoms. Wound care- would like her to try to keep this wound open so continues to drain. Would ask that he keep it covered if working. She may cleansed twice a day. She should return as needed for worsening symptoms especially fever vomiting and as needed. Medical Records Medical records reviewed: Yes I reviewed the patient's medical records Lab Data Lab results reviewed: Yes I reviewed the patient's lab results Labs: Lab Results 03/09/25 03/09/25 Range/Units 13:58 14:23 WBC 8.91 (4.50-11.00) K/uL RBC 4.18 (4.00-5.20) m/uL Hgb 12.7 (12.0-16.0) gm/dL Hct 37.9 (33.0-51.0) % MCV 91 (80-100) fL MCH 30 (26-34) pg MCHC 34 (32-36) gm/dL RDW Coeff of Shira 13.5 (11.5-15.5) % Plt Count 456 H (140-440) K/uL Neut % (Auto) 56.8 (42.0-72.0) % Lymph % (Auto) 34.2 (20-44) % [place] % (Auto) 6.7 (0.0-11.0) % Eos % (Auto) 1.9 (0.0-7.0) % Baso % (Auto) 0.3 (0.0-3.0) % Neut # (Auto) 5.05 (1.7-7.0) K/uL Lymph # (Auto) 3.05 H (0.90-2.90) K/uL [place] # (Auto) 0.60 (0.00-0.90) K/UL Eos # (Auto) 0.17 (0.00-0.50) K/uL Baso # (Auto) 0.03 (0.00-0.30) K/uL Abs Immat Gran (auto) 0.01 (0.00-0.30) K/uL Imm/Tot Granulo (auto) 0.1 % Sodium 138 (135-149) mmol/L Potassium 3.8 (3.6-5.1) mmol/L Chloride 105 (96-114) mmol/L Carbon Dioxide 28 (20-32) mmol/L Anion Gap 5 L (7-15) mEq/L BUN 15 (5-24) mg/dL Creatinine 0.8 (0.5-1.5) mg/dL Estimated Creat Clear 81.53 Estimated GFR 96 ml/min Glucose 81 (60-115) mg/dL Calcium 9.2 (8.4-10.6) mg/dL C-Reactive Protein < 0.5 L (0.5-1.0) mg/dL SARS-CoV-2 (PCR) Negative SARS-CoV-2 (Negative) Influenza Type A (PCR) Negative PCR FLU A (Negative) Influenza Type B (PCR) Negative PCR FLU B (Negative) RSV (PCR) Negative PCR RSV (Negative) Discharge Plan Discharge Clinical Impression: Abscess Patient Disposition: Home, Self-Care Condition: Improved Additional Instructions: Suggest discontinuing Keflex and started on doxycycline at this cover is a broader spectrum of bacteria. We will have to await the culture to know what bacteria this might be. Commend cleansing the area of the incision twice daily. Do not place bacitracin. Note for work that you were seen today. Follow-up with Dr. Arango if not improving. Return to the ED if you are experiencing fever vomiting or chills. Prescriptions: No Action (DME) Cannabinoids 0 .Route .MEDSUPPLY cephalexin 500 mg tablet 500 mg PO TID Qty: 30 0RF meloxicam 15 mg tablet 15 mg PO QDAY Qty: 90 3RF sumatriptan succinate [Imitrex STATdose Pen] 6 mg/0.5 mL pen injector 6 mg subcut Q1-4H PRN (Reason: migraine headache) Qty: 2 5RF Rx Instructions: do not exceed 2 doses in a 24 hour period valacyclovir 1 gram tablet 1,000 mg PO DAILY Qty: 90 3RF lamotrigine 150 mg tablet 150 mg PO BID Qty: 180 3RF citalopram 40 mg tablet 40 mg PO QDAY Qty: 90 3RF clonazepam 1 mg tablet 1 mg PO QHS Qty: 90 1RF hydroxyzine HCl 25 mg tablet 25 mg PO TID PRN (Reason: anxiety) Qty: 90 2RF dextroamphetamine-amphetamine [Adderall] 30 mg tablet 15 mg PO BID Qty: 30 0RF Follow Up/Referrals: Calin Arango MD [Primary Care Provider] - Stand Alone Forms: [employer] Info Instructions
[2025-03-09 14:29] LABS: Basophils Absolute Auto 0.03 K/uL (0.00-0.30); Basophils Percent Auto 0.3 % (0.0-3.0); Eosinophils Absolute Auto 0.17 K/uL (0.00-0.50); Eosinophils Percent Auto 1.9 % (0.0-7.0); Hematocrit 37.9 % (33.0-51.0); Hemoglobin* 12.7 gm/dL (12.0-16.0); Immature Granulocytes Abs Auto 0.01 K/uL (0.00-0.30); Immature Granulocytes Pct Auto 0.1 %; Lymphocytes Absolute Auto 3.05 K/uL (0.90-2.90); Lymphocytes Percent Auto 34.2 % (20-44); Mean Corpuscular HGB Conc 34 gm/dL (32-36); Mean Corpuscular Hemoglobin 30 pg (26-34); Mean Corpuscular Volume 91 fL (80-100); Monocytes Percent Auto 6.7 % (0.0-11.0); Neutrophils Absolute Auto 5.05 K/uL (1.7-7.0); Neutrophils Percent Auto 56.8 % (42.0-72.0); Platelet Count* 456 K/uL (140-440); RDW Coefficient of Variation % 13.5 % (11.5-15.5); Red Blood Count 4.18 m/uL (4.00-5.20); White Blood Count* 8.91 K/uL (4.50-11.00)
[2025-03-09 14:41] LABS: Slide Review Reflex No
[2025-03-09 14:43] LABS: PCR FLU A Negative PCR FLU A (Negative); PCR FLU B Negative PCR FLU B (Negative); PCR RSV Negative PCR RSV (Negative); SARS PCR* Negative SARS-CoV-2 (Negative)
[2025-03-09 15:09] LABS: Chloride* 105 mmol/L (96-114); Sodium* 138 mmol/L (135-149)
[2025-03-09 15:10] LABS: Potassium* 3.8 mmol/L (3.6-5.1)
[2025-03-09 15:13] LABS: Anion Gap 5 mEq/L (7-15); Blood Urea Nitrogen* 15 mg/dL (5-24); Calcium* 9.2 mg/dL (8.4-10.6); Carbon Dioxide* 28 mmol/L (20-32); Creatinine* 0.8 mg/dL (0.5-1.5); Est. Creatinine Clearance* 81.53; Estimated Glomerular Filt Rate 96 ml/min; Glucose* 81 mg/dL (60-115)
[2025-03-09 15:16] LABS: C Reactive Protein* < 0.5 mg/dL (0.5-1.0)
[2025-03-09 15:55] VITALS: BP 137/55; PULSE 65; RESP 18; TEMP 36.7; O2SAT 99
--- OUTSIDE RECORDS SUMMARY | 2025-03-09 17:48 | XMS_ITS | Clinical Summary ---
Author Organization [facility] Address [address] [place] [id number] Care Team Providers Care Engraver Wood Name Role Phone Calin Arango MD Primary Care Provider + Allergies Active Allergy Reactions Criticality Noted Date Comments Nsaids (Non-Steroidal Anti-I nflammatory Drug) GI Upset 12/26/2020 Tramadol Hives 07/16/2009 Medications SUMAtriptan (IMITREX) 6 mg/0.5 mL crtgIndications :Migraine syndrome Inject 6 mg subcutaneous 2 times daily if needed for Migraine. Give at minimum 2hrs apart. Max Dose: 12 mg in 24 hours. 1 Kit 1 9 Active valACYclovir (VALTREX) 500 mg tablet Take 1,000 mg by mouth once daily. Active clonazePAM (KLONOPIN) 1 mg tablet TAKE 1/2 TO 1 TABLET BY MOUTH TWICE DAILY NEEDED FOR ANXIETY 2 Active metoprolol succinate (TOPROL XL) 50 mg sustained-relea se tablet Take 50 mg by mouth once daily. 2 Active metFORMIN (GLUCOPHAGE XR) 750 mg Extended-Releas e tablet Take 1,500 mg by mouth once daily. 3 Active prochlorperazin e (COMPAZINE) 10 mg tablet Take 10 mg by mouth 3 times daily if needed for Nausea/Vomiting. Active methylPREDNISol one (MEDROL DOSEPAK) 4 mg tabletIndicatio ns:Chronic bilateral low back pain, unspecified whether sciatica present Take by mouth as instructed per packaging. 21 Tablet 3 Active lidocaine 5 % topical patchIndication s:Chronic bilateral low back pain, unspecified whether sciatica present Apply to intact skin to cover most painful area for max 12hr per 24hr period. 30 Patch 3 Active gabapentin (NEURONTIN) 300 mg capsuleIndicati ons:Chronic bilateral low back pain, unspecified whether sciatica present Take 1 Capsule (300 mg) by mouth at bedtime. 7 Capsule 3 Active lidocaine 5 % topical patchIndication s:Sciatica, unspecified laterality Apply to intact skin to cover most painful area for max 12hr per 24hr period. 14 Patch 3 Active HYDROcodone-naty taminophen (5-325 mg/tablet)Indic ations:Sciatica , unspecified laterality Take 1 Tablet by mouth every 4 hours if needed for Pain. Max acetaminophen dose: 4000 mg in 24 hrs. 10 Tablet 3 Active crutchIndicatio ns:Closed displaced fracture of distal phalanx of right great toe, initial encounter For home use. 2 Each 3 Active lamoTRIgine (LAMICTAL) 100 mg tablet Take 100 mg by mouth two times daily. 4 Active meloxicam 15 mg tablet Take 15 mg by mouth once daily. 4 Active dextroamphetami ne-amphetamine (ADDERALL XR) 20 mg Extended-Releas e capsule Take 20 mg by mouth every morning. 4 Active benzonatate (TESSALON) 200 mg capsuleIndicati ons:Acute cough Take 1 Capsule (200 mg) by mouth 3 times daily if needed for Cough. 21 Capsule 4 Active albuterol HFA (PRO-AIR; VENTOLIN; PROVENTIL) 90 mcg/actuation inhalerIndicati ons:Acute cough,SOB (shortness of breath) Inhale 2 Puffs by mouth every 4 hours if needed for Shortness Of Breath. 18 g 4 Active OLANzapine 5 mg tabletIndicatio ns:Gastroenteri tis Take 1 Tablet (5 mg) by mouth 2 times daily if needed (nausea/vomiting/ abdominal pain). 6 Tablet 5 Active Active Problems Problem Noted Date Diagnosed [...] with ASCUS, cannot exclude H GSIL 11/23/2015 Overview (02/14/2018): 11/2015 [facility] 12/2015 [place]: BERRY 1 12/2016 NIL / HPV negative 01/2018 NIL/HPV negative Plan: Pap/HPV due 01/2021 PCOS (polycystic ovarian syndrome) 07/30/2014 Oligomenorrhea 07/30/2014 Right lower quadrant pain 07/30/2014 Anxiety 06/30/2014 Overview (03/07/2022): Not on meds Depression 06/30/2014 Establishing care with new doctor, encounter for 06/30/2014 Infertility 06/30/2014 Insomnia 06/30/2014 Migraine 06/30/2014 Nausea 06/30/2014 Nicotine use disorder 06/30/2014 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 Overview (07/17/2013): [place] [facility] Agoraphobia with panic disorder 05/02/2013 Adjustment disorder with mixed anxiety and depre ssed mood 05/02/2013 Generalized anxiety disorder 01/15/2013 IBS (irritable bowel syndrome) Pilonidal cyst without abscess Diarrhea Resolved Problems Problem Noted Date Diagnosed Date Resolved Date Controlled substance agreement signed 04/18/2018 10/05/2018 Overview (04/18/2018): Signed 04/18/18 Dr Candis Kearney Psychiatry Post-trauma response 03/21/201810/05/ 018 Bilateral kidney stones 10/12/201509/22 ADD (attention deficit disorder) 06/18/2011 10/05/2018 Allergic rhinitis 06/18/2011 10/05/2018 Issue of repeat prescriptions 05/25/2011 10/05/2018 Overview (05/25/2011): IBS - taking Percocet and Ansaid Encounters Date Type Department Care Team Description 02/14/2025 7:54 PM CDT - 02/14/2025 9:[address] [facility] [address] [place] [address] Ester Nelson PA Gastroenteritis (Primary Dx) Discharge Disposition: Home Self Care 02/14/2025 Travel 02/11/2025 8:45 AM CDT - 02/11/2025 12:[address] [facility] [address] [place] [address] Adrián Farrell DO Abdominal pain, unspecified abdominal location (Primary Dx); Vaginal bleeding Discharge Disposition: Home Self Care 02/11/2025 Travel from Last 3 Months Immunizations Immunization Administration Dates Next Due DT (Age < [...] Answer Date Recorded PHQ-2 TOTAL SCORE 6 05/26/2024 Social Connections Answer Date Recorded Frequency of Communication with Friends and Fami ly Not on file 01/30/2023 Interpersonal Safety Answer Date Record ed Are you being hit, kicked, p ushed or yelled at (see row info)? 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 Not on file Not on file [employer] Not on file Not on file Not on fi le Obstetrics History Para Term AB IAB SAB Ectopic Multiple Livin g Live Births 1 Date Outcome GA Total Labor Labor/2nd/3rd Weight Sex Type Anes PTL Rosario A1 A5 Name Clin Term Last Filed Vital Signs Vital Sign Reading Time Taken Comments Blood Pressure 126/93 02/14/2025 7:41 PM CDT Pulse 86 02/14/2025 7:41 PM CDT Temperature 36.8 C (98.3 F) 02/14/2025 7:41 PM CDT Respiratory Rate 18 02/14/2025 7:41 PM CDT Oxygen Saturation 98% 02/14/2025 7:41 PM CDT Inhaled Oxygen Concentration - - Weight 73.8 kg (162 lb 12.8 oz) 02/14/2025 9:44 PM CDT Height 162.6 cm (5' 4) 02/14/2025 9:44 PM CDT Body Mass Index 27.94 02/14/2025 9:44 PM CDT Plan of Treatment Health Maintenance Due Date Last Done Comments Hepatitis C screening for ag e 18-79 01/13/2004 Pneumococcal series for age 6-49 (1 of 2 - PCV) 2005 BMI (ht and wt on same day) for age 18+ 06/07/2020 06/07/2019, 05/17/2019, 05/14/2019, Additional history exists Tetanus booster 05/03/2021 05/03/2011 COVID-19 vaccine series ( - season) 2024 Depression screening for age 12+ 05/26/2025 05/26/20 24 Influenza Vaccine (Season Ended) 2025 07/21/2017, 07/27/2016, 08/30/2013, Additional history exists Pap test for age 21-65 05/13/2027 , 05/13/2024, 04/23/2024, Additional history exists Tdap Completed 05/03/2011 HIV for age 15-65 Completed 01/30/2018 Procedures Procedure Name Priority Date/Time Associated Diagnosis Comments CBC WITH AUTO DIFFERENTIAL STAT 02/14/2025 8:29 PM CDT LIPASE STAT 02/14/2025 8:29 PM CDT HEPATIC FUNCTION PANEL STAT 02/14/2025 8:29 PM CDT BASIC METABOLIC PANEL STAT 02/14/2025 8:29 PM CDT CBC WITH AUTO DIFFERENTIAL STAT 02/14/2025 8:[address] ABDOMEN PELVIS W STAT 02/11/2025 1 1:31 AM CDT UA W/ SEDIMENT EXAM REFLEXED PER CRITERIA STAT 02/11/2025 10:38 AM CDT US PELVIS COMPLETE TA AND TV STAT 02/11/2025 10:22 AM CDT TYPE & SCREEN STAT 02/11/2025 9:26 AM CDT ,SERUM QUALITATIVE STAT 02/11/2025 9:26 AM CDT BASIC METABOLIC PANEL STAT 02/11/2025 9:26 AM CDT CBC W PLT NO DIFF STAT 02/11/2025 9:2 6 AM CDT DESIGN SALES CONSULTANT THIN PREP PAP SCREEN IMAGED Routine 05/13/2024 3:00 PM CDT ANTI HIV 1/2 Routine 01/30/2018 2:45 PM CDT STD exposure from Last 3 Months or Most Recently Relevant to Health Maintenance Results * (ABNORMAL) CBC WITH AUTO DIFFERENTIAL (02/14/2025 8:29 PM T) WHITE BLOOD COUNT 6.7 4.5 - 11.0 thou/cu mm 02/14/2025 8:34 PM [facility] RED BLOOD COUNT 4.51 4.00 - 5.20 mil/cu mm 02/14/2025 8:34 PM [facility] HEMOGLOBIN 13.6 12.0 - 16.0 g/dL 02/14/2025 8:34 PM [facility] HEMATOCRIT 39.8 33.0 - 51.0 % 02/14/2025 8:34 PM [facility] MCV 88 80 - 100 fL 02/14/2025 8:34 PM [facility] MCH 30.2 26.0 - 34.0 pg 02/14/2025 8:34 PM [facility] MCHC 34.2 32.0 - 36.0 g/dL 02/14/2025 8:34 PM [facility] RDW 13.7 11.5 - 15.5 % 02/14/2025 8:34 PM [facility] PLATELET COUNT 437 140 - 440 thou/cu mm 02/14/2025 8:34 PM [facility] MPV 8.5 6.5 - 11.0 fL 02/14/2025 8:34 PM [facility] % NEUT 42.0 % 02/14/2025 8:34 PM [facility] % LYMPH 41.7 % 02/14/2025 8:34 PM [facility] % MONO 13.1 % 02/14/2025 8:34 PM [facility] % EOS 3.0 % 02/14/2025 8:34 PM [facility] % BASO 0.2 % 02/14/2025 8:34 PM [facility] ABSOLUTE NEUTROPHILS 2.8 1.7 - 7.0 thou/cu mm 02/14/2025 8:34 PM [facility] ABSOLUTE LYMPHOCYTES 2.8 0.9 - 2.9 thou/cu mm 02/14/2025 8:34 PM CDT [facility] ABSOLUTE MONOCYTES 0.9(H) <0.9 thou/cu mm 02/14/2025 8:34 PM CDT [facility] ABSOLUTE EOSINOPHILS 0.2 <0.5 thou/cu mm 02/14/2025 8:34 PM CDT [facility] ABSOLUTE BASOPHILS 0.0 <0.3 thou/cu mm 02/14/2025 8:34 PM CDT [facility] Blood BLOOD SPECIMEN / Unknown Venipuncture / Unknown 02/14/2025 8:29 PM CDT 02/14/2025 8:31 PM CDT Ester KEY HEMATOLOGY Final Result Performing Organization Address City/[facility]/ZIP Co de Phone Number [facility] [address] [place] [address] * LIPASE (02/14/2025 8:29 PM CDT) Pathologist [facility] LIPASE 24.0 13.0 - 60.0 IU/L 02/14/2025 8:51 PM CDT [facility] Blood BLOOD SPECIMEN / Unknown Venipuncture / Unknown 02/14/2025 8:29 PM CDT 02/14/2025 8:31 PM CDT Ester KEY CHEMISTRY Final Result [facility] [address] [place] [address] * (ABNORMAL) HEPATIC FUNCTION PANEL (02/14/2025 8:29 PM CDT) ALBUMIN 4.2 4.0 - 4.9 g/dL 02/14/2025 8:51 PM CDT [facility] PROTEIN,TOTAL 6.7 6.0 - 8.0 g/dL 02/14/2025 8:51 PM CDT [facility] BILIRUBIN,TOTAL 0.2 0.0 - 1.2 mg/dL 02/14/2025 8:51 PM T [facility] BILIRUBIN,DIRECT 0.1 0.0 - 0.2 mg/dL 02/14/2025 8:51 PM [facility] BILIRUBIN,INDIRE CT 0.1(L) 0.2 - 0.8 mg/dL 02/14/2025 8:51 PM T [facility] ALK PHOSPHATASE 38 35 - 104 IU/L 02/14/2025 8:51 PM [facility] ALT (SGPT) 28 10 - 35 IU/L 02/14/2025 8:51 PM [facility] AST (SGOT) 28 10 - 35 IU/L 02/14/2025 8:51 PM [facility] Blood BLOOD SPECIMEN / Unknown Venipuncture / Unknown 02/14/2025 8:29 PM CDT 02/14/2025 8:31 PM CDT Ester KEY CHEMISTRY Final Result [facility] [address] [place] [address] * (ABNORMAL) BASIC METABOLIC PANEL (02/14/2025 8:29 PM CDT) Only the most recent of2 resultswithin the time period is included. SODIUM 136 136 - 145 mmol/L 02/14/2025 8:51 PM [facility] POTASSIUM 3.4(L) 3.5 - 5.1 mmol/L 02/14/2025 8:51 PM [facility] CHLORIDE 103 98 - 107 mmol/L 02/14/2025 8:51 PM [facility] CO2,TOTAL 22 22 - 29 mmol/L 02/14/2025 8:51 PM [facility] ANION GAP 11 5 - 18 02/14/2025 8:51 PM [facility] GLUCOSE 93 70 - 99 mg/dL 02/14/2025 8:51 PM [facility] CALCIUM 8.8 8.8 - 10.4 mg/dL 02/14/2025 8:51 PM T [facility] Comment: Reference ranges for this test were updated on 08/27/2024 to reflect our healthy population more accurately. Reference range changes are not retroactively applied to results, but previous results using the same methodology can be interpreted in the context of the new reference range. BUN 13 6 - 20 mg/dL 02/14/2025 8:51 PM T [facility] CREATININE 0.72 0.50 - 0.90 mg/dL 02/14/2025 8:51 PM [facility] BUN/CREAT RATIO 18 10 - 20 8:51 PM [facility] eGFR >90 >90 mL/min/1. 73m2 02/14/2025 8:51 PM [facility] Comment:As of 2022, eG FR is calculated by the CKD-EPI creatinine equation without race adjustment. eGFR can be influenced by muscle mass, exercise, and diet. The reported eGFR is an estimation only and is only applicable if the renal function is stable. Blood BLOOD SPECIMEN / Unknown Venipuncture / Unknown 02/14/2025 8:29 PM CDT 02/14/2025 8:31 PM CDT Ester KEY CHEMISTRY Final Result [facility] [address] [place] [address] * CT ABDOMEN PELVIS W (02/11/2025 11:31 AM CDT) Anatomical Region Laterality Modality Abdomen, Pelvis, AORTA, LIVER, SPLEEN Computed Tomography 02/11/2025 11:5 7 AM CDT Impressions 02/11/2025 11:57 AM CDT 1. No evidence of acute appendicitis. 2. Fecalization of distal small bowel contents without evidence of bowel obstruction. Findings may represent delayed transit. Please note that all CT scans at this facility use dose modulation, iterative reconstruction, and/or weight-based dosing when appropriate to reduce radiation dose to as low as reasonably achievable. Dictated by Rubens Ha MD @ 02/11/2025 11:57:56 AM (Electronically Signed) Narrative 02/11/2025 11:57 AM CDT For Patients: As a result of the Cures Act, medical imaging exams and procedure reports are released immediately into your electronic medical record. You may view this report before your referring provider. If you have questions, please contact your health care provider. INDICATION: RLQ abdominal pain TECHNIQUE: CT of the abdomen and pelvis was obtained with 100 mL of Omnipaque 300 intravenous contrast. Oral water was administered. Please note that all CT scans at this facility use dose modulation, iterative reconstruction, and/or weight-based dosing when appropriate to reduce radiation dose to as low as reasonably achievable. COMPARISON: 07/12/2022. FINDINGS: Lower thorax: Normal. Liver and biliary tree: Normal. Gallbladder: Normal. Spleen: Normal. Pancreas: Normal. Adrenal glands: Normal. Kidneys and ureters: No hydronephrosis or obstructing renal calculi. Gastrointestinal tract: Normal appendix. No evidence of bowel obstruction. Fecalization of distal small bowel contents. Peritoneal cavity: Normal. Bladder: Normal. Pelvic organs: Normal. Vasculature: Normal. Lymph nodes: Normal. Abdominal wall: Normal. Musculoskeletal: Normal. Procedure Note Marvin Ha MD - 02/11/2025 For Patients: As a result of the Cures Act, medical imagingexams and procedure reports are released immediately into your electronicmedical record. You may view this report before your referring provider.If you have questions, please contact your health care provider. INDICATION: RLQ abdominal pain TECHNIQUE: CT of the abdomen and pelvis was obtained with 100 mL of Omnipaque 300intravenous contrast. Oral water was administered. Please note that all CT scans at this facility use dose modulation,iterative reconstruction, and/or weight-based dosing when appropriate toreduce radiation dose to as low as reasonably achievable. COMPARISON: 07/12/2022. FINDINGS: Lower thorax: Normal. Liver and biliary tree: Normal. Gallbladder: Normal. Spleen: Normal. Pancreas: Normal. Adrenal glands: Normal. Kidneys and ureters: No hydronephrosis or obstructing renal calculi. Gastrointestinal tract: Normal appendix. No evidence of bowel obstruction.Fecalization of distal small bowel contents. Peritoneal cavity: Normal. Bladder: Normal. Pelvic organs: Normal. Vasculature: Normal. Lymph nodes: Normal. Abdominal wall: Normal. Musculoskeletal: Normal. IMPRESSION: 1. No evidence of acute appendicitis. 2. Fecalization of distal small bowel contents without evidence of bowelobstruction. Findings may represent delayed transit. Please note that all CT scans at this facility use dose modulation,iterative reconstruction, and/or weight-based dosing when appropriate toreduce radiation dose to as low as reasonably achievable. Dictated by Rubens Ha MD @ 02/11/2025 11:57:56 AM (Electronically Signed) us Adrián Farrell DO CT Final Resul t * UA W/ SEDIMENT EXAM REFLEXED PER CRITERIA (02/11/2025 10:38 AM T) COLOR Yellow Yellow Color 02/11/2025 10:45 AM [facility] CLARITY Clear Clear Clarity 02/11/2025 10:45 AM [facility] SPECIFIC GRAVITY,URINE 1.010 1.010, 1.015, 1.020, 1.025 02/11/2025 10:45 AM [facility] PH,URINE 7.0 6.0, 7.0, 8.0, 5.5, 6.5, 7.5, 8.5 02/11/2025 10:45 AM [facility] UROBILINOGEN, QUALITATIVE Normal Normal EU/dl 02/11/2025 10:45 AM [facility] PROTEIN, URINE Negative Negative mg/dL 02/11/2025 10:45 AM [facility] GLUCOSE, URINE Negative Negative mg/dL 02/11/2025 10:45 AM [facility] KETONES,URINE Negative Negative mg/dL 02/11/2025 10:45 AM [facility] BILIRUBIN,URI NE Negative Negative 02/11/2025 10:45 AM [facility] OCCULT BLOOD,URINE Negative Negative 02/11/2025 10:45 AM [facility] NITRITE Negative Negative 02/11/2025 10:45 AM CDT [facility] LEUKOCYTE ESTERASE Negative Negative 02/11/2025 10:45 AM CDT [facility] Urine URINE SPECIMEN / Unknown Non-Blood / Unknown 02/11/2025 10:38 AM CDT 02/11/2025 10:42 AM CDT us Adrián Farrell DO URINE Final Resul t [facility] [address] [facility] [place] [address] * US PELVIS COMPLETE TA AND TV (02/11/2025 10:22 AM CDT) Anatomical Region Laterality Modality Pelvis Ultrasound 02/11/2025 10:4 0 AM CDT Impressions 02/11/2025 10:40 AM CDT Unremarkable pelvic ultrasound. Dictated by Denise Ortega MD @ 02/11/2025 10:40:56 AM (Electronically Signed) Narrative 02/11/2025 10:40 AM CDT For Patients: As a result of the Cures Act, medical imaging exams and procedure reports are released immediately into your electronic medical record. You may view this report before your referring provider. If you have questions, please contact your health care provider. INDICATION: Abnormal bleeding TECHNIQUE: Ultrasound pelvis transabdominal and transvaginal for better assessment or to better visualize the endometrium. Real-time sonographic images with spectral and color Doppler imaging of the ovaries were obtained. COMPARISON: None FINDINGS: Uterus: 8.0 x 4.3 x 3.8 cm. Normal echotexture of the myometrium. No masses. Small nabothian cyst at the level of the cervix. Endometrium: 4 mm in thickness. No sign of endometrial mass or fluid. Right ovary: 2.8 x 2.3 x 1.3 cm. Small follicles. No ovarian or adnexal masses. Normal arterial and venous blood flow. Left ovary: 2.2 x 2.5 x 1.6 cm. Small follicles. No ovarian or adnexal masses. Normal arterial and venous blood flow. Cul-de-sac: No significant free fluid. Procedure Note Alexander Ortega MD - 02/11/2025 For Patients: As a result of the Century Cures Act, medical imagingexams and procedure reports are released immediately into your electronicmedical record. You may view this report before your referring provider.If you have questions, please contact your health care provider. INDICATION: Abnormal bleeding TECHNIQUE: Ultrasound pelvis transabdominal and transvaginal for better assessment orto better visualize the endometrium. Real-time sonographic images withspectral and color Doppler imaging of the ovaries were obtained. COMPARISON: None FINDINGS: Uterus: 8.0 x 4.3 x 3.8 cm. Normal echotexture of the myometrium. [place]. Small nabothian cyst at the level of the cervix. Endometrium: 4 mm in thickness. No sign of endometrial mass or fluid. Right ovary: 2.8 x 2.3 x 1.3 cm. Small follicles. No ovarian or adnexalmasses. Normal arterial and venous blood flow. Left ovary: 2.2 x 2.5 x 1.6 cm. Small follicles. No ovarian or adnexalmasses. Normal arterial and venous blood flow. Cul-de-sac: No significant free fluid. IMPRESSION: Unremarkable pelvic ultrasound. Dictated by Denise Ortega MD @ 02/11/2025 10:40:56 AM (Electronically Signed) us Adrián Farrell DO US Final Resul t * ,SERUM QUALITATIVE (02/11/2025 9:26 AM CDT) ,SERU M Negative Negative 02/11/2025 9:46 AM CDT [facility] Blood BLOOD SPECIMEN / Unknown IV Start / Unknown 02/11/2025 9:26 AM CDT 02/11/2025 9:34 AM CDT Adrián Farrell DO CHEMISTRY Final Resul t [facility] [address] [place] [address] * TYPE AND SCREEN ONLY (02/11/2025 9:26 AM CDT) ABORH O Rh Negative 02/11/2025 10:14 AM T [facility] BLOOD BANK ANTIBODY SCREEN Negative Negative 02/11/2025 10:14 AM T [facility] BLOOD BANK SPECIMEN EXPIRATION DATE/TIME 02/14/25 23:59 02/11/2025 10:14 AM T [facility] BLOOD BANK Blood BLOOD SPECIMEN / Unknown IV Start / Unknown 02/11/2025 9:26 AM CDT 02/11/2025 9:34 AM CDT us Adrián Farrell DO BLOOD BANK Final Resul t [facility] BLOOD BANK [address] [place] [address] * (ABNORMAL) CBC W PLT NO DIFF (02/11/2025 9:26 AM CDT) WHITE BLOOD COUNT 8.7 4.5 - 11.0 thou/cu mm 02/11/2025 9:37 AM [facility] RED BLOOD COUNT 4.48 4.00 - 5.20 mil/cu mm 02/11/2025 9:37 AM [facility] HEMOGLOBIN 13.4 12.0 - 16.0 g/dL 02/11/2025 9:37 AM [facility] HEMATOCRIT 40.6 33.0 - 51.0 % 02/11/2025 9:37 AM [facility] MCV 91 80 - 100 fL 02/11/2025 9:37 AM [facility] MCH 29.9 26.0 - 34.0 pg 02/11/2025 9:37 AM [facility] MCHC 33.0 32.0 - 36.0 g/dL 02/11/2025 9:37 AM [facility] RDW 14.5 11.5 - 15.5 % 02/11/2025 9:37 AM [facility] PLATELET COUNT 483(H) 140 - 440 thou/cu mm 02/11/2025 9:37 AM [facility] MPV 8.6 6.5 - 11.0 fL 02/11/2025 9:37 AM CDT [facility] Blood BLOOD SPECIMEN / Unknown IV Start / Unknown 02/11/2025 9:26 AM CDT 02/11/2025 9:34 AM CDT Adrián Farrell DO HEMATOLOGY Final Resul t [facility] [address] [facility] [place] [address] * DESIGN SALES CONSULTANT THIN PREP PAP SCREEN IMAGED (05/13/2024 3:00 PM CDT) Case Report Gynecologic Cytology Report Case: [id number] Authorizing Provider: Calin Arango MD Collected: 05/13/2024 1500 Ordering Location: [facility] Received: 05/14/2024 1403 First Screen: Dom Friedman Specimen: DESIGN SALES CONSULTANT ThinPrep Vial Screening, Cervical 05/21/2024 12:17 PM CDT [facility] INTERPRETATION/ RESULT NEGATIVE FOR INTRAEPITHELIAL LESION OR MALIGNANCY (NIL) (none) 05/21/2024 12:17 PM CDT [facility] at 1217 CDT SPECIMEN ADEQUACY Satisfactory for evaluation Endocervical component present 05/21/2024 12:17 PM CDT [facility] HPV REQUEST HPV and PAP 05/21/2024 12:17 PM CDT [facility] Date of LMP 05/06/2024 05/21/2024 12:17 PM CDT [facility] Last Pap Date 05/02/2019 05/21/2024 12:17 PM CDT [facility] Last Pap Result NIL 12:17 PM CDT [facility] Abnormal Pap or [place] Bx in last 5 years No 05/21/2024 12:17 PM CDT [facility] Menstrual Status Regular Periods 05/21/2024 12:17 PM CDT [facility] [place] Bx Done Today No 05/21/2024 12:17 PM CDT [facility] Additional Information 05/21/2024 12:17 PM CDT [facility] Comment: Interpreted at [facility] - [address] [facility] [address], [place] [address] Automated Review Successful 05/21/2024 12:17 PM CDT [facility] Comment:Specimen processed s uccessfully by automated tray packer device, [employer] System, [employer] ANCILLARY TESTING DESIGN SALES CONSULTANT HPV Ordered, Please see separate report 05/21/2024 12:17 PM CDT [facility] Note The pap test is [...] and malignant lesions. 05/21/2024 12:17 PM CDT [facility] Other (Cervical) 05/13/2024 3:00 PM CDT 05/14/2024 2:03 PM CDT Calin Arango MD PATHOLOGY/CYTOLOGY Final Result [facility] [address] [place] [address], [place] * ANTI HIV 1/2 (01/30/2018 2:45 PM CDT) HIV-1/HIV-2 ANTIBODY Non-Reacti ve Non-Reacti ve 01/30/2018 9:01 PM CDT [facility] Comment:HIV-1 p24 and HIV-1/ HIV-2 Ab not detected. Blood BLOOD SPECIMEN / Unknown Venipuncture / Unknown 01/30/2018 2:45 PM CDT 01/30/2018 2:46 PM CDT Calin Arango MD SEND OUTS Final Re sult [facility] [address] [place] [address], from Last 3 Months or Most Recently Relevant to Health Maintenance Insurance MEDICAID MEDICAID Member Subscriber Plan / Payer (Ef fective 2025-2025) Name:rAy Brewer Relation to Subscriber:Self Name:Ary Brewer Payer ID:Not on file Group ID:Not on file Type:Not on file Address: [address] REFERRAL Member Subscriber Plan / Payer (Ef fective 2025-Present) Name:Ary Brewer Member ID:[id number] Relation to Subscriber:Self Name:Ary Brewer Subscriber ID:[id number] Payer ID:Not on file Group ID:Not on file Type:Not on file Address: [employer] [facility] [employer] INS [facility] Advance Directives * Full Code (Latest Code [...] 2:03 PM 04/18/2017 7:30 PM Care Teams Engraver Wood Relationship Specialty Start Date End Date Calin Arango MD [address] [place] [id number] PCP - General Family Practice 07/10/20
== END 2025-03-09 16:11 | disposition home or self-care (01) ==
PROVIDERS: Emergency Provider Family Medicine; PCP Family Medicine
DX: L02.416 Cutaneous abscess of left lower limb (principal)
CPT/HCPCS: 10060; 36415; 80048; 85025; 86140; 87070; 87631; 99283; 99284

== ENCOUNTER 2025-08-19 16:40 | Outpatient (CLI) | payer OTHER, SELFPAY | END 2025-08-19 16:41 | disposition home or self-care (01) | PROVIDERS: PCP Family Medicine; Visit Provider Family Medicine | DX: R53.83 Other fatigue (principal) | CPT/HCPCS: 80048; 84443; 85025; 86140 ==